=== PATIENT | male | born 1960 | race Caucasian/White ===

== ENCOUNTER → 2020-02-25 10:27 | Outpatient (BNVA) | payer MEDICARE, MEDICAID, SELFPAY | PROVIDERS: Family Provider Nurse Practitioner Family; PCP Nurse Practitioner Family; Visit Provider Registered Nurse | DX: K59.04 Chronic idiopathic constipation (principal); E78.5 Hyperlipidemia, unspecified; A49.9 Bacterial infection, unspecified; N39.0 Urinary tract infection, site not specified; R51 Headache; G40.909 Epilepsy, unspecified, not intractable, without status epilepticus; R10.9 Unspecified abdominal pain | CPT/HCPCS: 80053; 80061; 81000; 84443; 85025 ==

== ENCOUNTER → 2020-03-02 10:36 | Outpatient (BNVA) | payer MEDICAID, SELFPAY | PROVIDERS: Family Provider Nurse Practitioner Family; PCP Nurse Practitioner Family; Visit Provider Registered Nurse | DX: N39.0 Urinary tract infection, site not specified (principal); A49.9 Bacterial infection, unspecified; R89.9 Unspecified abnormal finding in specimens from other organs, systems and tissues | CPT/HCPCS: 81000 ==

== ENCOUNTER 2020-06-02 12:37 | Emergency (ER) | payer MEDICAID, SELFPAY ==
[2020-06-02] VITALS (8 sets, daily range): BP systolic 158–191; BP diastolic 73–93; PULSE 71–89; RESP 18–24; TEMP 36.3–36.6; O2SAT 96–98; BMI 32.8
--- NOTE | 2020-06-02 | CT_ITS ---
WS: [id number] EXAM: CT angio head neck* [id number] DATE OF EXAMINATION: 06/02/2020, 1705 hours COMPARISON: Noncontrast head CT from the same date. HISTORY: 59 years old with strokelike symptoms for the last 4 days. Right hand numbness. TECHNIQUE: Transaxial computed tomography images obtained from the level of the aortic arch through t he cranial vertex utilizing 95 mL of Omnipaque 350 with images acquired in the arterial phase and vie wed in multiple windows with 2-D reconstructions. DLP: 2742.[address] scans at [facility] use at least one of these dose optimization techniques: automat ed exposure control; mA and/or kV adjustment per patient size (includes targeted exams where dose is matched to clinical indication); or iterative reconstruction. FINDINGS: There is a minute amount of calcified plaque at the top of the aortic arch. There is slight intimal t hickening within both the right innominate artery and the left common carotid artery. Right common ca rotid artery is normal in caliber. There is a small amount of soft plaque and calcified plaque at the level of the bulb without extensively narrowing of the lumen. Right internal carotid artery is gonzales l through the level of the skull base other than some minimal calcified plaque. There is normal bifur cation into the anterior and middle cerebral arteries. Prominent posterior communicating artery is se en on this side as well. Right middle cerebral artery distribution and anterior cerebral artery distr ibution are unremarkable. The left common carotid artery shows a small amount of thickening. Soft and calcified plaque at the l evel of bulb without extensive narrowing of the lumen. Left internal carotid artery is normal through the level of the skull base and divides into the middle cerebral artery and anterior cerebral arteri es which are otherwise unremarkable. No findings of vascular malformation, aneurysm or occlusion are identified. There is normal origin to both vertebral arteries. Both vertebral arteries are of normal caliber. The y both contribute to a single basilar artery which is slightly ectatic suggesting underlying hyperten radha. Posterior superior cerebellar arteries, P1 and P2 segments are otherwise unremarkable. 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 There are advanced degenerative spondy losis changes C3-4 level with facet arthropathy changes uncovertebral joints appear changes causing r ight neural foraminal stenosis. Degenerative changes at the C4-5 level with bilateral mild neural for aminal stenosis. C5-6 level shows degenerative changes with left uncovertebral joint hypertrophy wu ges and mild left neural foraminal stenosis. Severe emphysematous lung changes are seen in the lung apices as well as underlying bronchiectasis. Shotty adenopathy within the mediastinum is presumably reactive in nature. No fracture or subluxation malalignment is noted. Thyroid gland is normal in size. Bilateral parotid glands and submandibular salivary glands are gonzales l in appearance. CT/CT angio headneck* [id number] IMPRESSION: Findings of slight soft and calcified plaque within both carotid systems as michael cribed. No findings of a hemodynamically significant stenosis in either carotid system seen. No findings of aneurysm, vascular malformation or occlusion demon strated. 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 Please see individual level description is as described in the body of the report. Severe underlying emphysematous lung changes.
--- NOTE | 2020-06-02 13:11 | ED_ITS ---
HPI - Neuro Symptoms/Deficit General: Chief Complaint: Neuro Symptoms/Deficit Stated Complaint: lips/hand numbness and tingling Time Seen by Provider: 06/02/20 13:11 Source: patient, family and RN notes reviewed History of Present Illness: HPI Narrative: 59 yo male with reported numbness of right face, upper and lower extremity (all on right side) every night for last 4 nights. no symptoms currently. no hx of cva or TIA. also gives information and when I ask if he had slurred speech she said yes because his face was numb on the right side. He does not take any blood thinners or aspirin. He does have a history of high blood pressure. No headache or other symptoms with this. Associated symptoms: Deny chest pain, headache(s), nausea or vomiting Review of Systems General: Reports: 10 or more systems reviewed and unremarkable except in HPI and below Const: Denies: fever(s) or chills Eyes: Denies: change in vision ENMT: Denies: throat pain Card: Denies: chest pain Resp: Denies: dyspnea GI: Denies: abdominal pain, nausea, vomiting or change in bowel habits Musc: Denies: muscle weakness Skin/Breast: Denies: rash Neuro: Reports: other (See HPI); Denies: headache(s) Psych: Denies: hopelessness or suicidal ideation Endo: Denies: polyuria Sriram/Lymph: Denies: easy bruising or easy bleeding All/Imm: Denies: urticaria PFS ED PFSH: Medical History (Updated 06/02/20 @ 17:31 by Joselyn Bellamy MD) Seizure Seizure disorder Family History Other Diabetes Heart disease Social History Smoking and tobacco status: current every day smoker cigarettes Packs smoked per day: 1 Alcohol intake: never Adopted: No Caregiver/support person: No Lives independently: No Household members: spouse Marital status: History of recent travel: No Sexually active: Yes Current gender identity: Male Physical Exam Const: COMMON NORMALS: no acute distress, patient oriented x3, alert and well nourished HENMT: COMMON NORMALS: normocephalic and Normal external nose present HEAD & SCALP: normocephalic NOSE: Normal external nose present MOUTH: no trismus Eye: COMMON NORMALS: EOMs intact bilaterally and conjunctivae normal CONJUNCTIVA: Yes conjunctivae normal Neck/C-Spine: COMMON NORMALS: full ROM, no lymphadenopathy and supple CERVICAL SPINE: Yes cervical ROM normal Lymph: LYMPHATIC: no lymphadenopathy noted Resp: COMMON NORMALS: normal respiratory effort, No retractions, No use of accessory muscles and clear to auscultation bilaterally EFFORT & INSPECTION: Yes able to speak in complete sentences AUSCULTATION: clear to auscultation bilaterally Cardio: COMMON NORMALS: regular rate and regular rhythm RATE: regular rate RHYTHM: regular rhythm GI: COMMON NORMALS: Normal to inspection, nondistended, normoactive bowel sounds present, Soft to palpation, non-tender and no masses INSPECTION: Yes normal to inspection AUSCULTATION: Yes normoactive bowel sounds PALPATION: Yes Soft to palpation, No Guarding due to palpation present (GI) and No Rigid due to palpation Back/Pelvis: OTHER: Normal range of motion Extremity: GENERAL: Yes normal exam except as noted Neuro: COMMON NORMALS: patient oriented x3, CN's II-XII intact bilaterally, no focal motor deficits and no sensory deficits noted SENSORIUM/ORIENTATION: Yes alert SPEECH: speech normal MOTOR EXAM: 5/5 motor strength present throughout and No Pronator motor function not present Psych: COMMON NORMALS: mental status grossly normal Skin: COMMON NORMALS: no rashes or lesions noted GENERAL SKIN EXAM: no rashes or lesions noted Course Vital Signs: Vital signs: Vital Signs Temperature 97.8 F 06/02/20 18:51 Pulse Rate 76 06/02/20 18:51 Respiratory Rate 18 06/02/20 18:51 Blood Pressure 170/93 06/02/20 18:51 Pulse Oximetry 96 06/02/20 18:51 MDM - Neuro Symptoms/Deficit MDM Narrative: Medical decision making narrative: 59-year-old male with symptoms that sound like a TIA for the last 3-[address] Maldonado, neurologist. She recommended CTA prior to discharge just to rule out LVO. She states patient can go home and have outpatient echo ordered which I have done and start Plavix 81 mg of aspirin and Lipitor 40 mg and follow-up in neurology clinic within the next 2 weeks. I will give patient all this information as well as prescriptions. He has had no symptoms while here and was happy with plan to go home. Lab Data: Attestation: I reviewed the patient's lab results. Labs: Lab Results 06/02/20 06/02/20 06/02/20 Range/Units 13:24 13:24 13:24 WBC 10.2 H (4.0-10.0) 10^3/ uL RBC 5.23 (4.1-5.3) 10^6/u L Hgb 15.9 (11.7-16.6) g/dL Hct 48.6 (42.0-52.0) % MCV 92.9 (80-94) fL MCH 30.4 (28.0-34.0) pg MCHC 32.7 (30.0-36.0) g/dL RDW 12.6 (12.1-15.1) % Plt Count 193 (130-400) 10^3/c mm MPV 9.8 (7.4-10.4) fL Neut % (Auto) 42.0 % Lymph % (Auto) 48.9 % [place] % (Auto) 6.5 % Eos % (Auto) 1.8 % Baso % (Auto) 0.6 % Neut # (Auto) 4.30 (1.8-7.7) 10^3/u L Lymph # (Auto) 5.0 H (0.8-4.8) 10^3/u L [place] # (Auto) 0.7 (0.2-0.9) 10^3/u L Eos # (Auto) 0.2 (0.0-0.8) 10^3/u L Baso # (Auto) 0.1 (0.0-0.1) 10^3/u L Nucleated RBC % (a uto) 0 % Nucleated RBCs # 0.0 /100WBC PT 12.30 (12.1-14.9) SECO NDS INR 0.89 (0.8-1.2) Sodium 139 (136-145) mmol/L Potassium 3.9 (3.5-5.1) mmol/L Chloride 102 (98-107) mmol/L Carbon Dioxide 26 (22-29) mmol/L Anion Gap 14.9 (5-19) BUN 9 (8-23) mg/dL Creatinine 0.9 (0.7-1.2) mg/dL GFR Calculation 85.8 L (90-130) mL/min Glucose 144 H (65-115) mg/dL Calculated Osmolal ity 287 (285-295) mOsm/k g Calcium 9.2 (8.5-10.5) mg/dL Total Bilirubin 0.5 (0.15-1.2) mg/dL AST 16 (0-40) U/L ALT 13 (0-41) U/L Alkaline Phosphata se 106 (40-130) IU/L Total Protein 7.5 (6.6-8.7) g/dL Albumin 4.3 (3.5-5.2) g/dL Globulin 3.2 (1.3-4.6) g/dL Imaging Data^: CT Head: Radiologist's impression: CT Scan Report Signed Patient: Frantz Macias #: [id number] : 8Acct#:[id number] Age/Sex: 59 / MADM Date: 06/02/20 Loc: ERRoom/Bed: Attending Dr: Ordering Provider/Ordering MD: Joselyn Bellamy MD Date of Service: 06/02/20 Procedure(s): CT head wo con* [id number] Accession Number(s): [id number] Report Number: [id number] WS: [id number] CT HEAD NONCONTRAST HISTORY: stroke sx for 4 days TECHNIQUE: Contiguous axial imaging performed through the brain in 2.5 mm imaging. Bone and soft tissue windows. Sagittal and coronal reformats reviewed. All CT scans at [facility] use at least one of these dose optimization techniques: automated exposure control; mA and/or kV adjustment per patient size (includes targeted exams where dose is matched to clinical indication); or iterative reconstruction. DLP: 754.4 mGy.cm COMPARISON: None available. No acute intracranial hemorrhage, midline shift or mass effect. Very minimal atrophy. Scattered areas of decreased attenuation in the periventricular white matter and through the basal ganglia and anterior limbs of internal capsules. Prior lacunar infarct LEFT thalamus. Area of decreased attenuation RIGHT occipital lobe. No large area of sulcal effacement. Ventricles: Normal size with no hydrocephalus. Paranasal sinuses: As visualized are clear. Mastoid air cells: Well pneumatized. Calvarium and scalp: Skull is intact with no soft tissue edema or swelling. CT/CT head wo con* [id number] IMPRESSION: 1. No acute intracranial hemorrhage or edema. 2. Chronic microvascular ischemic changes. Prior lacunar infarct RIGHT occipital lobe and LEFT thalamus. Additional lucent lacunar infarcts in the anterior limbs of internal capsules bilateral. Dictated By:Stephanie Miles DO Signed By:Stephanie Miles DOSigned Date/Time:06/02/20 1452 cta head and neck: Radiologist's impression: WS: [id number] EXAM: CT angio head neck* [id number] DATE OF EXAMINATION: 06/02/2020, 1705 hours COMPARISON: Noncontrast head CT from the same date. HISTORY: 59 years old with strokelike symptoms for the last 4 days. Right hand numbness. TECHNIQUE: Transaxial computed tomography images obtained from the level of the aortic arch through the cranial vertex utilizing 95 mL of Omnipaque 350 with images acquired in the arterial phase and viewed in multiple windows with 2-D reconstructions. DLP: 2742.[address] scans at [facility] use at least one of these dose optimization techniques: automated exposure control; mA and/or kV adjustment per patient size (includes targeted exams where dose is matched to clinical indication); or iterative reconstruction. FINDINGS: There is a minute amount of calcified plaque at the top of the aortic arch. There is slight intimal thickening within both the right innominate artery and the left common carotid artery. Right common carotid artery is normal in caliber. There is a small amount of soft plaque and calcified plaque at the level of the bulb without extensively narrowing of the lumen. Right internal carotid artery is normal through the level of the skull base other than some minimal calcified plaque. There is normal bifurcation into the anterior and middle cerebral arteries. Prominent posterior communicating artery is seen on this side as well. Right middle cerebral artery distribution and anterior cerebral artery distribution are unremarkable. The left common carotid artery shows a small amount of thickening. Soft and calcified plaque at the level of bulb without extensive narrowing of the lumen. Left internal carotid artery is normal through the level of the skull base and divides into the middle cerebral artery and anterior cerebral arteries which are otherwise unremarkable. No findings of vascular malformation, aneurysm or occlusion are identified. There is normal origin to both vertebral arteries. Both vertebral arteries are of normal caliber. They both contribute to a single basilar artery which is slightly ectatic suggesting underlying hypertension. Posterior superior cerebellar arteries, P1 and P2 segments are otherwise unremarkable. 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 There are advanced degenerative spondylosis changes C3-4 level with facet arthropathy changes uncovertebral joints appear changes causing right neural foraminal stenosis. Degenerative changes at the C4-5 level with bilateral mild neural foraminal stenosis. C5-6 level shows degenerative changes with left uncovertebral joint hypertrophy changes and mild left neural foraminal stenosis. Severe emphysematous lung changes are seen in the lung apices as well as underlying bronchiectasis. Shotty adenopathy within the mediastinum is presumably reactive in nature. No fracture or subluxation malalignment is noted. Thyroid gland is normal in size. Bilateral parotid glands and submandibular salivary glands are normal in appearance. CT/CT angio headneck* [id number] IMPRESSION: Findings of slight soft and calcified plaque within both carotid systems as described. No findings of a hemodynamically significant stenosis in either carotid system seen. No findings of aneurysm, vascular malformation or occlusion demonstrated. 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 Please see individual level description is as described in the body of the report. Severe underlying emphysematous lung changes. Dictated By:Cedrick Herman MD Signed By:Cedrick Hermanigned Date/Time:06/02/20 1736 EKG Data^: EKG 1: Attestation: I personally reviewed and interpreted this EKG as follows: Interpretation: EKG obtained 02 June 2020 at 1340 interpreted by me on same date at 1342. Sinus rhythm rate 78 normal IL interval, no acute ST elevation. Nonspecific ST changes. Discharge Plan Discharge Patient Disposition: Home Clinical Impression: Transient ischemic attack Condition: Stable Prescriptions: New Plavix 75 mg tablet 75 mg PO DAILY Qty: 30 RF: 0 Adult Aspirin Regimen 81 mg tablet,delayed release (DR/EC) 81 mg PO DAILY Qty: 30 RF: 0 Lipitor 40 mg tablet 40 mg PO DAILY Qty: 30 RF: 0 No Action topiramate [Topamax] 50 mg tablet 50 mg PO DAILY Qty: 90 RF: 1 lamotrigine [Lamictal] 100 mg tablet 100 mg PO BID 90 Days Qty: 180 RF: 1 magnesium hydroxide [Lu Milk of Magnesia] 400 mg/5 mL suspension See Rx Instructions .ROUTE .COMPLEX RF: 0 potassium gluconate 595 mg (99 mg) Tablet 595 mg PO DAILY RF: 0 hawthorn schultz 565 mg Capsule 565 mg PO DAILY PRN (Reason: UNKNOWN) RF: 0 Marin[place]-3 350 mg-235 mg- 90 mg-597 mg Capsule,Delayed Release(Dr/Ec) 1 cap PO BID RF: 0 lutein 1 cap PO DAILY RF: 0 Discharge Orders: Discharge Order (Routine); Ordered 06/02/20 Ordered By: Joselyn Bellamy Referrals: Nancy Maldonado MD [Physician] - (TIA, outpt echo ordered. started him on plavix , asa, lipitor as per discussion with Dr Maldonado. Needs to be seen within 1-2 weeks) Tracy Keys FNP [Primary Care Provider] - Coding Level of Care Code ED [place] [employer]er for Chg Fwd Exam Comprehensive
--- NOTE | 2020-06-02 13:12 | CT_ITS ---
WS: [id number] CT HEAD NONCONTRAST HISTORY: stroke sx for 4 days TECHNIQUE: Contiguous axial imaging performed through the brain in 2.5 mm imaging. Bone and soft tiss ue windows. Sagittal and coronal reformats reviewed. All CT scans at [facility] use at le ast one of these dose optimization techniques: automated exposure control; mA and/or kV adjustment pe r patient size (includes targeted exams where dose is matched to clinical indication); or iterative r econstruction. DLP: 754.4 mGy.cm COMPARISON: None available. No acute intracranial hemorrhage, midline shift or mass effect. Very minimal atrophy. Scattered areas of decreased attenuation in the periventricular white matter an d through the basal ganglia and anterior limbs of internal capsules. Prior lacunar infarct LEFT thala mus. Area of decreased attenuation RIGHT occipital lobe. No large area of sulcal effacement. Ventricles: Normal size with no hydrocephalus. Paranasal sinuses: As visualized are clear. Mastoid air cells: Well pneumatized. Calvarium and scalp: Skull is intact with no soft tissue edema or swelling. CT/CT head wo con* [id number] IMPRESSION: 1. No acute intracranial hemorrhage or edema. 2. Chronic microvascular ischemic changes. Prior lacunar infarct RIGHT occipit al lobe and LEFT thalamus. Additional lucent lacunar infarcts in the anterior l imbs of internal capsules bilateral.
--- NOTE | 2020-06-02 13:24 | ECG_ITS ---
[facility] Test Date: 2020-06-02 Pat Name: Frantz Macias Department: Room: Gender: Male [employer]: : 1960 Requested By: Joselyn Bellamy Order Number: [id number] MD: Frida Schrader M.D. Measurements Intervals Rudyard Rate: 78 P: 76 ME: 195 QRS: 59 QRSD: 101 T: 7 QT: 400 QTc: 457 Interpretive Statements SINUS RHYTHM No previous ECG available for comparison Electronically Signed On 06-02-2020 14:25:21 CDT by Frida Schrader M.D. [id number]
[2020-06-02 13:34] LABS: Basophils # 0.1 10^3/uL (0.0-0.1); Basophils % 0.6 %; Eosinophils # 0.2 10^3/uL (0.0-0.8); Eosinophils % 1.8 %; Hematocrit 48.6 % (42.0-52.0); Hemoglobin 15.9 g/dL (11.7-16.6); Lymphocytes % 48.9 %; Mean Corpuscular HGB Conc 32.7 g/dL (30.0-36.0); Mean Corpuscular Hemoglobin 30.4 pg (28.0-34.0); Mean Corpuscular Volume 92.9 fL (80-94); Mean Platelet Volume 9.8 fL (7.4-10.4); Monocytes # 0.7 10^3/uL (0.2-0.9); Monocytes % 6.5 %; Nucleated Red Blood Cells % 0 %; Platelet Count 193 10^3/cmm (130-400); Red Blood Count 5.23 10^6/uL (4.1-5.3); Red Cell Distribution Width 12.6 % (12.1-15.1); White Blood Count 10.2 10^3/uL (4.0-10.0)
[2020-06-02 13:48] LABS: INR 0.89 (0.8-1.2)
[2020-06-02 13:55] LABS: Alanine Aminotransferase 13 U/L (0-41); Albumin Level 4.3 g/dL (3.5-5.2); Alkaline Phosphatase 106 IU/L (40-130); Anion Gap 14.9 (5-19); Aspartate Amino Transferase 16 U/L (0-40); Blood Urea Nitrogen 9 mg/dL (8-23); Calcium 9.2 mg/dL (8.5-10.5); Carbon Dioxide 26 mmol/L (22-29); Chloride 102 mmol/L (98-107); Globulin 3.2 g/dL (1.3-4.6); Glomerular Filtration Rate 85.8 mL/min (90-130); Glucose 144 mg/dL (65-115); Osmolality Calculated 287 mOsm/kg (285-295); Potassium 3.9 mmol/L (3.5-5.1); Sodium 139 mmol/L (136-145); Total Bilirubin 0.5 mg/dL (0.15-1.2); Total Protein 7.5 g/dL (6.6-8.7)
--- NOTE | 2020-06-02 16:14 | PC.NURSE ---
Waiting for CTA before discharge
[2020-06-02] MEDS: iohexol 350 mg/mL 100 mL Btl IV (17:09)
--- NOTE | 2020-06-03 13:55 | DCPLANNER ---
manager garage had message to schedule a outpatient echo for patient. manager garage faxed patients order to centralized scheduling. manager garage will call for appointment information.
--- NOTE | 2020-06-05 14:37 | DCPLANNER ---
Patient has an echo scheduled for Wednesday, July 01, 2020 at 3:45. Centralized scheduling will call patient with appointment information.
--- NOTE | 2020-07-10 15:43 | DCPLANNER ---
Patient had a follow up appointment scheduled for 07.01.20 for an outpatient echo - patient did attend appointment.
== END 2020-06-02 19:10 | disposition home or self-care (01) ==
PROVIDERS: Emergency Provider Emergency Medicine; PCP Registered Nurse
DX: G45.9 Transient cerebral ischemic attack, unspecified (principal); F17.210 Nicotine dependence, cigarettes, uncomplicated
CPT/HCPCS: 12345; 70450; 70496; 70498; 80053; 85025; 85610; 93005; 99283; Q9967

== ENCOUNTER → 2020-06-15 09:50 | Outpatient (BNVA) | payer MEDICARE, MEDICAID, SELFPAY | PROVIDERS: PCP Registered Nurse; Referring Provider Emergency Medicine; Visit Provider Nurse Practitioner | DX: G45.9 Transient cerebral ischemic attack, unspecified (principal); G81.90 Hemiplegia, unspecified affecting unspecified side; I63.9 Cerebral infarction, unspecified | CPT/HCPCS: 99204 ==

== ENCOUNTER 2020-06-15 11:52 | Outpatient (CLI) | payer MEDICARE, MEDICAID, SELFPAY ==
[2020-06-15 12:53] LABS: Thyroid Stimulating Hormone 2.26 uIU/mL (0.27-4.20)
[2020-06-15 13:17] LABS: Estmated Average Glucose 111; Hemoglobin A1C 5.5 % (4.0-6.0)
== END 2020-06-15 11:53 | disposition home or self-care (01) ==
LOC: LAB 11:55
PROVIDERS: PCP Registered Nurse; Visit Provider Nurse Practitioner
DX: G45.9 Transient cerebral ischemic attack, unspecified (principal); G81.90 Hemiplegia, unspecified affecting unspecified side
CPT/HCPCS: 36415; 83036; 84443

== ENCOUNTER 2020-07-01 15:39 | Outpatient (CLI) | payer MEDICAID, SELFPAY ==
--- NOTE | 2020-07-01 15:51 | USCV_ITS ---
Frantz Macias Age: 59 Gender: M : 1960 Exam Date: 07/01/2020 16:00 Ordering Phys: Joselyn Bellamy MD Technologist: Suni Mera Exam Location: [facility] [place] Indication: SON TIA BP: / HR: 80 Rhythm: Sinus Technical Quality: Adequate MEASUREMENTS (Male / Female) Normal Values 2D ECHO LV Diastolic Diameter PLAX 3.4 cm 4.2 - 5.9 / 3.9 - 5.3 cm LV Systolic Diameter PLAX 3.3 cm LV Chamber Size 4.5 cm IVS Diastolic Thickness 1.5 cm 0.6 - 1.0 / 0.6 - 0.9 cm IVS Systolic Thickness 1.7 cm LVPW Diastolic Thickness 1.7 cm 0.6 - 1.0 / 0.6 - 0.9 cm LVPW Systolic Thickness 1.9 cm RV Chamber Size 2.3 cm LVOT Diameter 2.0 cm LV Ejection Fraction 2D Teich 26.2 % LV Ejection Fraction MOD 2C 62.0 % LV Ejection Fraction 2C AL 62.4 % LA Diameter 3.3 cm LA Width 3.7 cm LA Height 3.9 cm RA Width 3.0 cm RA Height 3.7 cm Aorta at Sinotubular Diameter 3.0 cm M-MODE LV Diastolic Diameter MM 5.1 cm 4.2 - 5.9 / 3.9 - 5.3 cm LV Systolic Diameter MM 3.4 cm LV Ejection Fraction MM Teich 61.2 % IVS Diastolic Thickness MM 1.1 cm 0.6 - 1.0 / 0.6 - 0.9 cm IVS Systolic Thickness MM 1.5 cm LVPW Diastolic Thickness MM 1.2 cm 0.6 - 1.0 / 0.6 - 0.9 cm LVPW Systolic Thickness MM 1.8 cm RV Diastolic Diameter MM 1.1 cm Aortic Annulus Diameter 2.8 cm LA Ao Ratio MM 1.4 MV E Point Septal Separation 0.6 cm DOPPLER AV Peak Velocity 174.0 cm/s LVOT Peak Velocity 84.3 cm/s AV Area Cont Eq vti 1.7 cm squared AV Area Cont Eq pk 1.6 cm squared MV Area PHT 6.9 cm squared Mitral E to A Ratio 0.9 MV E' Velocity 56.5 cm/s Mitral E to MV E' Ratio 9.3 Mitral E to LV E' Lateral Ratio 9.0 Mitral E to LV E' Septal Ratio 9.5 TR Peak Velocity 147.3 cm/s TR Peak Gradient 8.7 mmHg TR Mean Velocity 100.0 cm/s TR Mean Gradient 4.4 mmHg TR Velocity Time Integral 27.5 cm TV Peak E Velocity 67.0 cm/s PV Peak Velocity 50.0 cm/s RV Acceleration Time 0.2 s RV Ejection Time 0.4 s RV AcT/ET 0.5 FINDINGS Left Ventricle Normal left ventricular size, systolic function and wall thickness, with no regional wall motion abnormalities. LVEF is 55 to 60%. Normal left ventricular wall thickness. Normal diastolic filling pattern. Right Ventricle The right ventricle is normal in size and function. Right Atrium The right atrium is normal in size. Left Atrium The left atrium is normal in size. Mitral Valve Structurally normal mitral valve without significant stenosis or prolapse. There is no mitral regurgitation. Aortic Valve Aortic valve is thickened. No significant stenosis is noted. There is no aortic regurgitation. Tricuspid Valve Structurally normal tricuspid valve without significant stenosis or regurgitation. Insufficient TR jet to calculate RVSP. Pulmonic Valve Structurally normal pulmonic valve without significant stenosis. There is no pulmonic regurgitation. Pericardium Normal pericardium without effusion. Aorta Normal ascending aorta dimension. CONCLUSIONS LV systolic function is normal with EF of 55 to 60%. Normal diastolic function. No significant valvular heart disease is noted. No comparison studies are available. Vasquez López MD (Electronically Signed) Final Date: 13 July 2020 18:25 S
== END 2020-07-01 15:40 | disposition home or self-care (01) ==
LOC: US 15:41
PROVIDERS: PCP Registered Nurse; Visit Provider Emergency Medicine
DX: G45.9 Transient cerebral ischemic attack, unspecified (principal)
CPT/HCPCS: 93306

== ENCOUNTER 2021-02-09 18:25 | Emergency (ER) | payer MEDICARE, MEDICAID, SELFPAY ==
[2021-02-09 18:43] VITALS: BP 168/82; PULSE 88; RESP 18; TEMP 36.8; O2SAT 95; BMI 27.3
--- NOTE | 2021-02-09 19:06 | PC.NURSE ---
non adherent pressure dressing applied in triage. bleeding controlled.
--- NOTE | 2021-02-09 19:37 | XRR_ITS ---
PROCEDURE INFORMATION: Exam: XR Right Forearm Exam date and time: 02/09/2021 7:56 PM Age: 60 years old Clinical indication: Injury or trauma; Arm, lower; Injury date: 02/09/21; Injury details: Dog bite to right forearm w/ deep lac; Additional info: Dog bite with deep laceration TECHNIQUE: Imaging protocol: XR Right forearm. Views: 2 views. COMPARISON: No relevant prior studies available. FINDINGS: Bones/joints: Normal. Soft tissues: Soft tissue emphysema over the dorsal forearm consistent with history of penetrating trauma. XR/XR forearm RT 2V [id number] IMPRESSION: Soft tissue emphysema over the dorsal forearm consistent with history of penetrating trauma.
--- NOTE | 2021-02-09 22:34 | ED_ITS ---
HPI - Animal Bite General: Chief Complaint: Animal Bite Stated Complaint: DOG BITE R FOREARM Time Seen by Provider: 02/09/21 22:25 History of Present Illness: HPI narrative: Patient is a 60-year-old male comes to the ED with a dog bite to right forearm. Patient was trying to break up a dog that just attacked and bit his significant other. Dog has not had rabies vaccination. Patient says he is not up-to-date on his tetanus. He now has a large laceration to right forearm and he rates his pain a 10 out of 10. He states he has not taken anything for pain before coming to the ED. Associated symptoms: Deny chills, fever(s) or headache(s) Review of Systems Const: Denies: fever(s), chills or fatigue Eyes: Denies: change in vision or eye discomfort ENMT: Denies: throat pain, odynophagia, nasal discharge or nasal congestion Card: Denies: chest pain, palpitations, edema, swelling of feet/ankles, dyspnea on exertion or orthopnea Resp: Denies: dyspnea, productive cough or non-productive cough GI: Denies: abdominal pain, nausea, vomiting, diarrhea, constipation or hematochezia : Denies: flank pain, difficulty urinating, dysuria or hematuria Musc: Denies: neck pain, back pain or extremity swelling Skin/Breast: Reports: new lesions (Large laceration to right forearm from dog bite); Denies: rash Neuro: Denies: headache(s), numbness in extremities or weakness in extremities REPLACED BY [facility] ED PFSH: Medical History COPD (chronic obstructive pulmonary disease) Hemiparesis Seizure Seizure disorder Family History Other Diabetes Heart disease Social History Smoking and tobacco status: current every day smoker cigarettes Packs smoked per day: 1 Alcohol intake: never Adopted: No Caregiver/support person: No Lives independently: No Household members: spouse Marital status: History of recent travel: No Sexually active: Yes Current gender identity: Male Physical Exam Const: COMMON NORMALS: patient oriented x3 and alert GENERAL APPEARANCE: cooperative and comfortable HENMT: COMMON NORMALS: normocephalic HEAD & SCALP: normocephalic MOUTH: Normal oral and palatal mucosa present THROAT: posterior oropharynx normal and uvula midline Neck/C-Spine: COMMON NORMALS: supple GENERAL: Yes normal visual inspection Resp: COMMON NORMALS: normal respiratory effort, No retractions, No use of accessory muscles and clear to auscultation bilaterally AUSCULTATION: clear to auscultation bilaterally Cardio: COMMON NORMALS: regular rate, regular rhythm, S1 normal heart sound present, S2 normal heart sound present, No gallops present (Cardio), No clicks present (Cardio), No murmurs present (Cardio) and Peripheral pulses 2+ throughout RATE: regular rate RHYTHM: regular rhythm HEART SOUNDS: S1 normal heart sound present and S2 normal heart sound present PERIPHERAL PULSES: Peripheral pulses 2+ throughout GI: COMMON NORMALS: Normal to inspection, nondistended, normoactive bowel sounds present, Soft to palpation, non-tender and no masses PALPATION: Yes Soft to palpation : COMMON NORMALS: Yes no CVA tenderness BLADDER/KIDNEY EXAM: Yes no CVA tenderness Back/Pelvis: COMMON NORMALS: no CVA tenderness Extremity: NARRATIVE EXTREMITY EXAM: Right forearm?patient has large superficial V-shaped laceration that is approximately 20 cm in length. Mild active bleeding present. No visible tendon damage seen. Patient also has a small linear and superficial 1 cm laceration to forearm as well. Neurovascular tact distally. GENERAL: Yes normal exam except as noted Neuro: COMMON NORMALS: patient oriented x3 and moves all extremities SENSORIUM/ORIENTATION: Yes alert Skin: NARRATIVE SKIN EXAM: Patient has a large superficial V-shaped laceration on right forearm that is approximately 20 cm in length. He also has a second laceration that is linear and superficial approximately 1 cm in length on the forearm as well. GENERAL SKIN EXAM: dry skin Procedures Laceration Laceration 1: Site: upper extremity (Forearm) Side (If applicable): right Size (cm): 20 Description: irregular (Irregular V shaped) Depth: simple, single layer Local Anesthetic: lidocaine 1% and with epi Amount of anesthesia used (mL): 35 Pre-repair: wound explored and irrigated extensively (with multiple bottles of normal saline and skin cleaned with CHG swab.) Skin layer closed with: nylon Size (cm): 3-0 Number of sutures: 30 Technique: simple, interrupted Laceration 2: Site: upper extremity (Forearm) Side (If applicable): right Size (cm): 1 Description: linear Depth: simple, single layer Local Anesthetic: lidocaine 1% and with epi Amount of anesthesia used (mL): 5 Pre-repair: irrigated extensively (With normal saline) Skin layer closed with: nylon Size (cm): 3-0 Number of sutures: 2 Technique: simple, interrupted Course Vital Signs: Vital signs: Vital Signs Temperature 98.2 F 02/09/21 18:43 Pulse Rate 92 02/10/21 01:04 Respiratory Rate 16 02/10/21 01:04 Blood Pressure 172/81 02/10/21 01:04 Pulse Oximetry 93 02/10/21 01:04 MDM - Animal Bite MDM Narrative: Medical decision making narrative: Patient is a 60-year-old male comes to the ED with laceration on forearm due to dog bite. Patient owns the dog and it is not vaccinated for rabies. Patient said he is going to have dog quarantined animal control for evaluation for rabies. I told him to come back to the ED and 24 to 48 hours if he is unable to do that any wants to start rabies vaccination series. Patient has 1 very large V-shaped laceration in the second laceration is small linear lack. Patient's lacerations was irrigated extensively with normal saline and skin was cleaned with CHG swab. The larger laceration was closed with 30 sutures and the second laceration was closed using 2 sutures. Lidocaine 1% with epi was used as local. X-ray showed no bone fractures but did show the soft tissue damage. Patient was given a dose of Augmentin, updated tetanus and hydrocodone for pain while here in the ED. He was discharged home on a prescription for Augmentin. He was instructed on how to care for laceration site and to have sutures removed in about 10 days. He was told to return to the ED immediately if he wants to start the rabies series vaccination. Patient understood agree with plan. Imaging Data^: Xray Ortho: Attestation: I personally reviewed and interpreted this imaging study as follows: Radiologist's impression: [address] [address]DNsu ReportSigned Patient: Frantz Macias [place] #: [id number]#:[id number]/Sex: 60 / MADM Date: 02/09/21Loc: ERRoom/Bed:Attending Dr: Ordering Provider/Ordering MD: Tristen Joshi Date of Service: 02/09/21 Procedure(s): XR forearm RT 2V 17057 Accession Number(s): [id number] Report Number: [id number] PROCEDURE INFORMATION: Exam: XR Right Forearm Exam date and time: 02/09/2021 7:56 PM Age: 60 years old Clinical indication: Injury or trauma; Arm, lower; Injury date: 02/09/21; Injury details: Dog bite to right forearm w/ deep lac; Additional info: Dog bite with deep laceration TECHNIQUE: Imaging protocol: XR Right forearm. Views: 2 views. COMPARISON: No relevant prior studies available. FINDINGS: Bones/joints: Normal. Soft tissues: Soft tissue emphysema over the dorsal forearm consistent with history of penetrating trauma. XR/XR forearm RT 2V [id number] IMPRESSION: Soft tissue emphysema over the dorsal forearm consistent with history of penetrating trauma. Dictated By:Adam Edwards MDSigned By:Adam Edwards MDSigned Date/Time:02/09/212114DD/ 13 Discharge Plan Discharge Patient Disposition: Home Clinical Impression: Laceration Dog bite Qualifiers: Encounter type: initial encounter Qualified Code(s): W54.0XXA - Bitten by dog, initial encounter Condition: Stable Prescriptions: New amoxicillin-pot clavulanate 500-125 mg tablet 1 tab PO BID 7 Days Qty: 14 RF: 0 No Action topiramate [Topamax] 50 mg tablet 50 mg PO DAILY Qty: 90 RF: 1 lamotrigine [Lamictal] 100 mg tablet 100 mg PO BID 90 Days Qty: 180 RF: 1 magnesium hydroxide [Lu Milk of Magnesia] 400 mg/5 mL suspension See Rx Instructions .ROUTE .COMPLEX RF: 0 rosuvastatin 20 mg tablet 20 mg PO DAILY Qty: 90 RF: 0 Combivent Respimat 20-100 mcg/actuation mist 1 puff INHALATION Q6H Qty: 4 RF: 1 Plavix 75 mg tablet 75 mg PO DAILY Qty: 30 RF: 0 Adult Aspirin Regimen 81 mg tablet,delayed release (DR/EC) 81 mg PO DAILY Qty: 30 RF: 0 potassium gluconate 595 mg (99 mg) Tablet 595 mg PO DAILY RF: 0 hawthorn schultz 565 mg Capsule 565 mg PO DAILY PRN (Reason: UNKNOWN) RF: 0 [place]-3 350 mg-235 mg- 90 mg-597 mg Capsule,Delayed Release(Dr/Ec) 1 cap PO BID RF: 0 lutein 1 cap PO DAILY RF: 0 Discharge Orders: Discharge ED (Routine); Ordered 02/10/21 Ordered By: Tristen Joshi Referrals: Tracy Keys FNP [Primary Care Provider] - Discharge Diet: Regular Discharge Activity: Increase activity as tolerated and Limit activity as instructed Patient Instructions: Animal Bite (ED), Suture Care (ED), Laceration (ED) Activity Restrictions/Additional Instructions: Have dog quarantined by animal control to monitor for rabies. If you are unable to get dog quarantined come back in next 24-48 hrs. to start rabies vaccinations. Take full course of antibiotics as prescribed. Keep laceration site clean and dry for the next 48 hours. Then after that you can clean and re- bandage daily. Watch for signs of infection such as redness, warmth, increased tenderness and puslike drainage. If you see the signs of infection return to the ED, urgent care or PCP for reevaluation. call your PCP to schedule a follow- up appointment for reevaluation and suture removal in about 10 days. Continue taking all home meds. Follow discharge plans as discussed. You can return to the ED if symptoms worsen. Coding Level of Care Code ED Clearance Representative for Moses Pineda
[2021-02-09] MEDS: amoxicillin-clav 500-125 mg Tablet 1 TAB PO (22:43)
[2021-02-09] MEDS: HYDROcodone-acetaminophen 7.5-325 mg Tablet 1 TAB PO (22:43)
[2021-02-09] MEDS: tetanus-dipt-pertussis 0.5 mL SDV IM (22:44)
[2021-02-10 01:04] VITALS: BP 172/81; PULSE 92; RESP 16; O2SAT 93
== END 2021-02-10 01:12 | disposition home or self-care (01) ==
PROVIDERS: Emergency Provider Physician Assistant; PCP Registered Nurse
DX: S51.811A Laceration without foreign body of right forearm, initial encounter (principal); W54.0XXA Bitten by dog, initial encounter
CPT/HCPCS: 12006; 73090; 90471; 90715; 99283

== ENCOUNTER 2021-02-24 13:09 | Outpatient (CLI) | payer MEDICAID, SELFPAY | END 2021-02-24 13:10 | disposition home or self-care (01) | PROVIDERS: PCP Registered Nurse; Visit Provider Thoracic Surgery (Cardiothoracic Vascular Surgery) | DX: L98.492 Non-pressure chronic ulcer of skin of other sites with fat layer exposed (principal) | CPT/HCPCS: 11043; G0463 ==

== ENCOUNTER 2021-03-03 13:03 | Outpatient (CLI) | payer MEDICARE, MEDICAID, SELFPAY | END 2021-03-03 13:04 | disposition home or self-care (01) | LOC: WOUND 13:11 | PROVIDERS: PCP Registered Nurse; Visit Provider Thoracic Surgery (Cardiothoracic Vascular Surgery) | DX: L98.492 Non-pressure chronic ulcer of skin of other sites with fat layer exposed (principal) | CPT/HCPCS: 11042 ==

== ENCOUNTER 2021-03-10 09:33 | Outpatient (CLI) | payer MEDICAID, SELFPAY | END 2021-03-10 09:34 | disposition home or self-care (01) | LOC: WOUND 09:34 | PROVIDERS: PCP Registered Nurse; Visit Provider Thoracic Surgery (Cardiothoracic Vascular Surgery) | DX: L98.492 Non-pressure chronic ulcer of skin of other sites with fat layer exposed (principal) | CPT/HCPCS: 11042 ==

== ENCOUNTER 2021-03-17 09:43 | Outpatient (CLI) | payer MEDICARE, MEDICAID, SELFPAY | END 2021-03-17 09:44 | disposition home or self-care (01) | LOC: WOUND 09:45 | PROVIDERS: PCP Registered Nurse; Visit Provider Thoracic Surgery (Cardiothoracic Vascular Surgery) | DX: Z09 Encounter for follow-up examination after completed treatment for conditions other than malignant neoplasm (principal) | CPT/HCPCS: 99212 ==

== ENCOUNTER → 2022-06-08 10:10 | Outpatient (BNVA) | payer MEDICAID, SELFPAY | PROVIDERS: PCP Registered Nurse; Visit Provider Registered Nurse | DX: J44.9 Chronic obstructive pulmonary disease, unspecified (principal); E78.5 Hyperlipidemia, unspecified; G40.909 Epilepsy, unspecified, not intractable, without status epilepticus; F17.200 Nicotine dependence, unspecified, uncomplicated; R03.0 Elevated blood-pressure reading, without diagnosis of hypertension | CPT/HCPCS: 80053; 80061; 84443; 85025 ==

== ENCOUNTER → 2022-06-29 11:42 | Outpatient (BNVA) | payer MEDICAID, SELFPAY | PROVIDERS: PCP Registered Nurse; Visit Provider Registered Nurse | DX: R69 Illness, unspecified (principal); I73.9 Peripheral vascular disease, unspecified; L60.8 Other nail disorders; M79.672 Pain in left foot | CPT/HCPCS: 85025; 87426 ==

== ENCOUNTER → 2022-07-20 13:52 | Outpatient (BNVA) | payer MEDICARE, MEDICAID, SELFPAY | PROVIDERS: PCP Registered Nurse; Visit Provider Podiatrist Foot & Ankle Surgery | DX: Q66.71 Congenital pes cavus, right foot (principal); Q66.72 Congenital pes cavus, left foot; I73.9 Peripheral vascular disease, unspecified; B35.1 Tinea unguium | CPT/HCPCS: 11721; 73630; 99204 ==

== ENCOUNTER → 2022-08-31 09:28 | Outpatient (BNVA) | payer MEDICARE, MEDICAID, SELFPAY | PROVIDERS: PCP Registered Nurse; Visit Provider Registered Nurse | DX: R68.89 Other general symptoms and signs (principal); J11.1 Influenza due to unidentified influenza virus with other respiratory manifestations; J44.9 Chronic obstructive pulmonary disease, unspecified; J44.1 Chronic obstructive pulmonary disease with (acute) exacerbation | CPT/HCPCS: 80053; 85025; 87400 ==

== ENCOUNTER 2022-12-19 11:00 | Outpatient (CLI) | payer MEDICARE, MEDICAID, SELFPAY | END 2022-12-19 11:01 | disposition home or self-care (01) | LOC: SLEEP 12-22 16:12 | PROVIDERS: PCP Registered Nurse; Visit Provider Registered Nurse | DX: J44.9 Chronic obstructive pulmonary disease, unspecified (principal) | CPT/HCPCS: 94762 ==

== ENCOUNTER 2022-12-26 01:18 | Inpatient (IN) | payer MEDICARE, MEDICAID, SELFPAY ==
[2022-12-26] VITALS (19 sets, daily range): BP systolic 118–188; BP diastolic 71–103; PULSE 98–130; RESP 16–26; TEMP 36.4–36.8; O2SAT 90–96; BMI 34.4; BMI 33.4
--- NOTE | 2022-12-26 01:25 | ECG_ITS ---
[facility] Test Date: 2022-12-26 Pat Name: Frantz Macias Department: Room: 259 Gender: Male [employer]: : 1960 Requested By: Bailee Barker Order Number: [id number] Ildefonso MD: Demetrius Fong M.D. Measurements Intervals Hunter Rate: 120 P: 153 SC: 188 QRS: 141 QRSD: 117 T: -31 QT: 299 QTc: 422 Interpretive Statements ECTOPIC ATRIAL TACHYCARDIA LEFT POSTERIOR FASCICULAR BLOCK [QRS AXIS > 109, INFERIOR Q] NONSPECIFIC ST & T-WAVE ABNORMALITY Compared to ECG 06/02/2020 13:40:54 Left posterior fascicular block now present T-wave abnormality now present Sinus rhythm no longer present Electronically Signed On 12-26-2022 23:37:26 CDT by Demetrius Fong M.D. [id number]
--- NOTE | 2022-12-26 01:30 | XRR_ITS ---
PROCEDURE INFORMATION: Exam: XR Chest Exam date and time: 12/26/2022 1:41 AM Age: 62 years old Clinical indication: Shortness of breath; Additional info: SOB TECHNIQUE: Imaging protocol: Radiologic exam of the chest. Views: 1 view. COMPARISON: CT angio headneck* [id number] 06/02/2020 5:01 PM FINDINGS: Lungs: Reticular changes of pulmonary interstitium with widespread fibrosis. Emphysematous lung disease. Negative for consolidation. Pleural spaces: Unremarkable. No pleural effusion. No pneumothorax. Heart/Mediastinum: Unremarkable. No cardiomegaly. Bones/joints: Unremarkable. XR/XR chest 1V portable [id number] IMPRESSION: Negative for focal acute pulmonary disease.
[2022-12-26 01:35] LABS: Basophils # 0.1 10^3/uL (0.0-0.1); Basophils % 0.7 %; Eosinophils # 0.5 10^3/uL (0.0-0.8); Eosinophils % 3.2 %; Hematocrit 49.1 % (42.0-52.0); Hemoglobin 15.9 g/dL (11.7-16.6); Lymphocytes # 6.2 10^3/uL (0.8-4.8); Lymphocytes % 41.4 %; Mean Corpuscular HGB Conc 32.4 g/dL (30.0-36.0); Mean Corpuscular Hemoglobin 29.1 pg (28.0-34.0); Mean Corpuscular Volume 89.8 fl (80-94); Mean Platelet Volume 9.5 fL (7.4-10.4); Monocytes # 1.1 10^3/uL (0.2-0.9); Neutrophils # 7.12 10^3/uL (1.8-7.7); Neutrophils % 47.4 %; Nucleated Red Blood Cells % 0 %; Platelet Count 284 10^3/cmm (130-400); Red Blood Count 5.47 10^6/uL (4.1-5.3); Red Cell Distribution Width 12.4 % (12.1-15.1)
--- NOTE | 2022-12-26 01:35 | ED_ITS ---
HPI - SOB/Dyspnea General: Chief Complaint: Shortness of Breath/Dyspnea Stated Complaint: COPD, SOB Time Seen by Provider: 12/26/22 01:25 Source: patient and EMS Mode of arrival: EMS Limitations: no limitations History of Present Illness: HPI Narrative: 62-year-old male who has a history of COPD he is a chronic smoker states he is to be on 2 L oxygen at baseline states he lost insurance and has not been using oxygen states been using his girlfriends he states over the last 5 days has had increasing wheezing along with shortness of breath and cough he denies any fever patient here is tachypneic and in mild to moderate distress he is requiring 4 L of oxygen here with audible wheezing. He denies any vomiting or diarrhea he did receive albuterol Atrovent and Solu-Medrol in route. Associated symptoms: Deny abdominal pain, chest pain, fever(s), nausea or vomiting Review of Systems Const: Denies: fever(s), chills, body aches or change in appetite Eyes: Denies: blurry vision or eye discomfort ENMT: Denies: throat pain or dental pain Card: Denies: chest pain Resp: Reports: dyspnea, non-productive cough and wheezing GI: Denies: abdominal pain, nausea, vomiting or diarrhea : Denies: dysuria Musc: Denies: neck pain or back pain Skin/Breast: Denies: rash Neuro: Denies: headache(s) Psych: Denies: depression Sriram/Lymph: Denies: easy bruising All/Imm: Denies: urticaria PFSH ED PFSH: Medical History COPD (chronic obstructive pulmonary disease) Hemiparesis Seizure Seizure disorder Smoking addiction Family History Other Diabetes Heart disease Social History Smoking and tobacco status: current every day smoker cigarettes Packs smoked per day: 1 Alcohol intake: former Adopted: No Caregiver/support person: No Lives independently: No Household members: spouse Marital status: service: No Current occupational status: disabled Sexually active: Yes Current gender identity: Male Physical Exam Const: COMMON NORMALS: patient oriented x3 GENERAL APPEARANCE: in distress and ill appearing HENMT: COMMON NORMALS: normocephalic and atraumatic HEAD & SCALP: normocephalic and atraumatic Eye: COMMON NORMALS: Equal, round and reactive pupils present and EOMs intact bilaterally PUPIL: Yes Equal, round and reactive pupils present Neck/C-Spine: COMMON NORMALS: full ROM and supple Chest: COMMONS NORMALS: normal inspection of the chest and normal palpation of entire chest wall Resp: EFFORT & INSPECTION: Yes tachypneic and Yes respiratory distress AUSCULTATION: wheezes Cardio: COMMON NORMALS: regular rhythm and No murmurs present (Cardio) RATE: tachycardic RHYTHM: regular rhythm GI: COMMON NORMALS: Normal to inspection, nondistended, normoactive bowel sounds present, Soft to palpation, non-tender and no masses PALPATION: Yes Soft to palpation Extremity: COMMON NORMALS: normal to inspection and full ROM Neuro: COMMON NORMALS: patient oriented x3, moves all extremities and no focal motor deficits Psych: COMMON NORMALS: mental status grossly normal, Normal thought process present and cooperative THOUGHT PROCESS: Normal thought process present Skin: COMMON NORMALS: no rashes or lesions noted and no wounds GENERAL SKIN EXAM: no rashes or lesions noted Course Vital Signs: Vital signs: Vital Signs Temperature 97.8 F 12/26/22 01:19 Pulse Rate 120 H 12/26/22 02:03 Respiratory Rate 19 H 12/26/22 02:14 Blood Pressure 147/85 12/26/22 02:03 Pulse Oximetry 94 12/26/22 02:14 Oxygen Delivery Me thod 12/26/22 02:14 Oxygen Flow Rate 4 12/26/22 02:14 MDM - SOB/Dyspnea Medical Decision Making Patient presents with COPD exacerbation he is requiring 4 L oxygen here he does have wheezing no signs of pneumonia he has no hypercapnia I spoke to hospitalist and will admit at this time. Lab Data 12/26/22 01:27 12/26/22 01:27 Labs/Radiology: Radiology Impressions Chest X-Ray 12/26/22 01:30 IMPRESSION: Negative for focal acute pulmonary disease. Laboratory Results WBC 15.0 10^3/uL (4.0-10.0) H 12/26/22 01:27 RBC 5.47 10^6/uL (4.1-5.3) H 12/26/22 01:27 Hgb 15.9 g/dL (11.7-16.6) 12/26/22 01:27 Hct 49.1 % (42.0-52.0) 12/26/22 01: MCV 89.8 fl (80-94) 12/26/22 01:27 MCH 29.1 pg (28.0-34.0) 12/26/22 01: MCHC 32.4 g/dL (30.0-36.0) 12/26/22 01: RDW 12.4 % (12.1-15.1) 12/26/22 01:27 Plt Count 284 10^3/cmm (130-400) 12/26/22 01: MPV 9.5 fL (7.4-10.4) 12/26/22 01: Neut % (Auto) 47.4 % 12/26/22 01: Lymph % (Auto) 41.4 % 12/26/22 01: Todd % (Auto) 7.0 % 12/26/22 01: Eos % (Auto) 3.2 % 12/26/22 01: Baso % (Auto) 0.7 % 12/26/22 01:27 Neut # (Auto) 7.12 10^3/uL (1.8-7.7) 12/26/22 01: Lymph # (Auto) 6.2 10^3/uL (0.8-4.8) H 12/26/22 01:27 Todd # (Auto) 1.1 10^3/uL (0.2-0.9) H 12/26/22 01:27 Eos # (Auto) 0.5 10^3/uL (0.0-0.8) 12/26/22 01:27 Baso # (Auto) 0.1 10^3/uL (0.0-0.1) 12/26/22 01:27 Nucleated RBC % (auto) 0 % 12/26/22 01: Nucleated RBCs # 0.0 /100WBC 12/26/22 01:27 PT 13.50 SECONDS (12.1-14.9) 12/26/22 01:27 INR 1.00 (0.8-1.2) 12/26/22 01:27 Specimen Type Arterial 12/26/22 01:55 Sample Site Radial, left 12/26/22 01:55 ABG pH 7.45 (7.35-7.45) 12/26/22 01:55 ABG pCO2 41.7 mmHg (35-45) 12/26/22 01:55 ABG pO2 82.3 mmHg (80.0-100.0) 12/26/22 01:55 ABG HCO3 28.8 mmol/L (22-26) H 12/26/22 01:55 ABG Base Excess 4.3 mmol/L (-2.0-2.0) H 12/26/22 01:55 Jerry Test Pos 12/26/22 01:55 Hematocrit 49.0 % (42-52) 12/26/22 01:55 Hgb O2 Saturation 95.6 % (95-100) 12/26/22 01:55 Carboxyhemoglobin 1.5 %THgb (0.4-20.1) 12/26/22 01:55 Methemoglobin 0.5 % (0.4-1.5) 12/26/22 01:55 Total Hemoglobin 16.0 g/dL (14-18) 12/26/22 01:55 O2 Delivery Device Nc 12/26/22 01:55 O2 Liters/Min 3.0 % 12/26/22 01:55 Hand Binder Cutter ID [id number] 12/26/22 01:55 Sodium 141 mmol/L (136-145) 12/26/22 01:27 Potassium 4.3 mmol/L (3.5-5.1) 12/26/22 01:27 Chloride 100 mmol/L (98-107) 12/26/22 01:27 Carbon Dioxide 28 mmol/L (22-29) 12/26/22 01:27 Anion Gap 17.3 (5-19) 12/26/22 01:27 BUN 9 mg/dL (8-23) 12/26/22 01:27 Creatinine 1.1 mg/dL (0.7-1.2) 12/26/22 01:27 GFR Calculation 67.4 mL/min (90-130) L 12/26/22 01:27 Glucose 115 mg/dL (65-115) 12/26/22 01:27 Calculated Osmolality 292 mOsm/kg (285-295) 12/26/22 01:27 Calcium 9.6 mg/dL (8.5-10.5) 12/26/22 01:27 Total Bilirubin 0.4 mg/dL (0.15-1.2) 12/26/22 01:27 AST 19 U/L (0-40) 12/26/22 01:27 ALT 17 U/L (0-41) 12/26/22 01:27 Alkaline Phosphatase 87 U/L (40-130) 12/26/22 01:27 NT-Pro-B Natriuret Pep 1929 pg/mL (0-125) H 12/26/22 01:27 Total Protein 8.2 g/dL (6.6-8.7) 12/26/22 01:27 Albumin 3.9 g/dL (3.5-5.2) 12/26/22 01:27 Globulin 4.3 g/dL (1.3-4.6) 12/26/22 01:27 Influenza Type A Ag negative (Negative) 12/26/22 01:34 Influenza Type B Ag negative (Negative) 12/26/22 01:34 SARS-CoV-2 Ag (Rapid) negative (Negative) 12/26/22 01:34 Discharge Plan Discharge Patient Disposition: Admitted As Inpatient Admit Provider: Wilma Weber Clinical Impression: Acute exacerbation of chronic obstructive airways disease, Acute respiratory failure with hypoxia Condition: Stable Coding Level of Care Code ED Lift Team Technician for Moses Pineda
[2022-12-26] MEDS: hyDRALAzine 20 mg/mL INJ 1 mL 10 MG IVP (01:42)
[2022-12-26 02:03] LABS: ABG PCO2 41.7 mmHg (35-45); ABG PH Result 7.45 (7.35-7.45); Base Excess ABG 4.3 mmol/L (-2.0-2.0); Blood Gas Allen Test Pos; Blood Gas Sample Site Radial, left; Blood Gas Sample Type Arterial; Carboxyhemoglobin 1.5 %THgb (0.4-20.1); HCO3 ABG 28.8 mmol/L (22-26); HGB O2 Sat 95.6 % (95-100); Methemoglobin 0.5 % (0.4-1.5); Oxygen Device NC; PO2 ABG 82.3 mmHg (80.0-100.0)
[2022-12-26 02:03] LABS: Alanine Aminotransferase 17 U/L (0-41); Albumin Level 3.9 g/dL (3.5-5.2); Alkaline Phosphatase 87 U/L (40-130); Aspartate Amino Transferase 19 U/L (0-40); Blood Urea Nitrogen 9 mg/dL (8-23); Calcium 9.6 mg/dL (8.5-10.5); Carbon Dioxide 28 mmol/L (22-29); Chloride 100 mmol/L (98-107); Globulin 4.3 g/dL (1.3-4.6); Glomerular Filtration Rate 67.4 mL/min (90-130); Glucose 115 mg/dL (65-115); NT Pro B Type Natriuretic Pept 1929 pg/mL (0-125); Osmolality Calculated 292 mOsm/kg (285-295); Sodium 141 mmol/L (136-145); Total Bilirubin 0.4 mg/dL (0.15-1.2); Total Protein 8.2 g/dL (6.6-8.7)
[2022-12-26 02:03] LABS: Influenza A by IFA negative (Negative); Influenza B by IFA negative (Negative); SARS Covid-2 Antigen negative (Negative)
[2022-12-26 02:04] LABS: Anion Gap 17.3 (5-19); Potassium 4.3 mmol/L (3.5-5.1)
[2022-12-26] MEDS: albuterol 2.5 mg/3 mL Neb INHALATION (02:12)
--- NOTE | 2022-12-26 03:00 | P.HP_ITS ---
Providers/Chief Complaint Admitting Physician: Wilma Weber MD Primary Care Provider: ROSENDO Lazo Chief Complaint: COPD, SOB History of Present Illness Frantz Macias is a 62 year old male who carries history of COPD, uses oxygen about 2 L only at night, active smoker, presented with chief complaint of shortness of breath. Patient is stating that for last 3 to 4 days he has been experiencing productive cough, shortness of breath and audible wheezing. He noticed temperature around 100 Fahrenheit at home, he has not noticed any vomiting but endorsing nausea. He has not noticed any diarrhea. He is denying chest pain. Patient is stating that sometimes he feels blurring of his heart he does not carry any history of atrial flutter or atrial fibrillation. Does not take any anticoagulating agent. He has been smoking since his teenage years. He was smoking 1 pack/day now he has cut back to 3 cigarettes because of worsening of shortness of breath. In the ER he was diagnosed with COPD exacerbation and active wheezing he was given albuterol and hydralazine for hypertension and wheezing. I requested D-dimer which came back high, requesting CTA chest to rule out PE Goals of care discussed with the patient he is DNI/DNI Review of Systems Const: Reports: fever(s) and chills Eyes: Denies: change in vision ENMT: Denies: throat pain Card: Denies: chest pain Resp: Reports: dyspnea and productive cough GI: Reports: nausea : Denies: flank pain Musc: Denies: neck pain Skin/Breast: Denies: skin tenderness Neuro: Denies: headache(s) Psych: Reports: anxiety Endo: Denies: polyuria or cold intolerance Medications/Allergies Home Medications Medication Instructions Recorded Confirmed Last Taken Type budesonide 0.5 mg/2 mL suspension 1 mg (4 mL) inhalation DAILY J44.1 08/31/22 0 12/26/22 12/25/22 09:00 Rx for nebulization COPD 30 days #60 mL fluticasone fur. 200 mcg-umeclid 1 inh inhalation DAILY #1 ea 10/26/22 12/26/22 12/25/22 09:00 Rx 62.5 mcg-vilant 25 mcg inhalat.powder (Trelegy Ellipta) oxygen 2 l nasal DIRECTED 365 days #1 11/16/22 12/26/22 12/25/22 09:00 Rx ea lamotrigine 25 mg tablet See Rx Instructions .Route 12/22/22 12/26/22 12/21/22 09:00 Rx .COMPLEX #30 tabs rosuvastatin 20 mg tablet See Rx Instructions .Route 12/22/22 12/26/22 12/25/22 09:00 Rx .COMPLEX #90 tabs Allergies Allergy/AdvReac Type Severity Reaction Status Date / Time No Known Allergies Allergy Verified 11/16/22 09:36 PFSH Acute PFSH: Medical History Chronic headache disorder Chronic idiopathic constipation COPD (chronic obstructive pulmonary disease) Hemiparesis Onychomycosis PAD (peripheral artery disease) Seizure Seizure disorder Smoking addiction TIA (transient ischemic attack) UTI (urinary tract infection), bacterial Family History Other Diabetes Heart disease Social History Smoking and tobacco status: current every day smoker cigarettes Packs smoked per day: 1 Alcohol intake: former Adopted: No Caregiver/support person: No Lives independently: No Household members: spouse Marital status: service: No Current occupational status: disabled Sexually active: Yes Current gender identity: Male Vitals/I&O/Wt Last Vital Signs Temp 97.8 F 12/26/22 01:19 Pulse 120 H 12/26/22 02:03 Resp 19 H 12/26/22 02:14 BP 147/85 12/26/22 02:03 Pulse Ox 94 12/26/22 02:14 O2 Del Method 12/26/22 02:45 O2 Flow Rate 4 12/26/22 02:14 Weight last 48 hrs Weight 96.729 kg Weight 99.79 kg Physical Exam Narrative: Patient has audible wheezing Currently on 4 L GCS 15 Nonfocal neuro exam Digital clubbing of hands S1, S2, tachycardia No murmur Abdomen distended soft Lower extremity trace edema No active chest pain Data 12/26/22 01:27 12/26/22 01:27 A&P Assessment and plan (1) Acute exacerbation of chronic obstructive airways disease: (2) Acute respiratory failure with hypoxia: (3) Smoking addiction: Plan Problem list acute COPD exacerbation Active smoker Tachycardia D-dimer high Chronic use of oxygen at home on 2 L at night Plan Acute COPD exacerbation Active wheezing Currently on 4 L Tachycardia Requested CTA to rule out PE Started therapeutic Lovenox IV steroids Patient will need outpatient pulmonary follow-up Currently smoking 3 cigarettes a day Patient also has digital clubbing To decrease work of breathing he may benefit from BiPAP Goals of care discussed with the patient: He does not want intubation or CPR/defibrillation Multifocal atrial tachycardia Start Cardizem low-dose, continue 4 L of oxygen for now Concern for right middle lobe pneumonia I will give him azithromycin, 1 dose of ceftriaxone, will follow up after CT results which would better delineate if there is any active consolidation Has pulmonary interstitial markings which could be related to underlying undiagnosed pulmonary hypertension versus interstitial fibrosis Patient is stating temperature 100 Fahrenheit at home Hypophosphatemia: Phosphorus repleted High BNP Trace signs of edema of lower extremities Requested echo Rule out PE Goals of care discussed with the patient he is DNI/DNI Cardiac diet DVT prophylaxis: With therapeutic Lovenox Smoking cessation counseling done at the time of admission, I did explain that if he continues to smoke he is at high risk for worsening of COPD to the point he might need comfort care if he starts losing weight and oxygen requirement worsens, Self interpretation of chest x-ray, EKG done by myself, Attestations Medical Necessity Statement*: More than 2 midnights anticipated Diagnoses Acute exacerbation of chronic obstructive airways disease J44.1 Acute respiratory failure with hypoxia J96.01 Smoking addiction F17.200
[2022-12-26 03:32] LABS: D Dimer 3.72 ug/mIFEU (0-0.59)
[2022-12-26] MEDS: enoxaparin 40 mg/0.4 mL Syringe SUBCUT ×2 (03:38→17:38)
[2022-12-26 03:53] LABS: Thyroid Stimulating Hormone 1.83 uIU/mL (0.27-4.20)
[2022-12-26 04:58] LABS: Basophils % 0.4 %; Eosinophils % 0.1 %; Hematocrit 48.4 % (42.0-52.0); Hemoglobin 15.6 g/dL (11.7-16.6); Lymphocytes # 1.5 10^3/uL (0.8-4.8); Lymphocytes % 13.4 %; Mean Corpuscular HGB Conc 32.2 g/dL (30.0-36.0); Mean Corpuscular Hemoglobin 28.4 pg (28.0-34.0); Mean Platelet Volume 9.5 fL (7.4-10.4); Monocytes # 0.1 10^3/uL (0.2-0.9); Neutrophils # 9.65 10^3/uL (1.8-7.7); Neutrophils % 84.7 %; Nucleated Red Blood Cells % 0 %; Platelet Count 280 10^3/cmm (130-400); Red Cell Distribution Width 12.5 % (12.1-15.1); White Blood Count 11.4 10^3/uL (4.0-10.0)
[2022-12-26 05:17] LABS: Anion Gap 17.9 (5-19); Blood Urea Nitrogen 10 mg/dL (8-23); C Reactive Protein 21.7 mg/L (0.0-4.9); Calcium 9.8 mg/dL (8.5-10.5); Carbon Dioxide 25 mmol/L (22-29); Chloride 100 mmol/L (98-107); Glomerular Filtration Rate 75.2 mL/min (90-130); Glucose 161 mg/dL (65-115); Osmolality Calculated 291 mOsm/kg (285-295); Phosphorus 1.9 mg/dL (2.5-4.5); Potassium 3.9 mmol/L (3.5-5.1); Sodium 139 mmol/L (136-145)
--- NOTE | 2022-12-26 06:14 | CTR_ITS ---
PROCEDURE INFORMATION: Exam: CTA Chest With Contrast Exam date and time: 12/26/2022 6:35 AM Age: 62 years old Clinical indication: Shortness of breath; Additional info: Hypoxia TECHNIQUE: Imaging protocol: Computed tomographic angiography of the chest with contrast. 3D rendering (Not supervised by radiologist): MIP and/or 3D reconstructed images were created by the technologist. Radiation optimization: All CT scans at this facility use at least one of these dose optimization techniques: automated exposure control; mA and/or kV adjustment per patient size (includes targeted exams where dose is matched to clinical indication); or iterative reconstruction. Contrast material: OMNI 350; Contrast volume: 100 ml; Contrast route: INTRAVENOUS (IV); REPORTING DATA: Count of CT and Cardiac NM exams in prior 12 months: This patient has received 0 known CTs and 0 known cardiac nuclear medicine studies in the 12 months prior to the current study. COMPARISON: CR (CHEST, ) 12/26/2022 1:41 AM RADIATION DOSE METRICS: Total DLP (mGy-cm): 500.27 FINDINGS: Pulmonary arteries: No evidence of pulmonary emboli. Aorta: See Other arteries finding. Other arteries: There is atherosclerotic vascular calcification. No aortic aneurysm. Lungs: There are several rounded pulmonary nodules. There is 10 mm slightly spiculated right central upper lobe, and 4.5 mm right middle lobe. There is slightly more elongated 6 mm right nodule along posterior aspect of major fissure at level of superior segment of lower lobe, There is also a more triangular nodular density with some adjacent linear density measuring approximally 10 mm in anterolateral lingula. There are emphysematous changes with pulmonary blebs and bulla most prominent in bilateral upper lobes. There is linear scarring in right lung base. Pleural spaces: See Lungs finding. Heart: Is nonenlarged. No pericardial effusion. There are left greater than right coronary artery calcifications. Lymph nodes: There are nonspecific bilateral mediastinal lymph nodes greatest in aortic or pulmonary window measuring approximally 0.9 cm short axis dimension and in subcarinal region of approximally seen short axis dimension with punctate calcification. Adrenal glands: There is slight thickening of bilateral adrenal glands. Kidneys and ureters: There several low-density renal lesions including 1.4 cm right upper lobe, 0.8 cm left upper lobe, 0.9 cm left upper lateral lesions. These may be cyst but the lateral 9 mm lesion shows slight peripheral density and consider follow-up ultrasound. Bones/joints: There is spondylosis. There is old left posterolateral 6 rib fracture. Soft tissues: Unremarkable. CT/CT angio chest PE protcl [id number] IMPRESSION: 1. No evidence of pulmonary emboli. 2. Pulmonary emphysematous changes. Several pulmonary nodules as described. Highly suspicious nodule(s). Consider non-emergent PET/CT, or tissue sampling.(Reference: Maikel) 3. No pulmonary consolidation to suggest pneumonia. 4. Low-density renal lesions and consider follow-up ultrasound if no prior studies to compare no previous definitive assessment. 5. Other findings as discussed. COMMENTS: 1. Consistent with the [employer]'s Incidental Findings Committee white paper (J Am Vero Radiol 2018): Any incidental renal lesion less than 1 cm or classified as too small to characterize, or any incidental cystic renal lesion characterized as simple-appearing, is likely benign. No follow-up imaging is recommended for these lesions per consensus recommendations based on imaging criteria. 2. In the absence of a history or active diagnosis of lung cancer, it is recommended that this patient with emphysema be evaluated for enrollment in a low dose CT lung cancer screening program. REFERENCES: Maikel Hendrix, et al. Guidelines for Management of Incidental Pulmonary Nodules Detected on CT Images: From the Fleischner Society 2017. Radiology. 2017;284(1):228-243.
[2022-12-26 06:15] LABS: Glucose Point of Care 172 mg/dL (70-110)
--- NOTE | 2022-12-26 06:28 | USCV_ITS ---
Gilberto Frantz Age: 62 Gender: M : 1960 Exam Date: 12/26/2022 15:38 Ordering Phys: Wilma Weber MD Technologist: Donnie Hendricks [place] [facility] [place]ication: chf BP: 145 / 82 HR: 97 Rhythm: Sinus Technical Quality: Adequate MEASUREMENTS (Male / Female) Normal Values 2D ECHO LV Diastolic Diameter PLAX 5.4 cm 4.2 - 5.9 / 3.9 - 5.3 cm LV Systolic Diameter PLAX 3.5 cm IVS Diastolic Thickness 1.2 cm 0.6 - 1.0 / 0.6 - 0.9 cm IVS Systolic Thickness 1.7 cm LVPW Diastolic Thickness 1.7 cm 0.6 - 1.0 / 0.6 - 0.9 cm LVPW Systolic Thickness 1.7 cm LVOT Diameter 2.0 cm LV Ejection Fraction 2D Teich 62.5 % LV Ejection Fraction MOD 2C 71.7 % LV Ejection Fraction 2C AL 71.0 % LA Diameter 4.1 cm IVC Diameter 1.6 cm M-MODE Aortic Annulus Diameter 3.3 cm LA Ao Ratio MM 1.4 MV E Point Septal Separation 1.8 cm DOPPLER AV Peak Velocity 280.3 cm/s LVOT Peak Velocity 107.0 cm/s AV Area Cont Eq vti 1.7 cm squared AV Area Cont Eq pk 1.2 cm squared MV Area PHT 5.6 cm squared Mitral E to A Ratio 3.0 MV E' Velocity 68.0 cm/s Mitral E to MV E' Ratio 8.5 Mitral E to LV E' Lateral Ratio 7.6 Mitral E to LV E' Septal Ratio 9.7 TR Peak Velocity 123.0 cm/s TR Peak Gradient 6.1 mmHg TV Peak E Velocity 94.0 cm/s Right Atrial Pressure 3.0 mmHg Pulmonary Artery Systolic Pressu 9.1 mmHg FINDINGS Left Ventricle Diffuse hypokinesia of the left ventricle. The left ventricular ejection fraction is around 45%. Mildly dilated LV cavity. Right Ventricle Normal right ventricular size and systolic function. Right Atrium The right atrium is normal in size. Left Atrium The left atrium is normal in size. Mitral Valve No gross abnormalities noted Aortic Valve Mild aortic valve stenosis, mean gradient 16.3 mmHg, MARIA ELENA 1.7 cm squared. Tricuspid Valve No gross abnormalities noted Pulmonic Valve Pulmonic valve not well visualized. Pericardium Normal pericardium without effusion. Aorta Normal ascending aorta dimension. IVC Inferior vena cava not visualized. CONCLUSIONS Diffuse hypokinesia of the lef ventricle with an ejection fraction of 45%(visual) Mildly dilated LV cavity. Mild aortic valve stenosis, mean gradient 16.3 mmHg, MARIA ELENA 1.7 cm squared. Possibly normal chamber sizes There are no intracardiac masses. Compared to the study from 07/01/2020, the ejection fraction appears to have decreased Revised copy of the report from 12/26/2022 Dr Demetrius Fong MD [facility] (Electronically Signed) Final Date: 26 December 2022 19:23 Amended: 27 December 2022 08:20 C
[2022-12-26] MEDS: iohexol 350 mg/mL 500 mL Btl (per mL) IV (06:43)
--- NOTE | 2022-12-26 07:20 | PC.NURSE ---
Bedside report given by Bettie DAVEY at this time.
--- NOTE | 2022-12-26 07:49 | US_ITS ---
WS: [id number] RENAL ULTRASOUND HISTORY: renal lesions COMPARISON: 12/26/2022 TECHNIQUE: 2-D and color Doppler imaging of the kidney submitted. Right kidney: 9.8 cm x 5.2 cm x 4.9 cm. Cortex: 1.3 cm Normal echogenicity with no hydronephrosis or mass. Left kidney: 8.9 cm x 4.4 cm x 5.6 cm. Cortex: 1.2 cm Normal echogenicity with no hydronephrosis or mass. Cortical cyst mid kidney with a maximum diameter of 10 mm. Cortical cyst superior pole maximum diameter 10 mm. Aorta: Normal. Urinary Bladder: Normal distention. US/US renal BI* [id number] IMPRESSION: 1. No solid mass or hydronephrosis is identified. No RIGHT renal cysts or mass identified. 2. 2 very small cortical cysts LEFT kidney.
[2022-12-26] MEDS: ipratropium-albuterol 3 mL Neb INHALATION ×4 (08:09→20:50)
[2022-12-26] MEDS: budesonide 0.5 mg/2 mL Neb INHALATION ×2 (08:09→20:50)
[2022-12-26] MEDS: FUROsemide 10 mg/mL SDV 2mL 20 MG IVP (08:15)
[2022-12-26] MEDS: cefTRIAXone 1,000 MG in sodium chloride 0.9% (plus) 50 ML 100 MG IV (08:15)
[2022-12-26] MEDS: sennosides-docusate Tablet 1 TAB PO (08:16)
[2022-12-26] MEDS: azithromycin 250 mg Tablet PO (08:16)
[2022-12-26] MEDS: lamoTRIgine 25 mg Tablet PO (08:16)
[2022-12-26] MEDS: aspirin 81 mg EC Tablet PO (08:16)
[2022-12-26] MEDS: dilTIAZem 30 mg Tablet PO (08:16)
[2022-12-26] MEDS: phosphorus 250 mg Tablet PO ×2 (08:16→17:38)
--- NOTE | 2022-12-26 10:32 | PC.CHAP ---
Pastoral Care Encounter/Spiritual Assessment Type of Contact [] Declined vice president visit [] Patient/Family/Request visit [] Outpatient visit [] Follow-up visit [] Physician referral [] Code/Alert [x] Routine visit [] Staff referral [] Actively dying [] Patient sleeping [x] Family support [] [] Out of room [] Palliative care [] [] Receiving care in room [] Pre-surgical visit [] Trauma [] Long length of stay [] ICU visit [] Other: Relational/Emotional Strength [x] Patient feels connected with others/family/visitors/staff [] Distress [] Loneliness/isolation [] Abandonment Spirituality of Patient [x] Person of Donna [] Attends Anglican of their Donna [x] Believes in Prayer [] Reads Bible or Buddhist materials [] There are Spiritual issues to be addressed Health Therapist Interventions [x] Prayer [] Active listening [] Non-anxious presence [] Spiritual/emotional support [] Crisis/trauma care [] Spiritual counseling [] Bereavement support [] Provided bereavement packet [] Provided Bible/devotional materials [] Provided toy/stuffed animal, coloring book to patient or family member [] Provided Communion [] Anointing/[place] [] Salvation [x] Completed spiritual assessment [] Other: Impact on Illness or Injury [] Angry [] Fearful [] Anxious [] Often cries [] Exhaustion [] Unable to work [] Unable to attend yazdanism [] Unable to walk/stand [] Unable to read [] Unable to drive [] Unable to eat/drink [] Unable to sleep [] Unable to be with family [] Patient intubated [] Other: Summary Time spent with patient 10 min
[2022-12-26 11:52] LABS: Glucose Point of Care 254 mg/dL (70-110)
[2022-12-26] MEDS: nicotine 21 mg Patch 1 PATCH TRANSDERMA (12:55)
--- NOTE | 2022-12-26 13:19 | PM.PN ---
Subjective Subjective: Patient reports smoking at home, he feels a bit better, still has wheezing Vitals/I&O/Wt Last Vital Signs Temp 97.9 F 12/26/22 11:30 Pulse 101 H 12/26/22 11:44 Resp 18 12/26/22 11:44 BP 118/71 12/26/22 11:30 Pulse Ox 95 12/26/22 11:44 O2 Del Method 12/26/22 11:44 O2 Flow Rate 3 12/26/22 11:44 12/25/22 12/26/22 12/26/22 22:59 06:59 14:59 Intake Total 120 / 120 240 / 240 Balance 120 / 120 240 / 240 Weight last 48 hrs Weight 96.729 kg Weight 99.79 kg Physical Exam Const: COMMON NORMALS: no acute distress and patient oriented x3 Resp: COMMON NORMALS: normal respiratory effort, No retractions and No use of accessory muscles AUSCULTATION: wheezes Cardio: COMMON NORMALS: regular rate, regular rhythm, S1 normal heart sound present and S2 normal heart sound present RATE: regular rate RHYTHM: regular rhythm HEART SOUNDS: S1 normal heart sound present and S2 normal heart sound present GI: COMMON NORMALS: Normal to inspection, nondistended, normoactive bowel sounds present and non-tender Extremity: COMMON NORMALS: no pedal edema Neuro: COMMON NORMALS: patient oriented x3 Psych: COMMON NORMALS: mental status grossly normal Data 12/26/22 04:40 12/26/22 04:40 Micro: Microbiology 12/26/22 06:20 Gram Stain - Final Sputum - Expectorated Sputum A&P Assessment and plan (1) Acute exacerbation of chronic obstructive airways disease: (2) Acute respiratory failure with hypoxia: (3) Smoking addiction: Plan Problem list acute COPD exacerbation Active smoker Tachycardia D-dimer high Chronic use of oxygen at home on 2 L at night Plan Acute COPD exacerbation Active wheezing Currently on 4 L Tachycardia IV steroids Continue azithromycin Patient will need outpatient pulmonary follow-up Currently smoking 3 cigarettes a day, start nicotine Patient also has digital clubbing To decrease work of breathing he may benefit from BiPAP Goals of care discussed with the patient: He does not want intubation or CPR/defibrillation Multifocal atrial tachycardia Monitor Hypophosphatemia: Phosphorus repleted High BNP Trace signs of edema of lower extremities Requested echo 1 dose of Lasix Has pulmonary nodules, will have patient follow-up with pulmonary Goals of care discussed with the patient he is DNI/DNI Cardiac diet DVT prophylaxis: Lovenox Smoking cessation counseling done at the time of admission, I did explain that if he continues to smoke he is at high risk for worsening of COPD to the point he might need comfort care if he starts losing weight and oxygen requirement worsens, Plan for today continue steroids, monitor respiratory status, 1 dose of Lasix Attestations Medical Necessity Statement*: Patient requires hospitalization for COPD exacerbation Coding Level of Care Code Acute Code for [facility] Diagnoses Acute exacerbation of chronic obstructive airways disease J44.1 Acute respiratory failure with hypoxia J96.01 Smoking addiction F17.200
[2022-12-26 16:44] LABS: Glucose Point of Care 143 mg/dL (70-110)
[2022-12-26] MEDS: atorvastatin 40 mg Tablet PO (20:30)
[2022-12-27] VITALS (11 sets, daily range): BP systolic 129–168; BP diastolic 64–78; PULSE 84–107; RESP 16–18; TEMP 36.3–37; O2SAT 92–96
[2022-12-27] MEDS: ipratropium-albuterol 3 mL Neb INHALATION ×5 (04:58→19:54)
[2022-12-27 05:08] LABS: Basophils % 0.1 %; Hematocrit 45.2 % (42.0-52.0); Hemoglobin 14.6 g/dL (11.7-16.6); Lymphocytes # 2.9 10^3/uL (0.8-4.8); Lymphocytes % 13.9 %; Mean Corpuscular HGB Conc 32.3 g/dL (30.0-36.0); Mean Corpuscular Hemoglobin 28.6 pg (28.0-34.0); Mean Corpuscular Volume 88.5 fl (80-94); Mean Platelet Volume 9.8 fL (7.4-10.4); Monocytes # 0.6 10^3/uL (0.2-0.9); Monocytes % 2.7 %; Neutrophils # 17.26 10^3/uL (1.8-7.7); Neutrophils % 82.4 %; Nucleated Red Blood Cells % 0 %; Platelet Count 288 10^3/cmm (130-400); Red Blood Count 5.11 10^6/uL (4.1-5.3); Red Cell Distribution Width 12.7 % (12.1-15.1); White Blood Count 20.9 10^3/uL (4.0-10.0)
[2022-12-27 05:33] LABS: Anion Gap 15.6 (5-19); Blood Urea Nitrogen 20 mg/dL (8-23); Calcium 9.4 mg/dL (8.5-10.5); Carbon Dioxide 29 mmol/L (22-29); Chloride 103 mmol/L (98-107); Glomerular Filtration Rate 75.2 mL/min (90-130); Glucose 159 mg/dL (65-115); Osmolality Calculated 302 mOsm/kg (285-295); Potassium 4.6 mmol/L (3.5-5.1); Sodium 143 mmol/L (136-145)
[2022-12-27] MEDS: budesonide 0.5 mg/2 mL Neb INHALATION ×2 (07:17→19:54)
[2022-12-27] MEDS: phosphorus 250 mg Tablet PO ×2 (08:43→18:35)
[2022-12-27] MEDS: azithromycin 250 mg Tablet PO (08:44)
[2022-12-27] MEDS: nicotine 21 mg Patch 1 PATCH TRANSDERMA (08:44)
[2022-12-27] MEDS: lamoTRIgine 25 mg Tablet PO (08:44)
[2022-12-27] MEDS: sennosides-docusate Tablet 1 TAB PO (08:44)
[2022-12-27] MEDS: aspirin 81 mg EC Tablet PO (08:44)
[2022-12-27] MEDS: metoprolol tartrate 25 mg Tablet 12.5 MG PO ×2 (08:45→20:19)
[2022-12-27 09:03] LABS: Troponin(5th) Baseline 25 ng/L (0-15)
--- NOTE | 2022-12-27 09:59 | ECG_ITS ---
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 Measurements Intervals [place] Rate: 88 P: 53 MD: 200 QRS: 72 QRSD: 123 T: 60 QT: 361 QTc: 437 Interpretive Statements SINUS RHYTHM PROBABLE INFERIOR MYOCARDIAL INFARCTION , PROBABLY OLD [35 ms Q WAVE IN II/aVF] MODERATE T-WAVE ABNORMALITY, CONSIDER LATERAL ISCHEMIA [-0.1+ mV T-WAVE IN I/aVL/V5/V6] Compared to ECG 12/26/2022 01:25:32 Myocardial infarct finding now present Possible ischemia now present Left posterior fascicular block no longer present T-wave abnormality still present Electronically Signed On 12-28-2022 2:23:55 CDT by Demetrius Fong M.D. [id number]
--- NOTE | 2022-12-27 10:20 | PC.CHAP ---
Pastoral Care Encounter/Spiritual Assessment Type of Contact [] Declined oil well logging engineer visit [] Patient/Family/Request visit [] Outpatient visit [] Follow-up visit [] Physician referral [] Code/Alert [x] Routine visit [] Staff referral [] Actively dying [] Patient sleeping [] Family support [] [] Out of room [] Palliative care [] [] Receiving care in room [] Pre-surgical visit [] Trauma [] Long length of stay [] ICU visit [] Other: Relational/Emotional Strength [x] Patient feels connected with others/family/visitors/staff [] Distress [] Loneliness/isolation [] Abandonment Spirituality of Patient [x] Person of Donna [] Attends Mandaen of their Donna [x] Believes in Prayer [] Reads Bible or Mormonism materials [] There are Spiritual issues to be addressed Event Marketing Intern Interventions [x] Prayer [x] Active listening [] Non-anxious presence [x] Spiritual/emotional support [] Crisis/trauma care [] Spiritual counseling [] Bereavement support [] Provided bereavement packet [] Provided Bible/devotional materials [] Provided toy/stuffed animal, coloring book to patient or family member [] Provided Communion [] Anointing/[place] [] Salvation [x] Completed spiritual assessment [] Other: Impact on Illness or Injury [] Angry [] Fearful [] Anxious [] Often cries [] Exhaustion [] Unable to work [] Unable to attend jewish [] Unable to walk/stand [] Unable to read [] Unable to drive [] Unable to eat/drink [] Unable to sleep [] Unable to be with family [] Patient intubated [] Other: Summary Time spent with patient 5 min
[2022-12-27 10:48] LABS: Troponin 5 2HR 22.23 ng/L (0-15)
[2022-12-27 10:50] LABS: Troponin 5 2HR Delta -2.77 ABS# (0-10)
--- NOTE | 2022-12-27 11:53 | P.PN_ITS ---
Subjective Subjective: patient was seen this morning, he states he is doing well, but continue to have wheezing Vitals/I&O/Wt Last Vital Signs Temp 97.6 F 12/27/22 08:12 Pulse 99 12/27/22 11:22 Resp 16 12/27/22 11:22 BP 133/77 12/27/22 08:12 Pulse Ox 96 12/27/22 11:22 O2 Del Method 12/27/22 11:22 O2 Flow Rate 1 12/27/22 11:22 12/26/22 12/27/22 12/27/22 22:59 06:59 14:59 Intake Total 170 / 410 120 / 530 240 / 240 Balance 170 / 410 120 / 530 240 / 240 Weight last 48 hrs Weight 96.729 kg Weight 99.79 kg Physical Exam Const: COMMON NORMALS: no acute distress and patient oriented x3 Resp: COMMON NORMALS: normal respiratory effort, No retractions and No use of accessory muscles AUSCULTATION: wheezes Cardio: COMMON NORMALS: regular rate, regular rhythm, S1 normal heart sound present and S2 normal heart sound present RATE: regular rate RHYTHM: regular rhythm HEART SOUNDS: S1 normal heart sound present and S2 normal heart sound present GI: COMMON NORMALS: Normal to inspection, nondistended, normoactive bowel sounds present and non-tender Extremity: COMMON NORMALS: no pedal edema Neuro: COMMON NORMALS: patient oriented x3 Psych: COMMON NORMALS: mental status grossly normal Data 12/27/22 04:32 12/27/22 04:32 Micro: Microbiology 12/26/22 03:45 MRSA Culture - Final Nose 12/26/22 06:20 Gram Stain - Final Sputum - Expectorated Sputum A&P Assessment and plan (1) Acute exacerbation of chronic obstructive airways disease: (2) Acute respiratory failure with hypoxia: (3) Smoking addiction: (4) CHF exacerbation: (5) NSTEMI (non-ST elevated myocardial infarction): (6) Mild aortic stenosis: Plan Problem list acute COPD exacerbation Active smoker Tachycardia D-dimer high Chronic use of oxygen at home on 2 L at night Plan Acute COPD exacerbation Active wheezing Currently on 4 L Tachycardia IV steroids Continue azithromycin Patient will need outpatient pulmonary follow-up Currently smoking 3 cigarettes a day, start nicotine Patient also has digital clubbing To decrease work of breathing he may benefit from BiPAP Goals of care discussed with the patient: He does not want intubation or CPR/defibrillation Multifocal atrial tachycardia Monitor systolic chf exacerbation - dose of lasix yesterday, one dose of iv lasix 20mg today NSTEMI Diffuse hypokinesia of the lef ventricle? with an ejection ?fraction of 45%(visual) ?Mildly dilated LV cavity. ?Mild aortic valve stenosis, mean gradient 16.3 mmHg, MARIA ELENA 1.7 ?cm squared. ?Possibly normal chamber sizes ?There are no intracardiac masses. ?Compared to the study from 07/01/2020, the ejection fraction ?appears to have decreased -serial ekg, serial troponin, telemetry monitoring -aspirin, atorvastatin, metoprolol Aortic stenosis Hypophosphatemia: Phosphorus repleated Has pulmonary nodules, will have patient follow-up with pulmonary Goals of care discussed with the patient he is DNI/DNI Cardiac diet DVT prophylaxis: Lovenox Smoking cessation counseling done at the time of admission, I did explain that if he continues to smoke he is at high risk for worsening of COPD to the point he might need comfort care if he starts losing weight and oxygen requirement worsens, Plan for today continue steroids, monitor respiratory status, 1 dose of Lasix,, add aspirin, statin, metoprolol Attestations Medical Necessity Statement*: patient requires hospitalization for copd, chf e xacerbation, requiring diuresis Coding Level of Care Code Acute Code for [facility] Diagnoses Acute exacerbation of chronic obstructive airways disease J44.1 Acute respiratory failure with hypoxia J96.01 Smoking addiction F17.200 CHF exacerbation I50.9 NSTEMI (non-ST elevated myocardial infarction) I21.4 Mild aortic stenosis I35.0
[2022-12-27] MEDS: FUROsemide 10 mg/mL SDV 2mL 20 MG IVP (12:04)
--- NOTE | 2022-12-27 13:59 | ECG_ITS ---
[facility] Test Date: 2022-12-27 Pat Name: Frantz Macias Department: Room: 259 Gender: Male Fisheries Director: : 1960 Requested By: Miguel Pearl Order Number: [id number] Ildefonso MD: Demetrius Fong M.D. Measurements Intervals [place] Rate: 93 P: 62 ME: 180 QRS: 71 QRSD: 115 T: 124 QT: 366 QTc: 457 Interpretive Statements SINUS RHYTHM PROBABLE INFERIOR MYOCARDIAL INFARCTION , OF INDETERMINATE AGE [35 ms Q WAVE IN II/aVF] MODERATE T-WAVE ABNORMALITY, CONSIDER LATERAL ISCHEMIA [-0.1+ mV T-WAVE IN I/aVL/V5/V6] Compared to ECG 12/27/2022 10:38:46 No significant changes Electronically Signed On 12-28-2022 2:24:22 CDT by Demetrius Fong M.D. [id number]
[2022-12-27 15:20] LABS: Troponin 5 6HR 26.78 ng/L (0-15); Troponin 5 6HR Delta 1.78 ng/L (0-12)
[2022-12-27] MEDS: enoxaparin 40 mg/0.4 mL Syringe SUBCUT (18:35)
[2022-12-27] MEDS: atorvastatin 40 mg Tablet PO (20:19)
[2022-12-28] VITALS (11 sets, daily range): BP systolic 127–151; BP diastolic 66–76; PULSE 78–92; RESP 16–18; TEMP 36.4–36.6; O2SAT 93–98
[2022-12-28 06:35] LABS: Basophils % 0.1 %; Hematocrit 44.5 % (42.0-52.0); Hemoglobin 14.8 g/dL (11.7-16.6); Lymphocytes # 2.8 10^3/uL (0.8-4.8); Lymphocytes % 11.3 %; Mean Corpuscular HGB Conc 33.3 g/dL (30.0-36.0); Mean Corpuscular Hemoglobin 28.8 pg (28.0-34.0); Mean Corpuscular Volume 86.6 fl (80-94); Mean Platelet Volume 10.1 fL (7.4-10.4); Monocytes # 0.5 10^3/uL (0.2-0.9); Monocytes % 2.2 %; Neutrophils # 20.98 10^3/uL (1.8-7.7); Neutrophils % 85.6 %; Nucleated Red Blood Cells % 0 %; Platelet Count 317 10^3/cmm (130-400); Red Blood Count 5.14 10^6/uL (4.1-5.3); Red Cell Distribution Width 12.8 % (12.1-15.1); White Blood Count 24.5 10^3/uL (4.0-10.0)
[2022-12-28 06:50] LABS: Blood Urea Nitrogen 27 mg/dL (8-23); Calcium 9.1 mg/dL (8.5-10.5); Carbon Dioxide 25 mmol/L (22-29); Chloride 100 mmol/L (98-107); Glomerular Filtration Rate 75.2 mL/min (90-130); Glucose 135 mg/dL (65-115); NT Pro B Type Natriuretic Pept 2377 pg/mL (0-125); Osmolality Calculated 287 mOsm/kg (285-295); Sodium 135 mmol/L (136-145)
--- NOTE | 2022-12-28 07:26 | PC.NURSE ---
See patient chart for written rounding during hours of downtime.
[2022-12-28] MEDS: budesonide 0.5 mg/2 mL Neb INHALATION ×2 (07:51→20:44)
[2022-12-28] MEDS: ipratropium-albuterol 3 mL Neb INHALATION ×4 (07:51→20:44)
[2022-12-28] MEDS: nicotine 21 mg Patch 1 PATCH TRANSDERMA (10:21)
[2022-12-28] MEDS: lamoTRIgine 25 mg Tablet PO (10:21)
[2022-12-28] MEDS: metoprolol tartrate 25 mg Tablet 12.5 MG PO ×2 (10:22→20:36)
[2022-12-28] MEDS: azithromycin 250 mg Tablet PO (10:23)
[2022-12-28] MEDS: aspirin 81 mg EC Tablet PO (10:23)
[2022-12-28] MEDS: FUROsemide 10 mg/mL SDV 4mL 40 MG IVP (10:24)
[2022-12-28] MEDS: sennosides-docusate Tablet 1 TAB PO (10:24)
--- NOTE | 2022-12-28 13:34 | PM.PN ---
Subjective Subjective: Patient was seen this morning, he tells me his shortness of breath has improved, no chest pain, no palpitations Vitals/I&O/Wt Last Vital Signs Temp 97.6 F 12/28/22 11:33 Pulse 84 12/28/22 11:49 Resp 18 12/28/22 11:49 BP 127/66 12/28/22 11:33 Pulse Ox 98 12/28/22 11:49 O2 Del Method Nasal Cannula 12/28/22 11:49 O2 Flow Rate 2 12/28/22 11:49 12/27/22 12/28/22 12/28/22 22:59 06:59 14:59 Intake Total 1060 / 1300 Balance 1060 / 1300 Physical Exam Const: COMMON NORMALS: no acute distress and patient oriented x3 Resp: COMMON NORMALS: normal respiratory effort, No retractions and No use of accessory muscles OTHER: Crackles in bilateral lung jo Cardio: COMMON NORMALS: regular rate, regular rhythm, S1 normal heart sound present and S2 normal heart sound present RATE: regular rate RHYTHM: regular rhythm HEART SOUNDS: S1 normal heart sound present and S2 normal heart sound present GI: COMMON NORMALS: Normal to inspection, nondistended, normoactive bowel sounds present and non-tender Extremity: COMMON NORMALS: no pedal edema Neuro: COMMON NORMALS: patient oriented x3 Psych: COMMON NORMALS: mental status grossly normal Data 12/28/22 05:43 12/28/22 05:43 Micro: Microbiology 12/26/22 06:20 Gram Stain - Final Sputum - Expectorated Sputum Sputum Culture - Preliminary Gram Negative Rods A&P Assessment and plan (1) Acute exacerbation of chronic obstructive airways disease: (2) Acute respiratory failure with hypoxia: (3) Smoking addiction: (4) CHF exacerbation: (5) NSTEMI (non-ST elevated myocardial infarction): (6) Mild aortic stenosis: (7) Decreased cardiac ejection fraction: (8) Left ventricular hypokinesis: (9) Aortic stenosis: Plan Problem list acute COPD exacerbation Active smoker Tachycardia D-dimer high Chronic use of oxygen at home on 2 L at night Plan Acute COPD exacerbation Active wheezing Currently on 2 L IV steroids Continue azithromycin Patient will need outpatient pulmonary follow-up Currently smoking 3 cigarettes a day, start nicotine Patient also has digital clubbing To decrease work of breathing he may benefit from BiPAP Goals of care discussed with the patient: He does not want intubation or CPR/defibrillation Multifocal atrial tachycardia Monitor systolic chf exacerbation, with diminished ejection fraction -Fluid restrictions - dose of lasix yesterday, one dose of iv lasix 40 mg today NSTEMI Diffuse hypokinesia of the lef ventricle? with an ejection ?fraction of 45%(visual) ?Mildly dilated LV cavity. ?Mild aortic valve stenosis, mean gradient 16.3 mmHg, MARIA ELENA 1.7 ?cm squared. ?Possibly normal chamber sizes ?There are no intracardiac masses. ?Compared to the study from 07/01/2020, the ejection fraction ?appears to have decreased -serial ekg, serial troponin, telemetry monitoring -aspirin, atorvastatin, metoprolol -N.p.o. midnight -Cardiac stress test tomorrow morning Aortic stenosis Hypophosphatemia: Phosphorus repleated Has pulmonary nodules, will have patient follow-up with pulmonary Goals of care discussed with the patient he is DNI/DNI Cardiac diet DVT prophylaxis: Lovenox Smoking cessation counseling done at the time of admission, I did explain that if he continues to smoke he is at high risk for worsening of COPD to the point he might need comfort care if he starts losing weight and oxygen requirement worsens, Plan for today continue steroids, monitor respiratory status, 1 dose of Lasix,, n.p.o. neck, cardiac stress test tomorrow morning for diminished ejection fraction, NSTEMI Attestations Medical Necessity Statement*: Patient requires hospitalization for NSTEMI, proceeding with stress testing tomorrow, COPD Diagnoses Acute exacerbation of chronic obstructive airways disease J44.1 Acute respiratory failure with hypoxia J96.01 Smoking addiction F17.200 CHF exacerbation I50.9 NSTEMI (non-ST elevated myocardial infarction) I21.4 Mild aortic stenosis I35.0 Decreased cardiac ejection fraction R93.1 Left ventricular hypokinesis I51.89 Aortic stenosis I35.0
[2022-12-28] MEDS: enoxaparin 40 mg/0.4 mL Syringe SUBCUT (18:05)
[2022-12-28] MEDS: atorvastatin 40 mg Tablet PO (20:37)
[2022-12-29] VITALS (9 sets, daily range): BP systolic 125–162; BP diastolic 70–86; PULSE 72–96; RESP 16–20; TEMP 36.4–36.5; O2SAT 85–99
--- NOTE | 2022-12-29 | ECG_ITS ---
[facility] Test Date: 2022-12-29 Pat Name: Frantz Macias Department: Room: 259 Gender: Male Telesales Manager: Geetha Salazar : 1960 Requested By: Miguel Pearl Order Number: [id number] Ildefonso MD: Demetrius Fong M.D. Interpretive Statements NAME OF STUDY: LEXISCAN SESTAMIBI STRESS TEST INDICATION: Shortness of Breath, PROCEDURE: At the baseline, the EKG revealed normal sinus rhythm with some nonspecific ST-T changes. Small Q waves in the inferior leads. The baseline heart was 90bpm with a blood pressue of 159/86 mm of Hg Lexiscan was infused over a period of 20 seconds. A total of 0.4 milligrams of Lexiscan was infused. The stress phase was continued for a total of 5 minutes. Heart rate at the end of the stress phase was 99 bpm with a blood pressure 163/88 mm of Hg. The EKG at the peak infusion revealed no significant changes. Sestamibi was injected 20 seconds after the Lexiscan infusion. Heart rate at the end of the recovery phase was 96 bpm with a blood pressure of 162/86 mm of Hg. CONCLUSION: 1. No significant EKG changes with the LexiScan infusion 2. No LexiScan induced chest pain or cardiac arrhythmia 3. Normal blood pressure and heart rate response 4. Sestamibi/sestamibi perfusion scan pending; see separate report. Electronically Signed On 01-01-2023 17:08:41 CDT by Demetrius Fong M.D. [id number]
[2022-12-29 05:34] LABS: Basophils % 0.1 %; Hematocrit 43.2 % (42.0-52.0); Hemoglobin 14.1 g/dL (11.7-16.6); Lymphocytes # 2.5 10^3/uL (0.8-4.8); Lymphocytes % 14.1 %; Mean Corpuscular HGB Conc 32.6 g/dL (30.0-36.0); Mean Corpuscular Hemoglobin 28.5 pg (28.0-34.0); Mean Corpuscular Volume 87.4 fl (80-94); Mean Platelet Volume 9.9 fL (7.4-10.4); Monocytes # 0.4 10^3/uL (0.2-0.9); Monocytes % 2.2 %; Neutrophils # 14.68 10^3/uL (1.8-7.7); Neutrophils % 83.1 %; Nucleated Red Blood Cells % 0 %; Platelet Count 272 10^3/cmm (130-400); Red Blood Count 4.94 10^6/uL (4.1-5.3); Red Cell Distribution Width 12.8 % (12.1-15.1); White Blood Count 17.7 10^3/uL (4.0-10.0)
[2022-12-29 06:02] LABS: Anion Gap 13.1 (5-19); Blood Urea Nitrogen 32 mg/dL (8-23); Carbon Dioxide 30 mmol/L (22-29); Chloride 99 mmol/L (98-107); Glomerular Filtration Rate 67.4 mL/min (90-130); Glucose 140 mg/dL (65-115); NT Pro B Type Natriuretic Pept 2584 pg/mL (0-125); Osmolality Calculated 293 mOsm/kg (285-295); Potassium 5.1 mmol/L (3.5-5.1); Sodium 137 mmol/L (136-145)
[2022-12-29] MEDS: regadenoson 0.4 Mg/5 ml Syringe IVP (07:48)
[2022-12-29] MEDS: ondansetron 2 mg/ML SDV 2 mL 4 MG IVP (07:51)
--- NOTE | 2022-12-29 08:00 | NMCV_ITS ---
NM elena perf SPECT r/s* [id number] Frantz Macias Age: 62 Gender: M : 1960 Exam Date: 12/29/2022 06:43 Ordering Phys: Miguel Pearl MD Technologist: RADHA Hauser Exam Location: [facility] Indications: CHEST PAIN STRESS TEST Please see separate stress test report in [facility] for full findings IMAGE PROTOCOL Rest/Stress 1 Lexiscan Day Radiopharmaceutical Dose (mCi) Administration Site Administered by Rest: Tc-99m 10.8 IV RADHA Walker Sestamibi Stress:Tc-99m 32.6 IV RADHA Walker Sestamibi Rest: 29-Dec-2022 60 Discovery 630 Stress: 29-Dec-2022 30 Discovery 630 0.4mg Lexiscan. Images obtained in supine and prone position. SPECT RESULTS Technical Quality: Excellent Raw Data Analysis: Normal Image Corrections: No attenuation or motion correction applied Summed Stress Score: 23 Summed Rest Score: 19 Summed Difference Score: 6 PERFUSION FINDINGS Moderate to large area of moderate to severely decreased vision uptake involving the inferior, inferoseptal, mid inferolateral and apical segments. Some reversibility was noted, mostly in the inferior and inferoseptal regions. Sublingual reversibility was noted in the inferolateral and apical regions. FUNCTIONAL RESULTS (calculated via Gated SPECT) Stress Image LV EF (%): 29 Stress EDV (mL):228 TID: 1.18 Stress ESV (mL):163 FUNCTIONAL FINDINGS: Segmental wall motion analysis revealing severe diffuse hypokinesia of the septum, LV apex, mid and apical anterior wall regions. The transient ischemic dilatation ratio was slightly elevated to 1.18 IMPRESSIONS 1. Myocardial perfusion imaging revealing moderate to large area of moderately to severely decreased tracer uptake involving the inferior, inferoseptal, inferolateral and apical regions with some reversibility, suggesting myocardial scarring with ischemia mostly in the distribution of the right coronary artery and circumflex artery with some ischemia, mostly in the distribution of the right coronary artery. 2. Diminished LV ejection fraction 29%. 3. Wall motion normalities as mentioned above. 4. Moderately dilated LV cavity, with end-systolic volume of 163 mm. No similar previous studies are available for comparison Dr Demetrius Fong MD [facility] (Electronically Signed) Final Date: 29 December 2022 12:59 S
[2022-12-29] MEDS: sennosides-docusate Tablet 1 TAB PO (09:36)
[2022-12-29] MEDS: amoxicillin-clav 875-125 mg Tablet 1 TAB PO (09:36)
[2022-12-29] MEDS: nicotine 21 mg Patch 1 PATCH TRANSDERMA (09:36)
[2022-12-29] MEDS: metoprolol tartrate 25 mg Tablet 12.5 MG PO (09:36)
[2022-12-29] MEDS: lamoTRIgine 25 mg Tablet PO (09:37)
[2022-12-29] MEDS: predniSONE 20 mg Tablet 40 MG PO (09:37)
[2022-12-29] MEDS: azithromycin 250 mg Tablet PO (09:37)
[2022-12-29] MEDS: FUROsemide 10 mg/mL SDV 4mL 40 MG IVP (09:37)
[2022-12-29] MEDS: aspirin 81 mg EC Tablet PO (09:37)
--- NOTE | 2022-12-29 11:08 | PC.SOCIAL ---
IMM UPDATED IMM dated and initialed, copy given to patient and copy placed in chart.
[2022-12-29] MEDS: ipratropium-albuterol 3 mL Neb INHALATION ×2 (11:19→15:06)
--- NOTE | 2022-12-29 12:17 | PC.CHAP ---
Pastoral Care Encounter/Spiritual Assessment Type of Contact [x] Declined safety advisor visit [] Patient/Family/Request visit [] Outpatient visit [] Follow-up visit [] Physician referral [] Code/Alert [x] Routine visit [] Staff referral [] Actively dying [] Patient sleeping [] Family support [] [] Out of room [] Palliative care [] [x] Receiving care in room [] Pre-surgical visit [] Trauma [] Long length of stay [] ICU visit [] Other: Relational/Emotional Strength [x] Patient feels connected with others/family/visitors/staff [] Distress [] Loneliness/isolation [] Abandonment Spirituality of Patient [x] Person of Donna [] Attends Amish of their Donna [] Believes in Prayer [] Reads Bible or Restoration materials [] There are Spiritual issues to be addressed Color Expert Interventions [] Prayer [] Active listening [] Non-anxious presence [] Spiritual/emotional support [] Crisis/trauma care [x] Spiritual counseling [] Bereavement support [] Provided bereavement packet [] Provided Bible/devotional materials [] Provided toy/stuffed animal, coloring book to patient or family member [] Provided Communion [] Anointing/[place] [] Salvation [] Completed spiritual assessment [] Other: Impact on Illness or Injury [] Angry [] Fearful [] Anxious [] Often cries [] Exhaustion [] Unable to work [] Unable to attend restorationist [] Unable to walk/stand [] Unable to read [] Unable to drive [] Unable to eat/drink [] Unable to sleep [] Unable to be with family [] Patient intubated [] Other: Summary Declined safety advisor visit Time spent with patient 5 mins
--- NOTE | 2022-12-29 13:39 | PM.DCS ---
Discharge Providers Date of Admission: 12/26/22 02:30 Date of Discharge: December 29, 2022 Attending Provider at Admission: Wilma Weber MD Attending Provider at Discharge: Miguel Pearl MD Primary Care Provider: ROSENDO Lazo Diagnoses at Discharge Discharge Diagnosis (1) Acute exacerbation of chronic obstructive airways disease: Status: Acute (2) Acute respiratory failure with hypoxia: Status: Acute (3) Smoking addiction: Status: Acute (4) CHF exacerbation: Status: Acute (5) NSTEMI (non-ST elevated myocardial infarction): Status: Acute (6) Mild aortic stenosis: Status: Acute (7) Decreased cardiac ejection fraction: Status: Acute (8) Left ventricular hypokinesis: Status: Acute (9) Aortic stenosis: Status: Acute Reason for Visit Reason for Visit: COPD, SOB Hospital Course Hospital Course Frantz Macias is a 62 year old male who carries history of COPD, uses oxygen about 2 L only at night, active smoker, presented with chief complaint of shortness of breath.? Patient is stating that for last 3 to 4 days he has been experiencing productive cough, shortness of breath and audible wheezing.? He noticed temperature around 100 Fahrenheit at home, he has not noticed any vomiting but endorsing nausea.? He has not noticed any diarrhea.? He is denying chest pain.? Patient is stating that sometimes he feels blurring of his heart he does not carry any history of atrial flutter or atrial fibrillation.? Does not take any anticoagulating agent.? He has been smoking since his teenage years.? He was smoking 1 pack/day now he has cut back to 3 cigarettes because of worsening of shortness of breath. In the ER he was diagnosed with COPD exacerbation and active wheezing he was given albuterol and hydralazine for hypertension and wheezing. I requested D-dimer which came back high, requesting CTA chest to rule out PE Patient was admitted to [facility] for acute COPD exacerbation, received steroid therapy, antibiotic therapy, oxygen therapy, clinically monitored. Patient overall clinically improved, sputum cultures so far showing gram-negative rods, discharged on a prednisone burst, with Augmentin therapy with close follow-up with primary care provider as outpatient Patient had evidence of CHF exacerbation during his hospitalization, improving with diuretic therapy Echocardiogram showed an EF of 45%, diffuse hypokinesis of the left ventricle, no chest pain complaints,. Stress test ?1.? Myocardial perfusion imaging revealing moderate to large area of moderately ?to severely decreased tracer uptake involving the inferior, inferoseptal, ?inferolateral and apical regions with some reversibility, suggesting myocardial ?scarring with ischemia mostly in the distribution of the right coronary artery ?and circumflex artery with some ischemia, mostly in the distribution of the ?right coronary artery. ?2.? Diminished LV ejection fraction 29%. ?3.? Wall motion normalities as mentioned above. ?4.? Moderately dilated LV cavity, with end-systolic volume of 163 mm. ?No similar previous studies are available for comparison Spoke to cardiology, as he has no active chest pain, we will medically manage and have him follow-up with cardiology as outpatient -Continue aspirin, statin, beta-clotilde, with a close follow-up with cardiology as outpatient -If any chest pain go to the emergency room Physical Exam Const: COMMON NORMALS: no acute distress and patient oriented x3 Resp: COMMON NORMALS: normal respiratory effort, No retractions, No use of accessory muscles and clear to auscultation bilaterally AUSCULTATION: clear to auscultation bilaterally Cardio: COMMON NORMALS: regular rate, regular rhythm, S1 normal heart sound present and S2 normal heart sound present RATE: regular rate RHYTHM: regular rhythm HEART SOUNDS: S1 normal heart sound present and S2 normal heart sound present GI: COMMON NORMALS: Normal to inspection, nondistended, normoactive bowel sounds present and non-tender Extremity: COMMON NORMALS: no pedal edema Neuro: COMMON NORMALS: patient oriented x3 Psych: COMMON NORMALS: mental status grossly normal Discharge Data Studies Completed and Pending Completed Studies During Hospitalization Category Date Time Status CTA PE [CT angio chest PE protcl [id number]] Stat Cat Scan 12/26/22 06:14 Completed Sestamibi Stress Test Request Routine Exams 12/29/22 06:51 Draft XR chest 1V portable [id number] Stat Exams 12/26/22 01:30 Completed NM elena perf SPECT r/s* [id number] Routine Nuc Med 12/29/22 08:00 Completed CV. echo complete* [id number] Routine Ultrasound 12/26/22 06:28 Completed US renal BI* [id number] Routine Ultrasound 12/26/22 07:49 Completed Pending at discharge Category Date Time Status Sestamibi Stress Test Request Routine Exams 12/28/22 12:03 Stop Req Basic Metabolic Panel AM LABS Lab 12/30/22 04:00 Ordered Complete Blood Count w/Auto AM LABS Lab 12/30/22 04:00 Ordered NT Pro B Type Natriuretic Pept QAM Lab 12/30/22 06:00 Ordered Sputum Culture and Gram Stain Stat Lab 12/26/22 06:20 Results Radiology Impressions Chest X-Ray 12/26/22 01:30 IMPRESSION: Negative for focal acute pulmonary disease. Chest CTA 12/26/22 06:14 IMPRESSION: 1. No evidence of pulmonary emboli. 2. Pulmonary emphysematous changes. Several pulmonary nodules as described. Highly suspicious nodule(s). Consider non-emergent PET/CT, or tissue sampling.(Reference: Maikel) 3. No pulmonary consolidation to suggest pneumonia. 4. Low-density renal lesions and consider follow-up ultrasound if no prior studies to compare no previous definitive assessment. 5. Other findings as discussed. COMMENTS: 1. Consistent with the [employer]'s Incidental Findings Committee white paper (J Am Vero Radiol 2018): Any incidental renal lesion less than 1 cm or classified as too small to characterize, or any incidental cystic renal lesion characterized as simple-appearing, is likely benign. No follow-up imaging is recommended for these lesions per consensus recommendations based on imaging criteria. 2. In the absence of a history or active diagnosis of lung cancer, it is recommended that this patient with emphysema be evaluated for enrollment in a low dose CT lung cancer screening program. REFERENCES: Maikel Hendrix, et al. Guidelines for Management of Incidental Pulmonary Nodules Detected on CT Images: From the Fleischner Society 2017. Radiology. 2017;284(1):228-243. Renal Ultrasound 12/26/22 07:49 IMPRESSION: 1. No solid mass or hydronephrosis is identified. No RIGHT renal cysts or mass identified. 2. 2 very small cortical cysts LEFT kidney. Laboratory Results WBC 17.7 10^3/uL (4.0-10.0) H 12/29/22 05:17 RBC 4.94 10^6/uL (4.1-5.3) 12/29/22 05:17 Hgb 14.1 g/dL (11.7-16.6) 12/29/22 05:17 Hct 43.2 % (42.0-52.0) 12/29/22 05:17 MCV 87.4 fl (80-94) 12/29/22 05:17 MCH 28.5 pg (28.0-34.0) 12/29/22 05:17 MCHC 32.6 g/dL (30.0-36.0) 12/29/22 05:17 RDW 12.8 % (12.1-15.1) 12/29/22 05:17 Plt Count 272 10^3/cmm (130-400) 12/29/22 05:17 MPV 9.9 fL (7.4-10.4) 12/29/22 05:17 Neut % (Auto) 83.1 % 12/29/22 05:17 Lymph % (Auto) 14.1 % 12/29/22 05:17 [place] % (Auto) 2.2 % 12/29/22 05:17 Eos % (Auto) 0.0 % 12/29/22 05:17 Baso % (Auto) 0.1 % 12/29/22 05:17 Neut # (Auto) 14.68 10^3/uL (1.8-7.7) H 12/29/22 05:17 Lymph # (Auto) 2.5 10^3/uL (0.8-4.8) 12/29/22 05:17 [place] # (Auto) 0.4 10^3/uL (0.2-0.9) 12/29/22 05:17 Eos # (Auto) 0.0 10^3/uL (0.0-0.8) 12/29/22 05:17 Baso # (Auto) 0.0 10^3/uL (0.0-0.1) 12/29/22 05:17 Nucleated RBC % (auto) 0 % 12/29/22 05:17 Nucleated RBCs # 0.0 /100WBC 12/29/22 05:17 PT 13.50 SECONDS (12.1-14.9) 12/26/22 01:27 INR 1.00 (0.8-1.2) 12/26/22 01:27 D-Dimer 3.72 ug/mIFEU (0-0.59) H 12/26/22 01:27 Specimen Type Arterial 12/26/22 01:55 Sample Site Radial, left 12/26/22 01:55 ABG pH 7.45 (7.35-7.45) 12/26/22 01:55 ABG pCO2 41.7 mmHg (35-45) 12/26/22 01:55 ABG pO2 82.3 mmHg (80.0-100.0) 12/26/22 01:55 ABG HCO3 28.8 mmol/L (22-26) H 12/26/22 01:55 ABG Base Excess 4.3 mmol/L (-2.0-2.0) H 12/26/22 01:55 Jerry Test Pos 12/26/22 01:55 Hematocrit 49.0 % (42-52) 12/26/22 01:55 Hgb O2 Saturation 95.6 % (95-100) 12/26/22 01:55 Carboxyhemoglobin 1.5 %THgb (0.4-20.1) 12/26/22 01:55 Methemoglobin 0.5 % (0.4-1.5) 12/26/22 01:55 Total Hemoglobin 16.0 g/dL (14-18) 12/26/22 01:55 O2 Delivery Device Nc 12/26/22 01:55 O2 Liters/Min 3.0 % 12/26/22 01:55 Freelance Digital Project Manager ID [email or web address] 12/26/22 01:55 Sodium 137 mmol/L (136-145) 12/29/22 05:17 Potassium 5.1 mmol/L (3.5-5.1) 12/29/22 05:17 Chloride 99 mmol/L (98-107) 12/29/22 05:17 Carbon Dioxide 30 mmol/L (22-29) H 12/29/22 05:17 Anion Gap 13.1 (5-19) 12/29/22 05:17 BUN 32 mg/dL (8-23) H 12/29/22 05:17 Creatinine 1.1 mg/dL (0.7-1.2) 12/29/22 05:17 GFR Calculation 67.4 mL/min (90-130) L 12/29/22 05:17 Glucose 140 mg/dL (65-115) H 12/29/22 05:17 POC Glucose 143 mg/dL (70-110) H 12/26/22 16:31 Calculated Osmolality 293 mOsm/kg (285-295) 12/29/22 05:17 Calcium 9.0 mg/dL (8.5-10.5) 12/29/22 05:17 Phosphorus 1.9 mg/dL (2.5-4.5) L 12/26/22 04:40 Magnesium 2.0 mg/dL (1.7-2.3) 12/26/22 04:40 Total Bilirubin 0.4 mg/dL (0.15-1.2) 12/26/22 01:27 AST 19 U/L (0-40) 12/26/22 01:27 ALT 17 U/L (0-41) 12/26/22 01:27 Alkaline Phosphatase 87 U/L (40-130) 12/26/22 01:27 Troponin T Baseline 25 ng/L (0-15) H 12/27/22 08:36 Troponin T 120 Minute 22.23 ng/L (0-15) H 12/27/22 10:20 Delta Troponin T -2.77 ABS# (0-10) L 12/27/22 10:20 Troponin T Hi Sens 6Hr 26.78 ng/L (0-15) H 12/27/22 14:58 Troponin T Hi Sens 6Hr Delta 1.78 ng/L (0-12) 12/27/22 14:58 C-Reactive Protein 21.7 mg/L (0.0-4.9) H 12/26/22 04:40 NT-Pro-B Natriuret Pep 2584 pg/mL (0-125) H 12/29/22 05:17 Total Protein 8.2 g/dL (6.6-8.7) 12/26/22 01:27 Albumin 3.9 g/dL (3.5-5.2) 12/26/22 01:27 Globulin 4.3 g/dL (1.3-4.6) 12/26/22 01:27 TSH 1.83 uIU/mL (0.27-4.20) 12/26/22 01:27 Influenza Type A Ag negative (Negative) 12/26/22 01:34 Influenza Type B Ag negative (Negative) 12/26/22 01:34 SARS-CoV-2 Ag (Rapid) negative (Negative) 12/26/22 01:34 Vitals Last Vital Signs Temp 97.5 F L 12/29/22 09:34 Pulse 92 12/29/22 11:28 Resp 18 12/29/22 11:20 BP 137/70 12/29/22 09:34 Pulse Ox 93 12/29/22 11:37 O2 Del Method Nasal Cannula 12/29/22 11:20 O2 Flow Rate 3 12/29/22 11:37 Discharge Plan Discharge Patient Disposition: Home Condition: Stable Prescriptions: New nitroglycerin 0.4 mg Tablet, Sublingual 0.4 mg sublingual Q5M PRN (Reason: Chest Pain) 30 Days Qty: 30 0RF prednisone 20 mg Tablet 40 mg PO DAILY 5 Days Qty: 10 0RF albuterol sulfate 90 mcg/actuation HFA aerosol inhaler 1 inh inhalation Q6H PRN (Reason: shortness of breath or wheezing) Qty: 8.5 0RF aspirin 81 mg Tablet,Delayed Release (Dr/Ec) 81 mg PO DAILY 30 Days Qty: 30 0RF atorvastatin 40 mg Tablet 40 mg PO BEDTIME 30 Days Qty: 30 0RF nicotine 21 mg/24 hr Patch 24 Hour 1 patch transdermal DAILY 28 Days Qty: 28 0RF metoprolol tartrate 25 mg Tablet 12.5 mg PO Q12H 30 Days Qty: 30 0RF amoxicillin-pot clavulanate 875-125 mg Tablet 1 tab PO BID 5 Days Qty: 10 0RF Continued budesonide 0.5 mg/2 mL suspension for nebulization 1 mg inhalation DAILY 30 Days Qty: 60 0RF oxygen 2 l nasal DIRECTED 365 Days Qty: 1 0RF Rx Instructions: Should use oxygen 24/7 lamotrigine 25 mg tablet See Rx Instructions .ROUTE .COMPLEX Qty: 30 0RF Dose Instruction: Take 1 tablet by mouth once daily for 30 days Rx Instructions: Take 1 tablet by mouth once daily for 30 days Trelegy Ellipta 200-62.5-25 mcg blister with device 1 inh inhalation DAILY 30 Days Qty: 60 1RF Discontinued rosuvastatin 20 mg tablet See Rx Instructions .ROUTE .COMPLEX Qty: 90 0RF Dose Instruction: Take 1 tablet by mouth once daily Rx Instructions: Take 1 tablet by mouth once daily Discharge Orders: Discharge Order (Routine); Ordered 12/29/22 Ordered By: Miguel Pearl Referrals: Tian Pop MD [Physician] - 2 weeks Demetrius Fong MD [Physician] - 2 weeks Tracy Keys FNP [Primary Care Provider] - 01/04/23 11:00 am Discharge Diet: Cardiac Discharge Activity: Resume usual activity Patient Instructions: Opioid Safety Activity Restrictions/Additional Instructions: - If you have any chest pain, Please go to the emergency room -Take aspirin, statin, metoprolol as prescribed -Nitro as needed for chest pain -Please quit smoking -Take steroids, and antibiotics as prescribed -See your primary care provider 1 week Discharge Attestations Time Spent in Discharge Care*: greater than 30 min Quality Metrics Clinical Quality Measures [ No reported AMI, CVA or VTE this stay] Coding Level of Care Code 48765 Total time (in minutes) for Discharge: 40 Diagnoses Acute exacerbation of chronic obstructive airways disease J44.1 Acute respiratory failure with hypoxia J96.01 Smoking addiction F17.200 CHF exacerbation I50.9 NSTEMI (non-ST elevated myocardial infarction) I21.4 Mild aortic stenosis I35.0 Decreased cardiac ejection fraction R93.1 Left ventricular hypokinesis I51.89 Aortic stenosis I35.0
== END 2022-12-29 15:50 | disposition home health service (06) | DRG 190 ==
LOC: ER 02:19 → MEDSURG 02:30
PROVIDERS: Admitting Provider Internal Medicine; Emergency Provider Emergency Medicine; PCP Registered Nurse; Visit Provider Family Medicine
DX: J44.1 Chronic obstructive pulmonary disease with (acute) exacerbation (principal); I21.4 Non-ST elevation (NSTEMI) myocardial infarction; I50.23 Acute on chronic systolic (congestive) heart failure; J96.01 Acute respiratory failure with hypoxia; I47.1 Supraventricular tachycardia; F17.210 Nicotine dependence, cigarettes, uncomplicated; G40.909 Epilepsy, unspecified, not intractable, without status epilepticus; I73.9 Peripheral vascular disease, unspecified; R79.1 Abnormal coagulation profile; E83.39 Other disorders of phosphorus metabolism; I35.0 Nonrheumatic aortic (valve) stenosis; R91.8 Other nonspecific abnormal finding of lung field; Z66 Do not resuscitate; Z86.73 Personal history of transient ischemic attack (TIA), and cerebral infarction without residual deficits; Z99.81 Dependence on supplemental oxygen
CPT/HCPCS: 36415; 36416; 36600; 71045; 71275; 76770; 78452; 80048; 80053; 82805; 82962; 83735; 83880; 84100; 84443; 84484; 85025; 85378; 85610; 86140; 87070; 87077; 87186; 87205; 87426; 87641; 87804; 93005; 93017; 93306; 94640; 94760; 96372; 96374; 96375; 99285; A9500; J0360; J0696; J1650; J1940; J2405; J2785; J2920; J7512; J7613; J7626; Q0144; Q3014; Q9967

== ENCOUNTER → 2023-01-09 11:28 | Outpatient (BNVA) | payer MEDICARE, MEDICAID, SELFPAY | PROVIDERS: PCP Registered Nurse; Visit Provider Internal Medicine Pulmonary Disease | DX: J44.9 Chronic obstructive pulmonary disease, unspecified (principal); R91.8 Other nonspecific abnormal finding of lung field; I51.89 Other ill-defined heart diseases; Z87.891 Personal history of nicotine dependence; Z99.81 Dependence on supplemental oxygen | CPT/HCPCS: 99204 ==

== ENCOUNTER → 2023-01-18 10:48 | Outpatient (BNVA) | payer MEDICARE, MEDICAID, SELFPAY | PROVIDERS: PCP Registered Nurse; Visit Provider Internal Medicine Cardiovascular Disease | DX: R94.39 Abnormal result of other cardiovascular function study (principal); I73.9 Peripheral vascular disease, unspecified; I50.22 Chronic systolic (congestive) heart failure; I35.0 Nonrheumatic aortic (valve) stenosis; I42.9 Cardiomyopathy, unspecified; E78.5 Hyperlipidemia, unspecified; J44.1 Chronic obstructive pulmonary disease with (acute) exacerbation; F17.210 Nicotine dependence, cigarettes, uncomplicated | CPT/HCPCS: 99205 ==

== ENCOUNTER 2023-01-19 06:30 | Outpatient (CLI) | payer MEDICARE, MEDICAID, SELFPAY ==
[2023-01-19 07:20] VITALS: PULSE 71; RESP 18; O2SAT 98
[2023-01-19] MEDS: albuterol 2.5 mg/3 mL Neb INHALATION (07:20)
[2023-01-19 07:25] VITALS: PULSE 74
[2023-01-19 07:42] VITALS: BP 152/80
== END 2023-01-19 06:31 | disposition home or self-care (01) ==
PROVIDERS: PCP Registered Nurse; Visit Provider Internal Medicine Pulmonary Disease
DX: R91.8 Other nonspecific abnormal finding of lung field (principal); J44.9 Chronic obstructive pulmonary disease, unspecified; F17.200 Nicotine dependence, unspecified, uncomplicated
CPT/HCPCS: 94060; 94618; 94726; 94729; 99204; J7613

== ENCOUNTER 2023-02-07 06:42 | Outpatient (CLI) | payer MEDICARE, MEDICAID, SELFPAY ==
[2023-02-07] VITALS (21 sets, daily range): BP systolic 122–167; BP diastolic 67–99; PULSE 69–98; RESP 13–28; TEMP 36.9–37.1; O2SAT 93–99; BMI 34.1
--- NOTE | 2023-02-07 06:00 | XACV_ITS ---
Exam Room: 2 Ht: 170 cm Wt: 99 kg BSA: 2.20 m2 Gender: Male : 1960 Any Known Allergies: No known allergies Exam Priority: Routine Procedure(s): Procedure Description: Diagnostic procedure Procedure Description: Left Heart Catheterization Procedure Description: Right Heart Catheterization Procedure Description: Left ventriculography Procedure Description: O2 saturation Procedure Description: Coronary Angiography Ajit RYDER; Diagnostic Cath Status: Elective Diagnostic Findings * The left main is a medium caliber vessel with no significant stenotic lesions. * The left anterior descending artery is a medium caliber vessel which appears to wrap around the LV apex minimally. The proximal LAD was found to have mild to moderate diffuse disease. There was a segmental lesion of around 60% before the first septal sound effects technician. The mid LAD was found to have mild diffuse disease. Distal LAD was found to have around 80% segmental narrowing. The first diagonal branch was found to have 40 to 50% diffuse stenosis proximally. The first septal sound effects technician was found to have a high-grade ostial stenosis. * The left circumflex artery is a medium caliber vessel which was found to have a an ostial stenosis of around 70%. The first obtuse marginal branch comes off need to the ostium. The ostium of the first obtuse marginal artery was found to have around 90% gnosis. The second and the third obtuse marginal arteries were found to have mild diffuse disease. No significant stenotic lesions were noted. * The right coronary artery is a medium caliber dominant vessel which was found to have a 99% ostial stenosis. The mid and distal segment of the artery was found to have mild to moderate diffuse disease. Collateral filling of the PLV and PDA branches were noted during the left coronary injection. Conclusions 1. 62-year-old white male with history of hypertension, dyslipidemia and COPD, was recently admitted to hospital when he presented with progressive shortness of breath. He was found to have features of congestive heart failure. Subsequent Myocardial perfusion imaging revealed areas of fixed and reversible defects mostly in the distribution of the right coronary artery and circumflex artery. The LV ejection fraction by echocardiogram was around 45%. However with the perfusion imaging, the ejection fraction was estimated to be 29%. Patient continued to have shortness of breath and generalized weakness. For further evaluation of his coronary status as well as the hemodynamics, a right and left heart catheterization with the coronary angiogram was recommended. Patient underwent this procedure today. The findings are as follows.. 2. 1. No significant stenosis in the left main. 2. Moderate disease in the proximal LAD. High-grade lesion of around 80% in the distal LAD. Mild to moderate disease in the first diagonal and a high-grade lesion in the ostium of the first septal sound effects technician. 3. High-grade ostial stenosis of the circumflex artery. High-grade ostial stenosis of the first obtuse marginal artery. 4. High-grade ostial stenosis right coronary artery. Fairly good rabi-re-mslya collaterals during the left coronary injection. 5. LV ejection fraction of around 30%. LVEDP was 26 mmHg.. 3. The right heart catheterization revealed PA pressure 45/24 with a mean of 32. RV pressure 43/3 with a mean of 12. Pulmonary capillary wedge pressure was 17. Right atrial mean pressure was 10. Cardiac output by Armando's was 5 with an index of 2.0. 4. The mean gradient across the aortic valve was 15 mmHg. Aortic valve area was calculated to be 1.2 cm2(moderate stenosis). Diagnostic RX Recommendation: CABG LV EDP: 26 mmHg Ventriculography Ejection Fraction: 30.0 % Left Ventriculography Findings: * The LV gram was performed in the BENSON projection. LV cavity appeared to be mildly dilated. LVEDP was 26 mmHg. There was no filling defects. No significant mitral valve prolapse. Mild mitral regurgitation was noted. Pressures Phase:Rest AO : 124 / 71 ( 94 ) @ 9:59:00 AM 118 / 72 ( 89 ) @ 10:03:00 AM 111 / 66 ( 86 ) @ 10:06:00 AM 130 / 85 ( 106 ) @ 10:16:00 AM 169 / 84 ( 119 ) @ 10:22:00 AM 168 / 82 ( 118 ) @ 10:22:00 AM LV : 165 / 6 / 26 @ 10:20:00 AM 171 / 12 / 35 @ 10:21:00 AM 181 / 14 / 37 @ 10:22:00 AM RV : 43 / 3 / 12 @ 9:48:00 AM PA : 45 / 24 ( 32 ) @ 9:47:00 AM RA : a wave = 14 v wave = 14 mean = 10 @ 9:50:00 AM PCW : a wave = 20 v wave = 19 mean = 17 @ 9:46:00 AM O2 Content Phase:Rest PA : O2 Content O2: 66.6 @ 9:59:00 AM Saturations Phase:Rest AO : 92 @ 10:16:00 AM RA : 66 @ 10:06:00 AM RV : 67 @ 10:03:00 AM PA : 67 @ 9:59:00 AM Cardiac Output Phase:Rest Armando : 5 @ 11:06:25 AM Armando Cardiac Index: 2 @ 11:06:25 AM Flow Phase:Rest Qp : 5 @ 11:06:25 AM Qs : 5 @ 11:06:25 AM Valves Phase:DefaultPhase AV : 13.0 @ 11:06:25 AM 13.0 @ 11:06:25 AM AV Mean Gradient: 15.0 @ 11:06:25 AM 15.0 @ 11:06:25 AM AV Flow: 211 @ 11:06:25 AM AV Area: 1.2 @ 11:06:25 AM AV Area Index: 0.59 @ 11:06:25 AM Clinical Evaluation EBL: 5mL-10mL Procedural Details Procedure Consent Obtained. Pre-Procedure Time Out. Identified patient by full name and date of as verbalized by the patient/guarantor. Does the consent match the physician's order: Yes. Accurate & Complete Informed Consent: Yes. Inpatient/Outpatient History & Physical on Chart: Yes. If H&P is completed, is and addenduem needed: No. Visualize and Verify Site with Patient/Guarantor: N/A. Relevant Radiology Images available: Yes. The risks, benefits, and alternatives of sedation and/or procedure were discussed by physician. The patient agrees to continue. Procedure started. [facility] Clinical Fraility Score: 4: Vulnerable. Creative Services Designer Indications: Other. CHF/Abnormal stress test. Chest Pain Symptom Assessment: Atypical Angina. Cardiovascular Instability: No. Correct patient, site and procedure confirmed by cath team. PERRLA. Strong, equal hand application infrastructure engineer bilaterally. Lungs clear x 5 lobes. IV Site on Arrival: 20 gauge in the right anticubital to be used for the RHC. IV Site on Arrival: 20 gauge in the left forearm. IV Fluids: 0.9% NaCl at KVO. 0 mL infused prior to animal laboratory technician. Pre Procedural Pulses: bilateral radial was 2+. Pre Procedural Pulses: right dorsalis pedis was Absent. Pre Procedural Pulses: left dorsalis pedis was Doppled. Pre Procedural Pulses: right posterior tibial was Doppled. Pre Procedural Pulses: left posterior tibial was Absent. Oxygen started at 3liters/min via nasal canula. right groin was prepped with chloroprep then draped in the usual sterile fashion. right radial was prepped with chloroprep then draped in the usual sterile fashion. Physician notified. Baseline sample Acquired. HR: 87 BPM. Patient's family in CPRU. Dr. Fong will update at the completion of the procedure. Equipment: 6F - Radial. Cardiac Cath Pack. ACIST Manifold Kit Model BT 2000. Heparinized Saline (2 units/mL), 1000 mL bag. Physician arrived. Oxygen turnd off at this time for RHC. Physician scrubbed in. Immediate Pre-Procedure Time Out. Correct Patient: Yes; Correct Procedure: Yes; Correct Site: Yes; Correct Patient Position: Yes; Correct Supplies: Yes; Dried Flammable Prep: Yes; Blood Products Available: N/A;. Lidocaine 1% infiltrated to the right brachial. Comstock-Alden in. Oximetry samples were obtained. Normal venous range: 60-85%. Normal arterial range: 95-100%. Pressure measurements obtained. ABG drawn and sent with respiratory therapy. Comstock-Alden out. Lidocaine 1% infiltrated to the right radial. Arterial access obtained. Oxygen started at 3liters/min via nasal canula. A 5 mosotho Victor Hugo catheter in over the exchange J wire. Catheter unable to cannulate, removed over the exchange J wire. A 5 mosotho TIG catheter in over the exchange J wire. Multiple views taken of left coronary artery. Dr. López called to view cineography. Dr. López here. Catheter redirected to the RCA, unable to cannulate. Catheter removed over the exchange J wire. A 5 mosotho JR4 catheter in over the exchange J wire. Multiple views taken of right coronary artery. Catheter removed over the exchange J wire. A 5 mosotho Angled Pig catheter in over the exchange J wire. EDP Sample taken: LV 165/6,26; HR: 79 BPM; SpO2: 98%. LV gram performed in BENSON @ 10 mL/second for a total of 30 mL. EDP Sample taken: LV 171/12,35; HR: 78 BPM; SpO2: 98%. Pullback taken: LV 181/14,37; AO 168/82(118); Mean: 15mmHg, Peak to Peak: 13mmHg, SEP: 24sec/min; HR: 81 BPM; SpO2: 98%. Catheter removed over the exchange J wire. Dr. Fong scrubbed out. Patient's family updated by Dr. Fong. A Manual Compression was successful obtaining hemostatsis at the Right Brachial Vein insertion site. A TR Band was successful obtaining hemostatsis at the Right Radial artery insertion site. Venous Sheath(s) removed and manual pressure held until hemostasis was achieved. Bulky pressure dressing of Sterile 4x4s applied to the puncture site. No oozing or hematoma noted. Post sheath removal instructions were given and the patient verbalized understanding. TR band placed. Hemostasis obtained. Post Procedure: Pulses reassessed and unchanged. PERRLA. Strong, equal hand application infrastructure engineer bilaterally. No VTE prophylaxis required. Medication's Wasted: Lidocaine 1% = 2 mL. Medication's Wasted: Nitro = 49.8 mg. Medication's Wasted: Heparin = 1000 units. Medication's Wasted: Other = Fentanyl 75 mcg. Total IV fluids: 68 mL. Post-op diagnosis: Severe 3 vessell disease with EF of 30% via LV gram. Complications: none. Estimated blood loss: 5mL-10mL. Responsiveness - Normal response to verbal stimuli; alert and oriented, PERRLA. Airway - Unaffected, no intervention required; spontaneous ventilation. Circulation: W/N/L, pulses unchanged. Nausea/Vomiting: No. Procedure completed. Patient transferred by bed to CPRU. Vital chart was stopped. Access Site Site: Right Brachial Vein Sheath Size: 6 Fr Hemostasis Method: Manual Compression Hemostasis Success: Successful Site: Right Radial artery Sheath Size: 6 Fr Hemostasis Method: TR Band Hemostasis Success: Successful Procedure Medications Start: 8:35 AM Stop: 8:35 AM Medication: Versed Amount: 1 mg Route: I.V. Start: 8:54 AM Stop: 8:54 AM Medication: Versed Amount: 1 mg Route: I.V. Start: 8:57 AM Stop: 8:57 AM Medication: Verapamil Amount: 5 mg Route: I.A. Start: 8:57 AM Stop: 8:57 AM Medication: Nitrogylcerin Amount: 200 mcg Route: I.A. Start: 8:59 AM Stop: 8:59 AM Medication: Heparin Amount: 5000 units Route: I.V. Start: 9:10 AM Stop: 9:10 AM Medication: Fentanyl Amount: 25 mcg Route: I.V. I, the attending physician, have reviewed and verified all procedure medications. Yes, all medications given per verbal order History/Risk Factors Hypertension: No Dyslipidemia: Yes Peripheral Arterial Disease (PAD): No Myocardial Infarction (AK): No Obesity: Yes Renal Disease: No Tobacco Use: Current/Recent(w/in 1 year) Prior Interventions PCI: No CABG: No Valve Surgery: No Report Signatures Finalized by Dr Demetrius Fong MD [facility] on 02/07/2023 11:22 PM
[2023-02-07 07:39] LABS: Hematocrit 45.8 % (42.0-52.0); Hemoglobin 14.9 g/dL (11.7-16.6); Mean Corpuscular HGB Conc 32.5 g/dL (30.0-36.0); Mean Corpuscular Hemoglobin 29.4 pg (28.0-34.0); Mean Corpuscular Volume 90.3 fl (80-94); Mean Platelet Volume 9.5 fL (7.4-10.4); Platelet Count 194 10^3/cmm (130-400); Red Blood Count 5.07 10^6/uL (4.1-5.3); Red Cell Distribution Width 13.2 % (12.1-15.1); White Blood Count 11.7 10^3/uL (4.0-10.0)
[2023-02-07 07:56] LABS: Anion Gap 14.3 (5-19); Blood Urea Nitrogen 13 mg/dL (8-23); Calcium 9.4 mg/dL (8.5-10.5); Carbon Dioxide 29 mmol/L (22-29); Chloride 102 mmol/L (98-107); Glomerular Filtration Rate 75.2 mL/min (90-130); Glucose 93 mg/dL (65-115); Osmolality Calculated 292 mOsm/kg (285-295); Potassium 4.3 mmol/L (3.5-5.1); Sodium 141 mmol/L (136-145)
[2023-02-07] MEDS: diphenhydrAMINE 50 mg Capsule PO (07:59)
[2023-02-07 08:14] LABS: Slide Review Slide Review Perform
[2023-02-07 08:15] LABS: Absolute Eosinophils 0.9 10^3/cmm (0.0-0.7); Absolute Neutrophil 4.1 10^3/cmm (1.4-6.5); Band Neutrophils Absolute 0.1 10^3/cmm (0.0-1.2); Eosinophils 8 %; Lymphocytes 33 %; Monocytes Absolute 0.7 10^3/cmm (0.1-0.6); Platelet Estimate Decreased (Normal); Segmented Neutrophils 34 %; Total Cells Counted 100 (0-100)
--- NOTE | 2023-02-07 08:21 | W.PM.OPSUD ---
Surgery/Procedure H&P Update DATE OF PROCEDURE: February 07, 2023 DATE H&P PERFORMED: 01/18/23 H&P UPDATE INFORMATION: I have reviewed H&P completed within last 30 days, I have examined patient prior to procedure and No changes to prior documentation PREOP DIAGNOSIS: ASHD PRIMARY INDICATION FOR PROCEDURE: CHF/ LV dysfunction/Abnormal stress test PLANNED PROCEDURE: Operation Date: 02/07/23 08:30 Proposed Procedures p RLHC W/-W/O 74232, R94.39,I50.22,I35.0, I42.9,E78.5(Bilateral) - Demetrius Fong MD PATIENT REASSESSED PRIOR TO SEDATION, WITH NO CHANGE NOTED: Yes PHYSICAL EXAM: alert and oriented x 3 (scattered expiratory wheezes and occasional coarsecrackles) AIRWAY EVAL/ANESTHESIA PLAN: normal airway, see other exam findings, ASA III, Monitored Anesthesia, Local Anesthesia, Risks, benefits & alternatives of sedation and/or procedure discussed and Patient agrees to continue as planned
[2023-02-07 09:03] LABS: Arterial Blood Gas Hematocrit 45.8 % (42-52); Blood Gas Operator Identificat PA; Blood Gas Sample Site Not specified; Blood Gas Sample Type Not specified; Carboxyhemoglobin 2.4 %THgb (0.4-20.1); HGB O2 Sat 64.5 % (95-100); Methemoglobin 0.7 % (0.4-1.5); Oxygen Device ROOM AIR; Total Hemoglobin 14.9 g/dL (14-18)
[2023-02-07 09:05] LABS: Arterial Blood Gas Hematocrit 39.6 % (42-52); Blood Gas Operator Identificat RV; Blood Gas Sample Site Not specified; Blood Gas Sample Type Not specified; Carboxyhemoglobin 2.5 %THgb (0.4-20.1); Methemoglobin 0.9 % (0.4-1.5); Oxygen Device ROOM AIR; Total Hemoglobin 12.9 g/dL (14-18)
[2023-02-07 09:06] LABS: Arterial Blood Gas Hematocrit 45.1 % (42-52); Blood Gas Operator Identificat RA; Blood Gas Sample Site Not specified; Blood Gas Sample Type Not specified; Carboxyhemoglobin 2.4 %THgb (0.4-20.1); HGB O2 Sat 63.9 % (95-100); Methemoglobin 0.5 % (0.4-1.5); Oxygen Device ROOM AIR; Total Hemoglobin 14.7 g/dL (14-18)
[2023-02-07 09:07] LABS: Alveolar-Arterial Oxygen Gradi 4.6 mmHg (5-10); Arterial Blood Gas Hematocrit 45.4 % (42-52); Blood Gas Operator Identificat AO; Blood Gas Sample Site Not specified; Blood Gas Sample Type Arterial; Carboxyhemoglobin 2.4 %THgb (0.4-20.1); HGB O2 Sat 88.7 % (95-100); Methemoglobin 0.7 % (0.4-1.5); Total Hemoglobin 14.8 g/dL (14-18)
[2023-02-07 09:08] LABS: Oxygen Device ROOM AIR
--- NOTE | 2023-02-07 10:06 | PC.NURSE ---
received pt from crime lab technician post the [facility]. tr band on right wrist. pt and family educated on restrictions and both verbally acknowledged. pt complains of no pain. distal radial pulse palpable, no bruising or hematoma noted. pt to be transferred to [facility] after 30 mins recovery here in cp[facility]. pt placed on vitals monitor and will be monitor per protocol.
--- NOTE | 2023-02-07 11:00 | PC.NURSE ---
Patient arrived from labor economics teacher awake and alert. TR band in place, no hematoma or oozing present. Nurse will continue to monitor
--- NOTE | 2023-02-07 17:30 | PC.NURSE ---
TR band removed per protocol. No issues, dressing applied, no hematoma present. Patient aware of activity restrictions.
[2023-02-07] MEDS: atorvastatin 40 mg Tablet PO (21:11)
[2023-02-07] MEDS: budesonide 0.5 mg/2 mL Neb INHALATION (22:19)
[2023-02-07] MEDS: ipratropium-albuterol 3 mL Neb INHALATION (22:19)
[2023-02-08] VITALS: BP 148/86; PULSE 96; RESP 22; O2SAT 91
[2023-02-08 04:00] VITALS: BP 135/86; PULSE 89; RESP 19; O2SAT 90
[2023-02-08 05:49] VITALS: PULSE 90
[2023-02-08 07:50] VITALS: BP 156/85; PULSE 96; RESP 18; TEMP 36.8; O2SAT 95
[2023-02-08 08:00] VITALS: PULSE 100; RESP 17; O2SAT 93
[2023-02-08] MEDS: budesonide 0.5 mg/2 mL Neb INHALATION (08:21)
[2023-02-08] MEDS: ipratropium-albuterol 3 mL Neb INHALATION (08:21)
[2023-02-08] MEDS: sacubitril/valsartan 24-26 mg Tablet 1 EACH PO (09:32)
[2023-02-08] MEDS: metoprolol tartrate 25 mg Tablet 12.5 MG PO (09:33)
[2023-02-08] MEDS: lamoTRIgine 25 mg Tablet PO (09:33)
[2023-02-08] MEDS: aspirin 81 mg EC Tablet PO (09:33)
--- NOTE | 2023-02-08 09:37 | PM.PN ---
Subjective Subjective: The patient is feeling okay. Has not had any chest pain or shortness of breath. Vitals are remaining stable. No hematoma bleeding from the radial arterial puncture site. Medications: Medication Review Details: Current Medications Acetaminophen (Acetaminophen 325 Mg Tablet) 650 mg PO Q6H PRN PRN Reason: MILD PAIN Al Hydrox/Mg Hydrox/Simethicone (Axsm-Alw-Hqojrcgig-Mariela 30 Ml Udc) 30 ml PO Q15M PRN PRN Reason: INDIGESTION Albuterol Sulfate (Albuterol 2.5 Mg/3 Ml Neb) 2.5 mg INHALATION Q6H PRN PRN Reason: shortness of breath or wheezin Albuterol/Ipratropium (Ipratropium-Albuterol 3 Ml Neb) 3 ml INHALATION QID.RESPIRATORY LEYDI Last Admin: 02/08/23 08:21 Dose: 3 ml Aspirin (Aspirin 81 Mg Ec Tablet) 81 mg PO DAILY LEYDI Last Admin: 02/08/23 09:33 Dose: 81 mg Atorvastatin Calcium (Atorvastatin 40 Mg Tablet) 40 mg PO BEDTIME LEYDI Last Admin: 02/07/23 21:11 Dose: 40 mg Atropine Sulfate (Atropine 1 Mg/Ml Sdv 1 Ml) 0.5 mg IVP PRN PRN PRN Reason: Symptomatic bradycardia Budesonide (Budesonide 0.5 Mg/2 Ml Neb) 0.5 mg INHALATION BID.RESPIRATORY LEYDI Last Admin: 02/08/23 08:21 Dose: 0.5 mg Fentanyl (Fentanyl 50 Mcg/Ml Inj 2ml) 50 mcg IVP PRN PRN PRN Reason: Prior to sheath removal Lamotrigine (Lamotrigine 25 Mg Tablet) 25 mg PO DAILY LEYDI Last Admin: 02/08/23 09:33 Dose: 25 mg Magnesium Hydroxide (Magnesium Hydroxide 30 Ml Udc) 30 ml PO DAILY PRN PRN Reason: CONSTIPATION Metoprolol Tartrate (Metoprolol Tartrate 25 Mg Tablet) 12.5 mg PO DAILY [facility] Last Admin: 02/08/23 09:33 Dose: 12.5 mg Naloxone HCl (Naloxone 0.4 Mg/Ml Sdv) 0.1 mg IVP Q2M PRN PRN Reason: RESPIRATORY RATE < 8/MIN Nitroglycerin (Nitroglycerin 0.4 Mg Sublingual Tablet) 0.4 mg SUBLINGUAL Q5M PRN PRN Reason: CHEST PAIN Non-Formulary Medication (Oxygen) 2 l NASAL DIRECTED [facility] Sacubitril/Valsartan (Sacubitril/Valsartan 24-26 Mg Tablet) 1 each PO BID [facility] Last Admin: 02/08/23 09:32 Dose: 1 each Temazepam (Temazepam 15 Mg Capsule) 15 mg PO BEDTIME PRN PRN Reason: INSOMNIA Vitals/I&O/Wt Last Vital Signs Temp 98.2 F 02/08/23 07:50 Pulse 100 02/08/23 08:00 Resp 17 02/08/23 08:00 BP 156/85 02/08/23 07:50 Pulse Ox 93 02/08/23 08:00 O2 Del Method Nasal Cannula 02/08/23 08:00 O2 Flow Rate 2 02/08/23 08:00 02/07/23 02/08/23 02/08/23 22:59 06:59 14:59 Intake Total 420 / 420 480 / 480 Balance 420 / 420 480 / 480 Weight last 48 hrs Weight 218 lb Weight 218 lb Physical Exam Narrative: GENERAL: The patient is alert and oriented times three. Not in any acute distress. HEENT: No significant pallor, icterus or lymphadenopathy.Oral cavity: There are no mucous membrane lesions. NECK: Trachea appears to be central. No masses noted. No JVD or thyromegaly appreciated. RESPIRATORY: Chest is symmetrical. No intercostals muscle retraction or any accessory muscle activation. There is no chest wall tenderness. Breath sounds are heard bilaterally. No rales or rhonchi heard. No evidence of any consolidation. BREASTS: Deferred. HEART: The heart sounds are normal. No S3 or S4. The systolic murmur grade 3 or 6 in the aortic area. No diastolic murmurs. Short systolic murmur in the lower sternal border. No pericardial rub ABDOMEN: No vessel pulsations or distention. No tenderness. No organomegaly appreciated. Bowel sounds are normally heard. : Deferred. RECTAL: Deferred. LYMPHATIC: No lymphadenopathy noted in the neck. EXTREMITIES: No edema or cyanosis. No clubbing. MUSCULOSKELETAL: No acute joint deformities or swelling SKIN: There are no significant rashes or ecchymosis NEUROPSYCHIATRIC: The patient is alert and oriented x3. Appears to be in a good mood. No tremors or rigidity noted. Data 02/07/23 07:24 02/07/23 07:24 Other Labs: Laboratory Last Values WBC 11.7 10^3/uL (4.0-10.0) H 02/07/23 07:24 RBC 5.07 10^6/uL (4.1-5.3) 02/07/23 07:24 Hgb 14.9 g/dL (11.7-16.6) 02/07/23 07:24 Hct 45.8 % (42.0-52.0) 02/07/23 07:24 MCV 90.3 fl (80-94) 02/07/23 07:24 MCH 29.4 pg (28.0-34.0) 02/07/23 07:24 MCHC 32.5 g/dL (30.0-36.0) 02/07/23 07:24 RDW 13.2 % (12.1-15.1) 02/07/23 07:24 Plt Count 194 10^3/cmm (130-400) 02/07/23 07:24 MPV 9.5 fL (7.4-10.4) 02/07/23 07:24 Lymph % (Auto) Not Reportable 02/07/23 07:24 Morrison % (Auto) Not Reportable 02/07/23 07:24 Lymph # (Auto) Not Reportable 02/07/23 07:24 Morrison # (Auto) Not Reportable 02/07/23 07:24 Total Counted 100 (0-100) 02/07/23 07:24 Atypical Lymphs % 18.0 % (0-5) H 02/07/23 07:24 Absolute Neutrophils 4.1 10^3/cmm (1.4-6.5) 02/07/23 07:24 Segmented Neutrophils 34 % 02/07/23 07:24 Abs Segm Neuts (Man) 4.0 10/cmm (1.6-7.1) 02/07/23 07:24 Band Neutrophils 1.0 % 02/07/23 07:24 Abs Band Neuts (Man) 0.1 10^3/cmm (0.0-1.2) 02/07/23 07:24 Absolute Lymphocytes 6.0 10^3/cmm (1.2-3.4) H 02/07/23 07:24 Lymphocytes (Manual) 33 % 02/07/23 07:24 Monocytes (Manual) 6.0 % 02/07/23 07:24 Absolute Monocytes 0.7 10^3/cmm (0.1-0.6) H 02/07/23 07:24 Eosinophils (Manual) 8 % 02/07/23 07:24 Absolute Eosinophils 0.9 10^3/cmm (0.0-0.7) H 02/07/23 07:24 Basophils (Manual) 0.0 % 02/07/23 07:24 Absolute Basophils 0.0 10^3/cmm (0.0-0.2) 02/07/23 07:24 Platelet Estimate Decreased (Normal) 02/07/23 07:24 Specimen Type Arterial 02/07/23 08:51 Specimen Type Not specified 02/07/23 08:51 Specimen Type Not specified 02/07/23 08:51 Specimen Type Not specified 02/07/23 08:51 Sample Site Not specified 02/07/23 08:51 Sample Site Not specified 02/07/23 08:51 Sample Site Not specified 02/07/23 08:51 Sample Site Not specified 02/07/23 08:51 Jerry Test N/a 02/07/23 08:51 Jerry Test N/a 02/07/23 08:51 Jerry Test N/a 02/07/23 08:51 Jerry Test N/a 02/07/23 08:51 A-a O2 Gradient 4.6 mmHg (5-10) L 02/07/23 08:51 A-a O2 Gradient Not Reportable 02/07/23 08:51 A-a O2 Gradient Not Reportable 02/07/23 08:51 A-a O2 Gradient Not Reportable 02/07/23 08:51 Hematocrit 39.6 % (42-52) L 02/07/23 08:51 Hematocrit 45.1 % (42-52) 02/07/23 08:51 Hematocrit 45.4 % (42-52) 02/07/23 08:51 Hematocrit 45.8 % (42-52) 02/07/23 08:51 Hgb O2 Saturation 63.9 % (95-100) L 02/07/23 08:51 Hgb O2 Saturation 64.5 % (95-100) L 02/07/23 08:51 Hgb O2 Saturation 65.0 % (95-100) L 02/07/23 08:51 Hgb O2 Saturation 88.7 % (95-100) L 02/07/23 08:51 Carboxyhemoglobin 2.4 %THgb (0.4-20.1) 02/07/23 08:51 Carboxyhemoglobin 2.4 %THgb (0.4-20.1) 02/07/23 08:51 Carboxyhemoglobin 2.4 %THgb (0.4-20.1) 02/07/23 08:51 Carboxyhemoglobin 2.5 %THgb (0.4-20.1) 02/07/23 08:51 Methemoglobin 0.5 % (0.4-1.5) 02/07/23 08:51 Methemoglobin 0.7 % (0.4-1.5) 02/07/23 08:51 Methemoglobin 0.7 % (0.4-1.5) 02/07/23 08:51 Methemoglobin 0.9 % (0.4-1.5) 02/07/23 08:51 Total Hemoglobin 12.9 g/dL (14-18) L 02/07/23 08:51 Total Hemoglobin 14.7 g/dL (14-18) 02/07/23 08:51 Total Hemoglobin 14.8 g/dL (14-18) 02/07/23 08:51 Total Hemoglobin 14.9 g/dL (14-18) 02/07/23 08:51 O2 Delivery Device Room air 02/07/23 08:51 O2 Delivery Device Room air 02/07/23 08:51 O2 Delivery Device Room air 02/07/23 08:51 O2 Delivery Device Room air 02/07/23 08:51 FiO2 21.0 % 02/07/23 08:51 FiO2 21.0 % 02/07/23 08:51 FiO2 21.0 % 02/07/23 08:51 FiO2 21.0 % 02/07/23 08:51 Compressor Battery Pellets ID Ao 02/07/23 08:51 Compressor Battery Pellets ID Pa 02/07/23 08:51 Compressor Battery Pellets ID Ra 02/07/23 08:51 Compressor Battery Pellets ID Rv 02/07/23 08:51 Sodium 141 mmol/L (136-145) 02/07/23 07:24 Potassium 4.3 mmol/L (3.5-5.1) 02/07/23 07:24 Chloride 102 mmol/L (98-107) 02/07/23 07:24 Carbon Dioxide 29 mmol/L (22-29) 02/07/23 07:24 Anion Gap 14.3 (5-19) 02/07/23 07:24 BUN 13 mg/dL (8-23) 02/07/23 07:24 Creatinine 1.0 mg/dL (0.7-1.2) 02/07/23 07:24 GFR Calculation 75.2 mL/min (90-130) L 02/07/23 07:24 Glucose 93 mg/dL (65-115) 02/07/23 07:24 Calculated Osmolality 292 mOsm/kg (285-295) 02/07/23 07:24 Calcium 9.4 mg/dL (8.5-10.5) 02/07/23 07:24 A&P Assessment and plan (1) 3-vessel CAD: Patient may benefit from surgical revascularization. I contacted Dr. Sánchez at the [facility]. Dr. Sánchez will be seeing this patient, possibly tomorrow in his office with the cardiac surgical team and make a final decision on his further event. (2) Aortic stenosis: Found to be moderate. (3) Cardiomyopathy: LV ejection fraction was around 30% by echocardiogram. He was started on Entresto in the hospital. This may be continued. (4) Chronic systolic (congestive) heart failure: Patient also needs to be started on spironolactone as an outpatient (5) Pulmonary hypertension: The mean pulmonary artery pressure was 32 mmHg. (6) COPD (chronic obstructive pulmonary disease): May continue on the current management. Qualifiers: COPD type: unspecified COPD Qualified Code(s): J44.9 - Chronic obstructive pulmonary disease, unspecified Plan Since the patient remained stable, he is being discharged home today. Appointment at the [facility] as mentioned above. Dr. Sánchez's office will be contacting the patient about his appointment. Attestations Medical Necessity Statement*: Discharge home today Coding Level of Care Code Acute Code for Chg Fwd Diagnoses 3-vessel CAD I25.10 Aortic stenosis I35.0 Cardiomyopathy I42.9 Chronic systolic (congestive) heart failure I50.22 Pulmonary hypertension I27.20 COPD (chronic obstructive pulmonary disease) J44.9 COPD type: unspecified COPD
--- NOTE | 2023-02-08 11:15 | PC.NURSE ---
Discharge Note Patient discharged to home via wheelchair accompanied by transport. Discharge instructions reviewed with patient and/or representative phlebotomy services. Mobile pharmacy medications and/or prescriptions provided. Belongings/home medications returned.
== END 2023-02-08 11:15 | disposition home or self-care (01) ==
LOC: CCL 06:43 → CSU 02-08 07:47
PROVIDERS: PCP Registered Nurse; Visit Provider Internal Medicine Cardiovascular Disease
DX: I25.10 Atherosclerotic heart disease of native coronary artery without angina pectoris (principal); I50.22 Chronic systolic (congestive) heart failure; J44.9 Chronic obstructive pulmonary disease, unspecified; I27.20 Pulmonary hypertension, unspecified; E78.5 Hyperlipidemia, unspecified; I35.0 Nonrheumatic aortic (valve) stenosis; F17.200 Nicotine dependence, unspecified, uncomplicated
CPT/HCPCS: 36415; 80048; 82810; 85007; 85025; 93460; 94640; 96361; 96365; 99152; 99153; C1751; C1769; C1887; C1894; J1644; J2250; J3010; J3490; J7030; J7626; Q0163; Q9967

== ENCOUNTER → 2023-02-15 09:56 | Outpatient (BNVA) | payer MEDICARE, MEDICAID, SELFPAY | PROVIDERS: PCP Registered Nurse; Visit Provider Nurse Practitioner Family | DX: I25.10 Atherosclerotic heart disease of native coronary artery without angina pectoris (principal); I50.22 Chronic systolic (congestive) heart failure; I35.0 Nonrheumatic aortic (valve) stenosis; F17.210 Nicotine dependence, cigarettes, uncomplicated; R07.9 Chest pain, unspecified | CPT/HCPCS: 80048; 83880; 99214 ==

== ENCOUNTER → 2023-02-27 13:54 | Outpatient (BNVA) | payer MEDICARE, MEDICAID, SELFPAY | PROVIDERS: PCP Registered Nurse; Visit Provider Internal Medicine Pulmonary Disease | DX: R91.8 Other nonspecific abnormal finding of lung field (principal); I51.89 Other ill-defined heart diseases; J44.9 Chronic obstructive pulmonary disease, unspecified; F17.210 Nicotine dependence, cigarettes, uncomplicated; Z99.81 Dependence on supplemental oxygen | CPT/HCPCS: 99214 ==

== ENCOUNTER → 2023-12-18 09:42 | Outpatient (BNVA) | payer MEDICARE, MEDICAID, SELFPAY | PROVIDERS: PCP Registered Nurse; Visit Provider Internal Medicine Pulmonary Disease | DX: R91.8 Other nonspecific abnormal finding of lung field (principal); I51.89 Other ill-defined heart diseases; F17.200 Nicotine dependence, unspecified, uncomplicated; J44.9 Chronic obstructive pulmonary disease, unspecified | CPT/HCPCS: 99214 ==

== ENCOUNTER → 2024-01-24 10:53 | Outpatient (BNVA) | payer MEDICARE, MEDICAID, SELFPAY | PROVIDERS: PCP Registered Nurse; Visit Provider Registered Nurse | DX: I10 Essential (primary) hypertension (principal); Z12.11 Encounter for screening for malignant neoplasm of colon; R91.8 Other nonspecific abnormal finding of lung field; Z00.00 Encounter for general adult medical examination without abnormal findings; F17.200 Nicotine dependence, unspecified, uncomplicated; Z71.85 Encounter for immunization safety counseling | CPT/HCPCS: 80053; 80061; 81000; 85025 ==

== ENCOUNTER → 2024-02-02 09:09 | Outpatient (BNVA) | payer MEDICARE, MEDICAID, SELFPAY | PROVIDERS: PCP Registered Nurse; Referring Provider Registered Nurse; Visit Provider Surgery | DX: K21.9 Gastro-esophageal reflux disease without esophagitis (principal); K59.04 Chronic idiopathic constipation; R10.32 Left lower quadrant pain | CPT/HCPCS: 99204 ==

== ENCOUNTER 2024-02-06 10:39 | Outpatient (CLI) | payer MEDICARE, MEDICAID, SELFPAY ==
--- NOTE | 2024-02-06 11:30 | PETR_ITS ---
PROCEDURE INFORMATION: Exam: PET/CT Skull Base to Mid-thigh Exam date and time: 02/06/2024 11:43 AM Age: 63 years old Clinical indication: Abnormal findings; No evidence of pulmonary emboli. 2. Pulmonary emphysematous changes. Several pulmonary nodules as described. Highly suspicious nodule(s). Consider non-emergent pet/ct, or tissue sampling. (reference: [facility]) 3. No pulmonary consolidation to suggest pneumonia. 4. Low-density renal lesions and consider follow-up ultrasound if no prior studies to compare no previous definitive assessment; Additional info: R91.8 - other nonspecific abnormal finding of lung field LABS AND CLINICAL REPORTS: Glucose: 95 mg/dl Treatment strategy for malignancy (PET staging): Initial Staging (PI) TECHNIQUE: Imaging protocol: Following at least four-hour fasting and following the injection of radiopharmaceutical, low dose CT images were obtained. Then, PET images were obtained. Attenuation corrected images were constructed using the CT scan. Fused images of PET and CT were reviewed. The standardized uptake values (SUV) reported below are maximum values within a region of interest, expressed in gm/ml. Exam includes orbital meatal line to mid-thigh. Radiopharmaceutical: 15.7 mCi F-18 FDG (Fluorodeoxyglucose), IV. Time of imaging post radiopharmaceutical administration: 1 hour Injection site: Right antecubital COMPARISON: CT angio chest PE protcl [id number] 12/26/2022 6:35 AM, CTA head and neck 06/02/2020 FINDINGS: Brain: Visualized brain has normal physiologic uptake. Oral cavity: There is benign-appearing, likely physiologic uptake in the left pterygoid musculature without evidence of a correlating lesion on the CT images. Pharynx: No abnormal uptake. Larynx: Mild, physiologic appearing uptake is noted in the region of the larynx. Lungs, pleura and trachea: No abnormal uptake. Moderate bilateral centrilobular and paraseptal emphysematous changes are present. Mild biapical pleural scarring is noted. In the medial left upper lobe a wafer like ovoid solid noncalcified nodular density on series 3, image 65 measuring 0.8 x 0.5 cm is noted without elevated uptake and appears morphologically similar. A previously noted triangular pleural based nodular density in the region of the lingula measures approximately 8 mm on series 3, image 106 and appears similar. No definite additional pulmonary nodules are identified, with limitations of respiratory motion artifact. A previously noted approximately 1 cm solid right upper lobe nodule is not currently identified. Heart: Normal physiologic uptake. Mediastinal space: No abnormal uptake. Esophagus: There is mild, likely physiologic uptake in the distal esophagus without definite wall thickening or mass on the CT images, SUV max 3.0. Liver: No abnormal uptake. Gallbladder and bile ducts: No abnormal uptake. Pancreas: No abnormal uptake. Spleen: No abnormal uptake. Adrenal glands: No abnormal uptake. Kidneys and ureters: Normal physiologic uptake. Non radiotracer avid low-density structures in the bilateral kidneys are likely related to benign cysts. Stomach and bowel: No abnormal uptake. Vasculature: There are diffuse atherosclerotic calcifications including within the coronary arteries. Lymph nodes: Mildly prominent mediastinal lymph nodes are noted without elevated uptake. Skeleton: No abnormal uptake in the visualized axial and appendicular skeleton. Non radiotracer avid serpiginous regions of sclerotic density in the right femoral head are consistent with avascular necrosis. An ovoid region of non radiotracer avid sclerotic density in the superior right humeral head measuring 2.3 x 1.0 cm is noted. Moderate degenerative appearing subcortical cystic changes in the right acetabulum are noted. The bones appear demineralized. Degenerative changes in the spine are noted. Soft tissues: Regions of benign-appearing muscular uptake are noted in the inferior neck. METRICS: Mediastinal blood pool: SUV max 2.0 [id number] IMPRESSION: 1. No evidence of radiotracer avid malignancy. 2. Left lung pulmonary nodules appears similar and are not radiotracer which favors a benign etiology, however, assessment of small nodules can be limited by PET-CT. Previously noted right-sided pulmonary nodules are not identified. 3. 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 4. Additional nonurgent findings as detailed above.
== END 2024-02-06 10:40 | disposition home or self-care (01) ==
PROVIDERS: PCP Registered Nurse; Visit Provider Registered Nurse
DX: R91.8 Other nonspecific abnormal finding of lung field (principal); M87.9 Osteonecrosis, unspecified; I25.10 Atherosclerotic heart disease of native coronary artery without angina pectoris
CPT/HCPCS: 78815; A9552

== ENCOUNTER → 2024-03-12 12:22 | Outpatient (BNVA) | payer MEDICARE, MEDICAID, SELFPAY | PROVIDERS: PCP Registered Nurse; Visit Provider Internal Medicine Cardiovascular Disease | DX: R07.9 Chest pain, unspecified (principal); I44.0 Atrioventricular block, first degree | CPT/HCPCS: 93005; 99214 ==

== ENCOUNTER → 2024-03-19 14:48 | Outpatient (BNVA) | payer MEDICARE, MEDICAID, SELFPAY | PROVIDERS: PCP Registered Nurse; Visit Provider Physician Assistant | DX: M25.551 Pain in right hip (principal); M87.051 Idiopathic aseptic necrosis of right femur | CPT/HCPCS: 73502; 99213 ==

== ENCOUNTER → 2024-04-05 10:04 | Outpatient (BNVA) | payer MEDICARE, MEDICAID, SELFPAY | PROVIDERS: PCP Registered Nurse; Visit Provider Student in an Organized Health Care Education/Training Program | DX: M87.051 Idiopathic aseptic necrosis of right femur (principal) | CPT/HCPCS: 20610; 77002; 99213; J3301 ==

== ENCOUNTER 2024-04-19 13:07 | Outpatient (CLI) | payer MEDICARE, MEDICAID, SELFPAY | END 2024-04-19 13:08 | disposition home or self-care (01) | LOC: RAD 13:09 | PROVIDERS: PCP Registered Nurse; Visit Provider Internal Medicine Cardiovascular Disease | DX: R06.09 Other forms of dyspnea (principal) | CPT/HCPCS: 93306 ==

== ENCOUNTER → 2024-05-07 13:45 | Outpatient (BNVA) | payer MEDICARE, MEDICAID, SELFPAY | PROVIDERS: PCP Registered Nurse; Visit Provider Registered Nurse | DX: R50.9 Fever, unspecified (principal) | CPT/HCPCS: 80053; 85025 ==

== ENCOUNTER 2024-05-14 08:28 | Outpatient (CLI) | payer MEDICARE, MEDICAID, SELFPAY ==
[2024-05-14] MEDS: iohexol 350 mg/mL 500 mL Btl (per mL) PO (09:08)
--- NOTE | 2024-05-14 09:30 | CTR_ITS ---
PROCEDURE INFORMATION: Exam: CT Abdomen And Pelvis With Contrast Exam date and time: 05/14/2024 9:53 AM Age: 63 years old Clinical indication: Abdominal pain; Generalized; Patient HX: Center abd pain with n/v and loss of appetite x 1 month; Additional info: K57.92 - diverticulitis of intestine, part unspecified, w. . . TECHNIQUE: Imaging protocol: Computed tomography of the abdomen and pelvis with contrast. Radiation optimization: All CT scans at this facility use at least one of these dose optimization techniques: automated exposure control; mA and/or kV adjustment per patient size (includes targeted exams where dose is matched to clinical indication); or iterative reconstruction. Contrast material: OMNI 350; Contrast volume: 100 ml; Contrast route: INTRAVENOUS (IV); COMPARISON: PT PET skull to thigh INIT [id number] 02/06/2024 11:43 AM RADIATION DOSE METRICS: Total DLP (mGy-cm): 626.74 FINDINGS: Lungs: No significant pathology at the imaged lung bases. Coronary arteries: Coronary artery calcifications. Diaphragm: Small hiatal hernia. Liver: No significant liver pathology. Gallbladder and biliary ducts: No significant gallbladder pathology. No biliary dilatation. Pancreas: No significant pancreatic pathology. Spleen: No significant pathology. Adrenal glands: No significant adrenal pathology. Kidneys and ureters: There are renal cortical cysts and subcentimeter cortical hypodensities which are indeterminate by criteria but statistically most likely represent cysts. Vascular calcifications in the left renal hilum. Stomach and bowel: Colonic diverticulosis without evidence of focal inflammatory change. Moderate amount of colonic stool. Appendix: Appendix within normal limits. Intraperitoneal space: No ascites. Vasculature: No abdominal aortic aneurysm. Lymph nodes: Borderline sized right inguinal lymph node on series 4, image 84. Nodes otherwise unremarkable. Urinary bladder: Urinary bladder is nondistended limiting assessment of the wall. Reproductive: No significant prostate pathology. Bones/joints: Degenerative change present in the spine, greatest at L4-L5. Soft tissues: Moderate bilateral fat containing inguinal hernias. Tiny fat containing umbilical hernia. CT/CT abdomen pelvis w con* [id number] IMPRESSION: 1. No acute pathology. 2. Abundant colonic stool with diverticulosis but no acute inflammatory change. 3. Minor findings noted above.
[2024-05-14] MEDS: iohexol 350 mg/mL 500 mL Btl (per mL) IV (10:16)
== END 2024-05-14 08:29 | disposition home or self-care (01) ==
LOC: RAD 08:29
PROVIDERS: PCP Registered Nurse; Visit Provider Registered Nurse
DX: K57.92 Diverticulitis of intestine, part unspecified, without perforation or abscess without bleeding (principal); I25.10 Atherosclerotic heart disease of native coronary artery without angina pectoris; K40.20 Bilateral inguinal hernia, without obstruction or gangrene, not specified as recurrent; M51.36 Other intervertebral disc degeneration, lumbar region; K57.90 Diverticulosis of intestine, part unspecified, without perforation or abscess without bleeding; I70.1 Atherosclerosis of renal artery; N28.1 Cyst of kidney, acquired
CPT/HCPCS: 74177; Q9967

== ENCOUNTER → 2024-11-18 11:13 | Outpatient (BNVA) | payer MEDICARE, MEDICAID, SELFPAY | PROVIDERS: PCP Registered Nurse; Visit Provider Registered Nurse | DX: E83.42 Hypomagnesemia (principal); J32.9 Chronic sinusitis, unspecified | CPT/HCPCS: 80053; 85025 ==

== ENCOUNTER 2024-11-19 17:12 | Inpatient (IN) | payer MEDICARE, MEDICAID, SELFPAY ==
[2024-11-19] VITALS (7 sets, daily range): BP systolic 142–175; BP diastolic 80–88; PULSE 85–97; RESP 19–32; TEMP 36.4–36.8; O2SAT 94–98; BMI 32.4
--- NOTE | 2024-11-19 17:14 | ECG_ITS ---
[facility]: 2024-11[facility]19 Pat Name: Frantz Macias Department: Room: Gender: Male Pulmonologist: : 1960 Requested By: Bailee Barker Order Number: [id number] Ildefonso MD: Vasquez López M.D. Measurements Intervals [place] Heart Rate: 89 P: 66 CO: 196 QRS: 85 QRSD: 134 T: 40 QT: 380 QTc: 463 Interpretive Statements SINUS RHYTHM INTRAVENTRICULAR CONDUCTION DELAY [130+ ms QRS DURATION] PROBABLE INFERIOR MYOCARDIAL INFARCTION , PROBABLY OLD [35 ms Q WAVE IN II/aVF] Compared to ECG 03/12/2024 12:27:24 Intraventricular conduction delay now present First degree AV block no longer present Right-axis deviation no longer present T-wave abnormality no longer present Possible ischemia no longer present Myocardial infarct finding still present Electronically Signed On 11-23-2024 18:11:00 [employer]ED[employer] OFFICER by Vasquez López M.D. [email or web address]
--- NOTE | 2024-11-19 17:15 | XRR_ITS ---
PROCEDURE INFORMATION: Exam: XR Chest Exam date and time: 11/19/2024 5:43 PM Age: 64 years old Clinical indication: Shortness of breath; Additional info: SOB TECHNIQUE: Imaging protocol: Radiologic exam of the chest. Views: 1 view. COMPARISON: CT angio chest PE protcl [id number] 12/26/2022 6:35 AM FINDINGS: Lungs: Diffuse interstitial coarsening. A few patchy opacities are seen throughout the lungs bilaterally. Right apical pleural thickening with adjacent nodular opacities. Pleural spaces: No pleural effusion. No pneumothorax. Heart/Mediastinum: Unremarkable. No cardiomegaly. Diaphragm: Asymmetric elevation of the right hemidiaphragm. Bones/joints: Unremarkable. XR/XR chest 1V portable [id number] IMPRESSION: 1. Diffuse interstitial coarsening with patchy airspace opacities may represent pulmonary edema and/or atypical infection. 2. Right apical pleural thickening with adjacent nodular opacities. Underlying malignancy not excluded. Consider CT chest for further evaluation.
[2024-11-19 17:38] LABS: Basophils % 0.3 %; Hematocrit 40.2 % (37-53); Lymphocytes # 1.9 10^3/uL (0.8-4.8); Lymphocytes % 27.9 %; Mean Corpuscular HGB Conc 30.8 g/dL (30-55); Mean Corpuscular Hemoglobin 27.8 pg (27-33); Mean Corpuscular Volume 90.1 fl (82-101); Mean Platelet Volume 9.3 fL (7.4-10.4); Monocytes # 0.4 10^3/uL (0.2-0.9); Monocytes % 5.4 %; Neutrophils # 4.41 10^3/uL (1.8-7.7); Neutrophils % 66.1 %; Nucleated Red Blood Cells % 0 %; Platelet Count 289 10^3/cmm (157-399); Red Blood Count 4.46 10^6/uL (3.85-5.65); Red Cell Distribution Width 13.9 % (12.1-15.1); White Blood Count 6.67 10^3/uL (3.29-11.43)
--- NOTE | 2024-11-19 17:47 | W.ED.SOB ---
HPI - SOB/Dyspnea General: Chief Complaint: Shortness of Breath/Dyspnea Stated Complaint: SOB Time Seen by Provider: 11/19/24 17:15 Source: patient Mode of arrival: ambulatory Limitations: no limitations History of Present Illness: HPI Narrative: 64-year-old male has extensive history of COPD he is on 3 L of oxygen at home at baseline states that some slight increased shortness of breath the last few days he seen yesterday was placed on antibiotic and a steroid that he started this morning he states that his PCP had called him told come to the ER concerned about he states fluid on his lungs he has had some increased swelling of his lower extremities is not on Lasix he denies any fever or chest pain Associated symptoms: Deny abdominal pain, chest pain, fever(s), nausea or vomiting Related Data Home Medications ?Medication ?Instructions ?Recorded ?Confirmed aspirin 81 mg capsule 81 mg PO DAILY 02/07/23 11/18/24 selenium 200 mcg capsule 200 mcg PO DAILY 12/18/23 11/18/24 Previous Rx's ?Medication ?Instructions ?Recorded budesonide 0.5 mg/2 mL suspension 1 mg (4 mL) inhalation DAILY J44.1 08/31/22 for nebulization COPD 30 days #60 mL oxygen 2 l nasal DIRECTED 365 days #1 11/16/22 ea D Tank with cart #1 ea 09/08/23 metoprolol tartrate 25 mg tablet 12.5 mg (1/2 x 25 mg) PO DAILY #45 01/05/24 tabs bisacodyl 5 mg tablet,delayed 5 mg PO DAILY #4 tabs 02/02/24 release (Dulcolax (bisacodyl)) atorvastatin 40 mg tablet 40 mg PO BEDTIME #90 tabs 03/28/24 mupirocin 2 % topical ointment 1 applic topical BID 10 days #15 06/12/24 grams sacubitril 24 mg-valsartan 26 mg See Rx Instructions .Route 07/18/24 tablet (Entresto) .COMPLEX #180 tabs pantoprazole 40 mg tablet,delayed See Rx Instructions .Route 10/16/24 release .COMPLEX #30 tabs fluticasone fur. 200 mcg-umeclid See Rx Instructions .Route 10/28/24 62.5 mcg-vilant 25 mcg .COMPLEX #60 ea inhalat.powder (Trelegy Ellipta) albuterol sulfate 90 mcg/actuation See Rx Instructions .Route 11/08/24 aerosol inhaler .COMPLEX #9 grams lamotrigine 25 mg tablet See Rx Instructions .Route 11/11/24 .COMPLEX #30 tabs azithromycin 250 mg tablet See Rx Instructions PO .COMPLEX #6 11/19/24 tabs prednisone 20 mg tablet 20 mg PO BID 5 days #10 tabs 11/19/24 Allergies Allergy/AdvReac Type Severity Reaction Status Date / Time No Known Allergies Allergy Verified 11/19/24 17:21 Review of Systems Const: Denies: fever(s), chills, body aches or change in appetite ENMT: Denies: throat pain or dental pain Card: Denies: chest pain Resp: Reports: dyspnea, non-productive cough and wheezing GI: Denies: abdominal pain, nausea, vomiting or diarrhea Musc: Reports: extremity swelling; Denies: neck pain or back pain Skin/Breast: Denies: rash Neuro: Denies: headache(s) PFSH ED PFSH: Medical History PAD (peripheral artery disease) Chronic idiopathic constipation Onychomycosis Smoking addiction Hemiparesis TIA (transient ischemic attack) COPD (chronic obstructive pulmonary disease) Seizure disorder Chronic headache disorder UTI (urinary tract infection), bacterial Seizure Family History Other Diabetes Heart disease Social History Smoking and tobacco/nicotine status: current every day tobacco/nicotine user cigarettes Packs smoked per day: 1 Years cigarettes smoked: 62 [ Other cigarette details: pt reports started fluently smoking at age 1] Alcohol intake: former Substance/Drug Use: never Adopted: No Caregiver/support person: No Lives independently: No Household members: spouse Marital status: service: No Current occupational status: disabled Sexually active: Yes Do you think of yourself as: Straight/Heterosexual Current gender identity: Male Physical Exam Const: COMMON NORMALS: patient oriented x3 HENMT: COMMON NORMALS: normocephalic and atraumatic HEAD & SCALP: normocephalic and atraumatic Eye: COMMON NORMALS: conjunctivae normal CONJUNCTIVA: Yes conjunctivae normal Neck/C-Spine: COMMON NORMALS: full ROM and supple Chest: COMMONS NORMALS: normal inspection of the chest Resp: COMMON NORMALS: No retractions and No use of accessory muscles AUSCULTATION: wheezes Cardio: COMMON NORMALS: regular rate, regular rhythm and No murmurs present (Cardio) RATE: regular rate RHYTHM: regular rhythm GI: COMMON NORMALS: Normal to inspection, nondistended, normoactive bowel sounds present, Soft to palpation, non-tender and no masses PALPATION: Yes Soft to palpation Extremity: COMMON NORMALS: full ROM NARRATIVE EXTREMITY EXAM: 2+ le edema Neuro: COMMON NORMALS: patient oriented x3, moves all extremities and no focal motor deficits Psych: COMMON NORMALS: mental status grossly normal, Normal thought process present and cooperative THOUGHT PROCESS: Normal thought process present Skin: COMMON NORMALS: no rashes or lesions noted and no wounds GENERAL SKIN EXAM: no rashes or lesions noted Course Vital Signs: Vital signs: Vital Signs Temperature 97.5 F L 11/19/24 17:15 Pulse Rate 88 11/19/24 18:29 Respiratory Rate 20 H 11/19/24 18:29 Blood Pressure 142/85 11/19/24 18:09 Pulse Oximetry 96 11/19/24 18:29 Oxygen Delivery Me thod Nasal Cannula 11/19/24 18:29 Oxygen Flow Rate 3 11/19/24 18:29 MDM - SOB/Dyspnea Medical Decision Making Patient presents here with shortness of breath likely COPD exacerbation along with pulmonary edema he does have lower extremity edema as well likely fluid overloaded. Does have possible pneumonia did start antibiotics we will give him Lasix will admit for further diuresis. Medical Records I reviewed the patient's medical records. Lab Data I reviewed the patient's lab results. 11/19/24 17:35 11/19/24 17:35 Labs/Radiology: Radiology Impressions Chest X-Ray 11/19/24 17:15 IMPRESSION: 1. Diffuse interstitial coarsening with patchy airspace opacities may represent pulmonary edema and/or atypical infection. 2. Right apical pleural thickening with adjacent nodular opacities. Underlying malignancy not excluded. Consider CT chest for further evaluation. Laboratory Results WBC 6.67 10^3/uL (3.29-11.43) 11/19/24 17:35 RBC 4.46 10^6/uL (3.85-5.65) 11/19/24 17:35 Hgb 12.40 g/dL (11.27-16.99) 11/19/24 17:35 Hct 40.2 % (37-53) 11/19/24 17:35 MCV 90.1 fl (82-101) 11/19/24 17:35 MCH 27.8 pg (27-33) 11/19/24 17:35 MCHC 30.8 g/dL (30-55) 11/19/24 17:35 RDW 13.9 % (12.1-15.1) 11/19/24 17:35 Plt Count 289 10^3/cmm (157-399) 11/19/24 17:35 MPV 9.3 fL (7.4-10.4) 11/19/24 17:35 Neut % (Auto) 66.1 % 11/19/24 17:35 Lymph % (Auto) 27.9 % 11/19/24 17:35 [place] % (Auto) 5.4 % 11/19/24 17:35 Eos % (Auto) 0.0 % 11/19/24 17:35 Baso % (Auto) 0.3 % 11/19/24 17:35 Neut # (Auto) 4.41 10^3/uL (1.8-7.7) 11/19/24 17:35 Lymph # (Auto) 1.9 10^3/uL (0.8-4.8) 11/19/24 17:35 [place] # (Auto) 0.4 10^3/uL (0.2-0.9) 11/19/24 17:35 Eos # (Auto) 0.0 10^3/uL (0.0-0.8) 11/19/24 17:35 Baso # (Auto) 0.0 10^3/uL (0.0-0.1) 11/19/24 17:35 Nucleated RBC % (auto) 0 % 11/19/24 17: Nucleated RBCs # 0.0 /100WBC 11/19/24 17:35 PT 13.20 SECONDS (12.1-14.9) 11/19/24 17:35 INR 0.94 (0.8-1.2) 11/19/24 17:35 Sodium 139 mmol/L (136-145) 11/19/24 17:35 Potassium 4.2 mmol/L (3.5-5.1) 11/19/24 17:35 Chloride 102 mmol/L (98-107) 11/19/24 17:35 Carbon Dioxide 27 mmol/L (22-29) 11/19/24 17:35 Anion Gap 14.2 (5-19) 11/19/24 17:35 BUN 9 mg/dL (8-23) 11/19/24 17:35 Creatinine 0.7 mg/dL (0.7-1.2) 11/19/24 17:35 GFR Calculation 112.8 mL/min (90-130) 11/19/24 17:35 Glucose 212 mg/dL (65-115) H 11/19/24 17:35 Calculated Osmolality 293 mOsm/kg (285-295) 11/19/24 17:35 Calcium 9.0 mg/dL (8.5-10.5) 11/19/24 17:35 Total Bilirubin 0.4 mg/dL (0.15-1.2) 11/19/24 17:35 AST 19 U/L (0-40) 11/19/24 17:35 ALT 18 U/L (0-41) 11/19/24 17:35 Alkaline Phosphatase 125 U/L (40-130) 11/19/24 17:35 NT-Pro-B Natriuret Pep 2778 pg/mL (0-125) H 11/19/24 17:35 Total Protein 7.6 g/dL (6.6-8.7) 11/19/24 17:35 Albumin 3.5 g/dL (3.5-5.2) 11/19/24 17:35 Globulin 4.1 g/dL (1.3-4.6) 11/19/24 17:35 Influenza A (PCR) Negative (Negative) 11/19/24 18:09 Influenza Type B (PCR) Negative (Negative) 11/19/24 18:09 RSV (PCR) Negative (Negative) 11/19/24 18:09 SARS-CoV-2 (PCR) Negative (Negative) 11/19/24 18:09 All radiology interpretation(s) finalized by discharge EKG Data EKG 1: I personally reviewed and interpreted this EKG as follows: EKG Interpretation Date: 11/19/24 EKG interpretation time: 17:25 Interpretation: nsr hr [address] elevation qrs 134 Discharge Plan Discharge Patient Disposition: Admitted As Inpatient Clinical Impression: Acute exacerbation of chronic obstructive airways disease, Pulmonary edema Condition: Stable Prescriptions: No Action budesonide 0.5 mg/2 mL suspension for nebulization 1 mg inhalation DAILY 30 Days Qty: 60 0RF (DME) D Tank with cart See Rx Instructions .Route .MEDSUPPLY Qty: 1 0RF Rx Instructions: As directed selenium 200 mcg capsule 200 mcg PO DAILY bisacodyl [Dulcolax (bisacodyl)] 5 mg tablet,delayed release (DR/EC) 5 mg PO DAILY Qty: 4 0RF Rx Instructions: take as directed for colonoscopy mupirocin 2 % ointment 1 applic topical BID 10 Days Qty: 15 0RF azithromycin 250 mg tablet See Rx Instructions PO .COMPLEX Qty: 6 0RF Rx Instructions: take 500 mg today (day 1), then 250 mg for 4 days (days 2-5) PO prednisone 20 mg tablet 20 mg PO BID 5 Days Qty: 10 0RF oxygen 2 l nasal DIRECTED 365 Days Qty: 1 0RF Rx Instructions: Should use oxygen 24/7 metoprolol tartrate 25 mg tablet 12.5 mg PO DAILY Qty: 45 3RF atorvastatin 40 mg tablet 40 mg PO BEDTIME Qty: 90 3RF Entresto 24-26 mg tablet See Rx Instructions .ROUTE .COMPLEX Qty: 180 3RF Dose Instruction: Take 1 tablet by mouth twice daily Rx Instructions: Take 1 tablet by mouth twice daily pantoprazole 40 mg tablet,delayed release (DR/EC) See Rx Instructions .ROUTE .COMPLEX Qty: 30 0RF Dose Instruction: Take 1 tablet by mouth once daily Rx Instructions: Take 1 tablet by mouth once daily Trelegy Ellipta 200-62.5-25 mcg blister with device See Rx Instructions .ROUTE .COMPLEX Qty: 60 0RF Dose Instruction: INHALE 1 PUFF ONCE DAILY Rx Instructions: INHALE 1 PUFF ONCE DAILY albuterol sulfate 90 mcg/actuation HFA aerosol inhaler See Rx Instructions .ROUTE .COMPLEX Qty: 9 0RF Dose Instruction: INHALE 1 PUFF BY MOUTH EVERY 6 HOURS NEEDED FOR SHORTNESS OF BREATH OR WHEEZING Rx Instructions: INHALE 1 PUFF BY MOUTH EVERY 6 HOURS NEEDED FOR SHORTNESS OF BREATH OR WHEEZING lamotrigine 25 mg tablet See Rx Instructions .ROUTE .COMPLEX Qty: 30 0RF Dose Instruction: Take 1 tablet by mouth once daily Rx Instructions: Take 1 tablet by mouth once daily aspirin 81 mg Capsule 81 mg PO DAILY Referrals: Tracy Keys FNP [Primary Care Provider] - Print Language: Chadian Coding Level of Care Code ED Head Of History for Moses Pineda
[2024-11-19 17:50] LABS: INR 0.94 (0.8-1.2)
[2024-11-19] MEDS: methylPREDNISolone sod succ 125 mg/2 mL INJ IVP (18:06)
[2024-11-19] MEDS: FUROsemide 10 mg/mL SDV 10mL 60 MG IVP (18:06)
[2024-11-19 18:16] LABS: Alanine Aminotransferase 18 U/L (0-41); Albumin Level 3.5 g/dL (3.5-5.2); Alkaline Phosphatase 125 U/L (40-130); Anion Gap 14.2 (5-19); Aspartate Amino Transferase 19 U/L (0-40); Blood Urea Nitrogen 9 mg/dL (8-23); Carbon Dioxide 27 mmol/L (22-29); Chloride 102 mmol/L (98-107); Globulin 4.1 g/dL (1.3-4.6); Glomerular Filtration Rate 112.8 mL/min (90-130); Glucose 212 mg/dL (65-115); NT Pro B Type Natriuretic Pept 2778 pg/mL (0-125); Osmolality Calculated 293 mOsm/kg (285-295); Potassium 4.2 mmol/L (3.5-5.1); Sodium 139 mmol/L (136-145); Total Bilirubin 0.4 mg/dL (0.15-1.2); Total Protein 7.6 g/dL (6.6-8.7)
[2024-11-19] MEDS: ipratropium-albuterol 3 mL Neb INHALATION (18:29)
[2024-11-19 18:58] LABS: Influenza A NEGATIVE (Negative); Influenza B NEGATIVE (Negative); Respiratory Syncytial Virus Ce NEGATIVE (Negative); SARS-CoV-2 PCR NEGATIVE (Negative)
--- NOTE | 2024-11-19 19:23 | P.HP_ITS ---
Providers/Chief Complaint 2 Primary Care Provider: ROSENDO Lazo Chief Complaint: SOB History of Present Illness Frantz Macias is a 64 year old male active smoker, peripheral arterial disease, smokes half a pack a day, chronic cavitary lesion, history of treatment of tuberculosis 8 years ago patient is stating that he got treatment for at least 6 months, he was put in quarantine, uses 2 to 3 L of oxygen baseline, lives with his fianc?e who presented with worsening of shortness of breath. He has not noticed any fever, chest pain, diarrhea, but endorsing worsening of shortness of breath for last few days, white-colored sputum production, does not use oxygen in the daytime continuously, uses on as-needed basis, presented in the ER with worsening of shortness of breath. He is oxygen, and has not worsened at all, I requested CT chest which showed small PE without right heart strain, patient not hemodynamically unstable, no active chest pain, patient is doing well on 3 L of oxygen, I have started him on Eliquis, chronic cavitary lesions he has CPAP antibiotics in the ER, he is afebrile without leukocytosis, switch to oral antibiotics, requested venous Doppler Review of Systems 2 Const: Reports: chills and change in weight; Denies: fever(s) Eyes: Denies: change in vision ENMT: Denies: throat pain Card: Reports: swelling of feet/ankles and dyspnea on exertion Resp: Reports: dyspnea GI: Denies: abdominal pain : Denies: flank pain Musc: Denies: neck pain Skin/Breast: Denies: rash Neuro: Reports: headache(s) Psych: Reports: anxiety Medications/Allergies Home Medications ?Medication ?Instructions ?Recorded ?Confirmed ?Last Taken ?Type budesonide 0.5 mg/2 mL suspension 1 mg (4 mL) inhalati on DAILY J44.1 08/31/22 11/18/24 02/06/23 Rx for nebulization COPD 30 days #60 mL oxygen 2 l nasal DIRECTED 365 da ys #1 11/16/22 11/18/24 12/25/22 09:00 Rx ea aspirin 81 mg capsule 81 mg PO DAILY 02/07/23 03/12/1002/07/23 05:00 History D Tank with cart #1 ea 09/08/23 11/18/24 Unkn own Rx selenium 200 mcg capsule 200 mcg PO DAILY 12/18/23 Unknown History metoprolol tartrate 25 mg tablet 12.5 mg (1/2 x 25 mg) PO DAILY #45 01/05/24 11/18/24 Unknown Rx tabs bisacodyl 5 mg tablet,delayed 5 mg PO DAILY #4 tabs 11/18/24 Unknown Rx release (Dulcolax (bisacodyl)) atorvastatin 40 mg tablet 40 mg PO BEDTIME #90 tabs 11/18/24 Unknown Rx mupirocin 2 % topical ointment 1 applic topical BID 10 days #15 06/12/24 11/18/24 Unknown Rx grams sacubitril 24 mg-valsartan 26 mg See Rx Instructions . Route 07/18/24 11/18/24 Unknown Rx tablet (Entresto) .COMPLEX #180 tabs pantoprazole 40 mg tablet,delayed See Rx Instructions .Route 10/16/24 11/18/24 Unknown Rx release .COMPLEX #30 tabs fluticasone fur. 200 mcg-umeclid See Rx Instructions . Route 10/28/24 11/18/24 Unknown Rx 62.5 mcg-vilant 25 mcg .COMPLEX #60 ea inhalat.powder (Trelegy Ellipta) albuterol sulfate 90 mcg/actuation See Rx Instructions .Route 11/08/24 11/18/24 Unknown Rx aerosol inhaler .COMPLEX #9 grams lamotrigine 25 mg tablet See Rx Instructions .Route 0 11/11/24 11/18/24 Unknown Rx .COMPLEX #30 tabs azithromycin 250 mg tablet See Rx Instructions PO .COM PLEX #6 11/19/24 11/19/24 Unknown Rx tabs prednisone 20 mg tablet 20 mg PO BID 5 days #10 tabs 11/19/24 11/19/24 Unknown Rx Allergies Allergy/AdvReac Type Severity Reaction Status Date / Time No Known Allergies Allergy Verified 11/19/24 17:21 PFSH Acute 2 PFSH: Medical History PAD (peripheral artery disease) Chronic idiopathic constipation Onychomycosis Smoking addiction Hemiparesis TIA (transient ischemic attack) COPD (chronic obstructive pulmonary disease) Seizure disorder Chronic headache disorder UTI (urinary tract infection), bacterial Seizure Family History Other Diabetes Heart disease Social History Smoking and tobacco/nicotine status: current every day tobacco/nicotine user cigarettes Packs smoked per day: 1 Years cigarettes smoked: 62 [ Other cigarette details: pt reports started fluently smoking at age 1] Alcohol intake: former Substance/Drug Use: never Adopted: No Caregiver/support person: No Lives independently: No Household members: spouse Marital status: service: No Current occupational status: disabled Sexually active: Yes Do you think of yourself as: Straight/Heterosexual Current gender identity: Male Vitals/I&O/Wt Last Vital Signs Temp 97.5 F L 11/19/24 17:15 Pulse 88 11/19/24 18:29 Resp 20 H 11/19/24 18:29 BP 142/85 11/19/24 18:09 Pulse Ox 96 11/19/24 18:29 O2 Del Method Nasal Cannula 11/19/24 18:29 O2 Flow Rate 3 11/19/24 18:29 Physical Exam 2 Narrative: Patient sitting at the bedside Active crackles with rhonchi GCS 15 AOx4 S1, S2 Currently on 3 L Mild decompensated CHF signs present 1+ edema of ankle Pedal edema Abdomen soft No active focal deficit Data 11/19/24 17:35 11/19/24 17:35 Micro: Microbiology 11/19/24 19:01 Blood Culture - Preliminary Blood SPECIMEN COLLECTED 11/19/24 17:35 Blood Culture - Preliminary Blood SPECIMEN COLLECTED A&P Assessment and plan (1) 3-vessel CAD: (2) Aortic stenosis: Qualifiers: Cardiac valve disease etiology: nonrheumatic Qualified Code(s): I35.0 - Nonrheumatic aortic (valve) stenosis (3) Pulmonary hypertension: (4) Ischemic cardiomyopathy: (5) Chronic systolic (congestive) heart failure: (6) Cardiomyopathy: (7) PAD (peripheral artery disease): (8) GERD (gastroesophageal reflux disease): (9) Pulmonary edema: (10) Pulmonary nodules/lesions, multiple: (11) Pulmonary embolism: Plan Acute COPD exacerbation Likely related to active smoking Patient has chronic cavitary lesion Patient was evaluated by marine extension agent in the past, PET scan did not show any sign of malignancy 02/07/2024 Chronic after lesion patient has been treated for TB 8 years ago when he was routine quarantine and finished 6 months treatment Not endorsing active signs of TB For dense consolidation right upper lobe I will start patient on doxycycline and ceftriaxone, previous MRSA nares negative Patient is afebrile without leukocytosis no signs of sepsis, anticipated worsening of leukocytosis with addition of steroids Patient has multiple pulmonary nodules, he has been evaluated by marine extension agent, PET scan was recommended to decide whether biopsy will be needed however as per PET scan report no signs of lucency were noted Acute pulmonary embolism No right heart strain I will start patient on Eliquis therapeutic dose Request venous Doppler Diastolic CHF exacerbation Start patient on IV diuretic regimen Diastolic dysfunction with preserve ejection fraction Patient's poor EF has improved as per the echo 04/19/2024 Patient is still on Entresto Active smoker: Smokes half a pack a day Not motivated to quit Counseling completed during admission Cardiac diet Full code DVT prophylaxis covered with Eliquis Patient will need pulmonary referral to [facility] at the time of discharge PDMP PDMP Reviewed: Not Reviewed Attestations 2 Medical Necessity Statement*: will need evaluation of COPD exacerbation anticipating discharge within 48 hours Diagnoses 3-vessel CAD I25.10 Nonrheumatic aortic valve stenosis I35.0 Cardiac valve disease etiology: nonrheumatic Pulmonary hypertension I27.20 Ischemic cardiomyopathy I25.5 Chronic systolic (congestive) heart failure I50.22 Cardiomyopathy I42.9 PAD (peripheral artery disease) I73.9 GERD (gastroesophageal reflux disease) K21.9 Pulmonary edema J81.1 Pulmonary nodules/lesions, multiple R91.8 Pulmonary embolism I26.99
[2024-11-19] MEDS: AZITHROMYCIN ADD-Vantage 500 MG in 0.9% NaCl ADD-Vantage 250 ML 250 MG IV (19:24)
[2024-11-19] MEDS: cefTRIAXone 1,000 mg SDV 1000 MG IVP (19:24)
--- NOTE | 2024-11-19 19:28 | CTR_ITS ---
PROCEDURE INFORMATION: Exam: CTA Chest With Contrast Exam date and time: 11/19/2024 7:49 PM Age: 64 years old Clinical indication: Shortness of breath; Additional info: Hypoxia TECHNIQUE: Imaging protocol: Computed tomographic angiography of the chest with contrast. Exam focused on the arteries. 3D rendering (Not supervised by radiologist): MIP and/or 3D reconstructed images were created by the technologist. Radiation optimization: All CT scans at this facility use at least one of these dose optimization techniques: automated exposure control; mA and/or kV adjustment per patient size (includes targeted exams where dose is matched to clinical indication); or iterative reconstruction. Contrast material: OMNIPAQUE 350; Contrast volume: 100 ml; Contrast route: INTRAVENOUS (IV); COMPARISON: CT angio chest PE protcl [id number] 12/26/2022 6:35 AM RADIATION DOSE METRICS: Total DLP (mGy-cm): 538.71 FINDINGS: Pulmonary arteries: There is a small soft tissue intraluminal filling defects seen in a segmental branch to the right upper lobe (series 6 images 183 to 204) suggestive of a pulmonary embolism. No other pulmonary emboli are detected. The RV/LV ratio is normal measured at 0.6. Aorta: Normal in caliber with mild atherosclerotic calcification. No aortic aneurysm. No aortic dissection. Lungs: There are emphysematous changes throughout the lungs. There is a large area of dense consolidation in the right upper lobe with central cavitation and smaller area of consolidation with central cavitation in the superior segment of the right lower lobe, new since the prior study. Multiple other scattered nodular densities are seen throughout the lungs bilaterally, several of which demonstrate central cavitation. Pleural spaces: There is a moderate-sized right pleural effusion. No significant left pleural effusion. Heart: Unremarkable. No cardiomegaly. No pericardial effusion. There is [id number] coronary arterial calcification. Lymph nodes: There are mildly enlarged mediastinal and bilateral hilar lymph nodes, increased since the prior study. Bones/joints: Unremarkable. No acute fracture. There are degenerative changes involving the thoracic spine. Soft tissues: Unremarkable. CT/CT angio chest PE protcl [id number] IMPRESSION: 1. Dense consolidation in the right upper lobe with central cavitation and several smaller cavitating and non cavitating nodules throughout the lungs bilaterally, new since December 26, 2022. Findings could represent multifocal pneumonia versus malignancy. Please correlate clinically. 2. Moderate sized right pleural effusion. 3. Small pulmonary embolism seen in a segmental artery to the right upper lobe. Normal RV/LV ratio. 4. COPD. 5. Mild mediastinal and bilateral hilar lymphadenopathy, increased since the prior study. COMMENTS: The presence of pulmonary emphysema on CT is an independent risk factor for lung cancer. In the absence of a history or active diagnosis of lung cancer, it is recommended that this patient with emphysema be evaluated for enrollment in a low dose CT lung cancer screening program.
[2024-11-19] MEDS: iohexol 350 mg/mL 500 mL Btl (per mL) IV (19:51)
[2024-11-19] MEDS: heparin 5,000 unit/mL INJ 1 mL 5000 UNIT SUBCUT (20:32)
[2024-11-19] MEDS: doxycycline 100 mg Tablet PO (22:53)
[2024-11-19] MEDS: metoprolol tartrate 25 mg Tablet 12.5 MG PO (22:54)
[2024-11-19] MEDS: sacubitril/valsartan 24-26 mg Tablet 1 EACH PO (22:54)
[2024-11-19] MEDS: pantoprazole DR 40 mg Tablet PO (22:54)
[2024-11-20] VITALS (8 sets, daily range): BP systolic 103–147; BP diastolic 55–77; PULSE 71–88; RESP 16–20; TEMP 36.4–36.6; O2SAT 96–99
[2024-11-20 05:35] LABS: Basophils % 0.2 %; Hematocrit 37.9 % (37-53); Lymphocytes # 1.7 10^3/uL (0.8-4.8); Lymphocytes % 19.2 %; Mean Corpuscular HGB Conc 31.1 g/dL (30-55); Mean Corpuscular Hemoglobin 27.9 pg (27-33); Mean Corpuscular Volume 89.6 fl (82-101); Mean Platelet Volume 9.6 fL (7.4-10.4); Monocytes # 0.2 10^3/uL (0.2-0.9); Monocytes % 1.7 %; Neutrophils # 6.89 10^3/uL (1.8-7.7); Neutrophils % 78.4 %; Nucleated Red Blood Cells % 0 %; Platelet Count 358 10^3/cmm (157-399); Red Blood Count 4.23 10^6/uL (3.85-5.65); Red Cell Distribution Width 14.2 % (12.1-15.1); White Blood Count 8.79 10^3/uL (3.29-11.43)
[2024-11-20 06:01] LABS: Anion Gap 15.2 (5-19); Blood Urea Nitrogen 10 mg/dL (8-23); Calcium 9.3 mg/dL (8.5-10.5); Carbon Dioxide 28 mmol/L (22-29); Chloride 103 mmol/L (98-107); Glomerular Filtration Rate 96.7 mL/min (90-130); Glucose 180 mg/dL (65-115); Osmolality Calculated 298 mOsm/kg (285-295); Potassium 4.2 mmol/L (3.5-5.1); Sodium 142 mmol/L (136-145)
--- NOTE | 2024-11-20 08:44 | PC.CHAP ---
Pastoral Care Encounter/Spiritual Assessment Type of Contact [] Declined boarding specialist visit [] Patient/Family/Request visit [] Outpatient visit [] Follow-up visit [] Physician referral [] Code/Alert [x] Routine visit [] Staff referral [] Actively dying [] Patient sleeping [] Family support [] [] Out of room [] Palliative care [] [] Receiving care in room [] Pre-surgical visit [] Trauma [] Long length of stay [] ICU visit [] Other: Relational/Emotional Strength [x] Patient feels connected with others/family/visitors/staff [] Distress [] Loneliness/isolation [] Abandonment Spirituality of Patient [x] Person of Donna [] Attends Catholic of their Donna [x] Believes in Prayer [] Reads Bible or Buddhism materials [] There are Spiritual issues to be addressed Applications Packager Interventions [x] Prayer [x] Active listening [] Non-anxious presence [x] Spiritual/emotional support [] Crisis/trauma care [] Spiritual counseling [] Bereavement support [] Provided bereavement packet [] Provided Bible/devotional materials [] Provided toy/stuffed animal, coloring book to patient or family member [] Provided Communion [] Anointing/[place] [] Salvation [x] Completed spiritual assessment [] Other: Impact on Illness or Injury [] Angry [] Fearful [] Anxious [] Often cries [] Exhaustion [] Unable to work [] Unable to attend pentecostalism [] Unable to walk/stand [] Unable to read [] Unable to drive [] Unable to eat/drink [] Unable to sleep [] Unable to be with family [] Patient intubated [] Other: Summary Time spent with patient 5 min
[2024-11-20] MEDS: pantoprazole DR 40 mg Tablet PO (08:46)
[2024-11-20] MEDS: apixaban 5 mg Tablet 10 MG PO (08:46)
[2024-11-20] MEDS: sennosides-docusate Tablet 1 TAB PO (08:46)
[2024-11-20] MEDS: sacubitril/valsartan 24-26 mg Tablet 1 EACH PO ×2 (08:47→17:04)
[2024-11-20] MEDS: FUROsemide 10 mg/mL SDV 4mL 40 MG IVP (08:47)
[2024-11-20] MEDS: aspirin 81 mg EC Tablet PO (08:47)
[2024-11-20] MEDS: doxycycline 100 mg Tablet PO (08:47)
[2024-11-20] MEDS: cefTRIAXone 2,000 mg SDV 2000 MG IVP (08:49)
[2024-11-20] MEDS: methylPREDNISolone sod succ 40 mg/mL INJ 30 MG IVP (08:50)
[2024-11-20] MEDS: metoprolol tartrate 25 mg Tablet 12.5 MG PO ×2 (08:51→23:38)
[2024-11-20] MEDS: sodium chloride 3.5% neb 4 mL Neb INHALATION (12:34)
--- NOTE | 2024-11-20 15:21 | P.PN_ITS ---
Subjective 2 Subjective: Patient states he has been having increasing shortness of breath over the past 1 to 2 weeks. Chart was extensively reviewed and information additionally obtained from health department. Please see details below. Medications: Reviewed: Yes Vitals/I&O/Wt Last Vital Signs Temp 97.5 F L 11/20/24 11:37 Pulse 76 11/20/24 11:37 Resp 20 H 11/20/24 11:37 BP 146/77 11/20/24 11:37 Pulse Ox 98 11/20/24 11:37 O2 Del Method Nasal Cannula 11/20/24 11:37 O2 Flow Rate 3 11/20/24 03:37 11/20/24 11/20/24 11/20/24 06:59 14:59 22:59 Intake Total 650 / 900 600 / 600 Balance 650 / 900 600 / 600 Weight last 48 hrs Weight 87.407 kg Weight 93.894 kg Physical Exam 2 Narrative: General: No acute distress, AO x3 HEENT: PERRLA, pupils bilaterally equal and reactive, pallors not present Chest: Normal vesicular breath sounds, no added sounds, equal good air entry bilaterally CVS: S1-S2 regular, no murmurs, no tachycardia, no gallops, no rubs Abdomen: Soft, nontender, no organomegaly, bowel sounds present Neuro: No focal deficits, no facial deformity, AO x3, power 5/5 in all limbs Data 11/20/24 04:28 11/20/24 04:28 Micro: Microbiology 11/19/24 19:01 Blood Culture - Preliminary Blood SPECIMEN COLLECTED 11/19/24 17:35 Blood Culture - Preliminary Blood SPECIMEN COLLECTED A&P Assessment and plan (1) 3-vessel CAD: (2) Aortic stenosis: Qualifiers: Cardiac valve disease etiology: nonrheumatic Qualified Code(s): I35.0 - Nonrheumatic aortic (valve) stenosis (3) Pulmonary hypertension: (4) Ischemic cardiomyopathy: (5) Chronic systolic (congestive) heart failure: (6) Cardiomyopathy: (7) PAD (peripheral artery disease): (8) GERD (gastroesophageal reflux disease): (9) Pulmonary edema: (10) Pulmonary nodules/lesions, multiple: (11) Pulmonary embolism: (12) Cavitary pneumonia: Plan Acute COPD exacerbation Likely related to active smoking Patient has chronic cavitary lesion Patient was evaluated by business economist in the past, PET scan did not show any sign of malignancy 02/07/2024 Chronic after lesion patient has been treated for TB 8 years ago when he was routine quarantine and finished 6 months treatment Not endorsing active signs of TB For dense consolidation right upper lobe I will start patient on doxycycline and ceftriaxone, previous MRSA nares negative Patient is afebrile without leukocytosis no signs of sepsis, anticipated worsening of leukocytosis with addition of steroids Patient has multiple pulmonary nodules, he has been evaluated by business economist, PET scan was recommended to decide whether biopsy will be needed however as per PET scan report no signs of lucency were noted Acute pulmonary embolism No right heart strain I will start patient on Eliquis therapeutic dose Request venous Doppler Diastolic CHF exacerbation Start patient on IV diuretic regimen Diastolic dysfunction with preserve ejection fraction Patient's poor EF has improved as per the echo 04/19/2024 Patient is still on Entresto Active smoker: Smokes half a pack a day Not motivated to quit Counseling completed during admission Cardiac diet Full code DVT prophylaxis covered with Eliquis Patient will need pulmonary referral to [facility] at the time of discharge November 20, 2024 CTA imaging from overnight was reviewed and personally compared to CTA imaging from December 2023 and PET scan from January 2024. Patient has dense consolidation in the right upper lobe with central cavitation and several small cavitating lesions throughout both the lungs, more predominant on the right side. These changes are all new and very extensive compared to December 2022. Additionally has a moderate size right pleural effusion and mediastinal and bilateral hilar lymphadenopathy. Cavitary changes were not present on CT dating back to January 2024. PET/CT from January 2024 was without evidence of malignancy. At that time there were noted to be lung nodules, more predominant on the left side and right side nodules were not seen. I have additionally reviewed CT of the abdomen and pelvis performed in April 2024 which visualized the dependent parts of the lungs. No cavitary changes were noted at that time on the CT. Therefore these changes do appear to be new and quite extensive when compared to 2022 in 2023. 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 On asking further details, he reveals that he was told he has TB based on a positive PPD skin test. Thereafter he was recommended 1 pill a day for the next 6 months. I was suspicious that he is in referring to treatment for latent TB and not active TB and call was placed to [facility] to confirm the same. Patient does not understand the difference between latent TB and active TB. The health department was able to confirm that patient was treated for LTBI with 9 months of isoniazid in 2003. He has not been diagnosed with active TB at any point as far as the public health records show. With his background of COPD and currently seen new active cavitary disease and consolidation, the differentials are broad at this time however TB remains a strong consideration. Will place him on TB airborne isolation. MTB PCR and sputum AFB smear was induced and sent to the health department for testing at the state lab today. We will additionally collect 2 more specimens over the next 2 days and send it to the health department for further testing. Other differentials at this time include cavitary pneumonia from bacterial infection such as Pseudomonas or MRSA. Will check sputum culture and Gram stain. Change antibiotic coverage to cefepime. Check MRSA nasal screen. Past sputum culture has shown Stenotrophomonas maltophilia. Will add levofloxacin once sputum TB specimens have been collected. Possibility of fungal infection not excluded, check histoplasma serology, histoplasma urine antigen, Coccidioides serology, Blastomyces serology, serum beta glucan and Aspergillus galactomannan antigen.. Patient has been a lifelong resident of [place]. If peripheral workup remains unrevealing, patient would likely need to be referred to pulmonology for a bronchoscopy for further diagnostics. Will additionally attempt to obtain ultrasound-guided thoracentesis to aid in diagnostics. Cytology will additonally be obtained. Unable to perform thoracentesis today as he has had loading dose of Eliquis 10 mg this morning. Will switch to heparin anticoagulation with the aim of being able to perform a diagnostic thoracentesis 48 hours after the last dose of Eliquis. Malignancy remains on the differential, thought PET scan from 01/2024 was without any evidence of the same. Currently worsened hypoxic respiratory failure is likely related to cavitary pneumonia as noted on CT scan and a combination of PE. Currently he is appearing to be euvolemic. Will hold further diuresis. Echocardiogram is showing normal LVEF systolic function and wall thickness without regional wall motion abnormalities. Estimated LVEF of 55%. grade 1 diastolic dysfunction noted. No pericardial effusion. PDMP PDMP Reviewed: Not Reviewed Attestations 2 Medical Necessity Statement*: change to inpatient admission,needs to be evaluated further for new cavitary pneumonia Coding Level of Care Code Acute Code for Chg Fwd High MDM includes number and complexity of problems actively addressed during encounter, amount and/or complexity of data reviewed/ordered and described risk of complication, morbidity or mortality of management as documented Diagnoses 3-vessel CAD I25.10 Nonrheumatic aortic valve stenosis I35.0 Cardiac valve disease etiology: nonrheumatic Pulmonary hypertension I27.20 Ischemic cardiomyopathy I25.5 Chronic systolic (congestive) heart failure I50.22 Cardiomyopathy I42.9 PAD (peripheral artery disease) I73.9 GERD (gastroesophageal reflux disease) K21.9 Pulmonary edema J81.1 Pulmonary nodules/lesions, multiple R91.8 Pulmonary embolism I26.99 Cavitary pneumonia J18.9; J98.4
[2024-11-20] MEDS: lamoTRIgine 25 mg Tablet PO (17:04)
[2024-11-20] MEDS: piperacillin-tazobactam 3.375 GM in sodium chloride 0.9% (plus) 50 ML IV (17:05)
[2024-11-20 17:12] LABS: Lactate Dehydrogenase 145 U/L (135-225)
[2024-11-20 18:49] LABS: MRSA PCR OZH (swab) NOT DETECTED (Negative)
[2024-11-20] MEDS: budesonide 0.5 mg/2 mL Neb INHALATION (20:54)
[2024-11-20] MEDS: ipratropium-albuterol 3 mL Neb INHALATION (20:54)
--- NOTE | 2024-11-20 21:46 | USCV_ITS ---
Gilberto Frantz Age: 64 Gender: M : 1960 Exam Date: 11/20/2024 01:59 Ordering Phys: Wilma Weber MD Technologist: JEREMY [place] [facility] [place]: pulmonary embolism, swelling. SOB, hx PAD, long- term smoker continues smoking, O2-dependent 2-3L HISTORY: pulmonary embolism, swelling. SOB, hx PAD, long-term smoker continues smoking, O2-dependent 2-3L PROCEDURES: Venous duplex imaging was performed in bilateral lower extremities. The following venous structures were evaluated: common femoral vein, profunda vein, proximal portion of the greater saphenous vein, superficial femoral vein, and the popliteal vein. In addition, the posterior tibial and peroneal veins were evaluated. FINDINGS: Normal 2-D Doppler and augmentation and compressibility throughout the lower extremity venous structures. Additional imaging through the proximal calf veins also reveals no thrombus. Limited evaluation of the greater saphenous vein is patent with no thrombus. CONCLUSIONS No DVT bilateral lower extremities. Dr. Stephanie Miles DO (Electronically Signed) Final Date: 20 November 2024 08:47 S
[2024-11-20 21:48] LABS: Partial Thromboplastin Time 29.3 SECONDS (23.9-36.7)
--- NOTE | 2024-11-20 21:59 | USCV_ITS ---
Frantz Macias Age: 64 Gender: M : 1960 Exam Date: 11/20/2024 01:46 Ordering Phys: Wilma Weber MD Technologist: JREEMY [place] [facility] [place]ication: pulmonary embolism, SOB, hx PAD, long-term smoker, continues smoking, O2 dependent 2-3L. BP: 152 / 80 HR: 76 Rhythm: Sinus Technical Quality: Adequate MEASUREMENTS (Male / Female) Normal Values 2D ECHO LV Diastolic Diameter PLAX 5.2 cm 4.2 - 5.9 / 3.9 - 5.3 cm IVS Diastolic Thickness 1.4 cm 0.6 - 1.0 / 0.6 - 0.9 cm LVPW Diastolic Thickness 1.2 cm 0.6 - 1.0 / 0.6 - 0.9 cm LVOT Diameter 2.3 cm LV Ejection Fraction MOD 4C 51.9 % LV Ejection Fraction MOD 2C 54.4 % LV Ejection Fraction 2C AL 54.5 % LA Diameter 4.0 cm Aorta at Sinotubular Diameter 2.6 cm IVC Diameter 1.1 cm M-MODE LA Ao Ratio MM 1.5 AV Cusp Separation MM 1.7 cm DOPPLER AV Peak Velocity 243.0 cm/s LVOT Peak Velocity 72.0 cm/s AV Area Cont Eq vti 1.0 cm squared AV Area Cont Eq pk 1.2 cm squared MV Peak Velocity 117.0 cm/s MV Area PHT 4.2 cm squared Mitral E to A Ratio 0.7 TV Peak E Velocity 58.0 cm/s PV Peak Velocity 116.0 cm/s FINDINGS Left Ventricle Normal left ventricular size, systolic function and wall thickness, with no regional wall motion abnormalities. Left ventricular ejection fraction is estimated at 55%. Grade I/IV diastolic dysfunction (abnormal relaxation filling pattern), normal to mildly elevated filling pressures. Right Ventricle The right ventricle is normal in size and function. Right Atrium The right atrium is normal in size. Left Atrium The left atrium is normal in size. Mitral Valve Mildly thickened mitral valve. No mitral valve stenosis. Mild mitral valve regurgitation. Aortic Valve Moderate aortic valve calcification. Moderate aortic valve stenosis, mean gradient 13 mmHg, MARIA ELENA 1 cm squared. Trace aortic valve regurgitation. Tricuspid Valve Structurally normal tricuspid valve without significant stenosis or regurgitation. Pulmonary artery systolic pressure is normal. Pulmonic Valve Trace pulmonary valve regurgitation. Pericardium Normal pericardium without effusion. Aorta Normal ascending aorta dimension. IVC The inferior vena cava appears normal. CONCLUSIONS Normal left ventricular size, systolic function and wall thickness, with no regional wall motion abnormalities. Left ventricular ejection fraction is estimated at 55%. Grade I/IV diastolic dysfunction (abnormal relaxation filling pattern), normal to mildly elevated filling pressures. Mildly thickened mitral valve. No mitral valve stenosis. Mild mitral valve regurgitation. There is no pericardial effusion. Right atrial pressure is around 5 mm of mercury. Wilma Miles MD (Electronically Signed) Final Date: 20 November 2024 12:38 S
[2024-11-20] MEDS: heparin 5,000 unit/mL INJ 1 mL IVP (23:31)
[2024-11-20] MEDS: heparin drip 25,000 UNIT/500 ML PREMIX 25 UNIT IV (23:33)
[2024-11-20] MEDS: atorvastatin 40 mg Tablet PO (23:39)
[2024-11-21] VITALS (11 sets, daily range): BP systolic 113–153; BP diastolic 55–88; PULSE 70–102; RESP 16–19; TEMP 36.4–36.9; O2SAT 94–99
[2024-11-21] MEDS: ipratropium-albuterol 3 mL Neb INHALATION ×4 (02:33→19:25)
[2024-11-21] MEDS: piperacillin-tazobactam 3.375 GM in sodium chloride 0.9% (plus) 50 ML IV ×3 (05:13→20:32)
[2024-11-21 07:55] LABS: Basophils % 0.1 %; Hematocrit 42.8 % (37-53); Lymphocytes # 4.7 10^3/uL (0.8-4.8); Lymphocytes % 25.8 %; Mean Corpuscular HGB Conc 30.8 g/dL (30-55); Mean Corpuscular Hemoglobin 27.7 pg (27-33); Mean Corpuscular Volume 89.7 fl (82-101); Mean Platelet Volume 9.7 fL (7.4-10.4); Monocytes # 0.9 10^3/uL (0.2-0.9); Monocytes % 4.7 %; Neutrophils # 12.64 10^3/uL (1.8-7.7); Nucleated Red Blood Cells % 0 %; Platelet Count 389 10^3/cmm (157-399); Red Blood Count 4.77 10^6/uL (3.85-5.65); Red Cell Distribution Width 14.2 % (12.1-15.1); White Blood Count 18.33 10^3/uL (3.29-11.43)
[2024-11-21 08:15] LABS: Alanine Aminotransferase 16 U/L (0-41); Albumin Level 3.4 g/dL (3.5-5.2); Alkaline Phosphatase 106 U/L (40-130); Anion Gap 12.1 (5-19); Aspartate Amino Transferase 15 U/L (0-40); Blood Urea Nitrogen 18 mg/dL (8-23); Calcium 9.2 mg/dL (8.5-10.5); Carbon Dioxide 32 mmol/L (22-29); Chloride 101 mmol/L (98-107); Glomerular Filtration Rate 96.7 mL/min (90-130); Glucose 113 mg/dL (65-115); Osmolality Calculated 295 mOsm/kg (285-295); Potassium 4.1 mmol/L (3.5-5.1); Sodium 141 mmol/L (136-145); Total Bilirubin 0.3 mg/dL (0.15-1.2); Total Protein 7.4 g/dL (6.6-8.7)
[2024-11-21] MEDS: budesonide 0.5 mg/2 mL Neb INHALATION ×2 (08:22→19:24)
--- NOTE | 2024-11-21 09:20 | PC.NURSE ---
pt have procedure 11/22, gave verbal to hold aspirin dose
[2024-11-21] MEDS: sennosides-docusate Tablet 1 TAB PO (09:29)
[2024-11-21] MEDS: metoprolol tartrate 25 mg Tablet 12.5 MG PO ×2 (09:30→20:29)
[2024-11-21] MEDS: pantoprazole DR 40 mg Tablet PO (09:30)
[2024-11-21] MEDS: sacubitril/valsartan 24-26 mg Tablet 1 EACH PO ×2 (09:30→17:00)
[2024-11-21] MEDS: methylPREDNISolone sod succ 40 mg/mL INJ IVP (09:31)
[2024-11-21] MEDS: lamoTRIgine 25 mg Tablet PO (09:33)
[2024-11-21 12:29] LABS: HIV 1 & 2 Antibody Non-Reactive (Non-Reactiv); HIV 1 & 2 Antigen Non-Reactive (Non-Reactiv)
[2024-11-21] MEDS: FUROsemide 10 mg/mL SDV 4mL 40 MG IVP (13:47)
[2024-11-21] MEDS: pyridoxine 50 mg Tablet PO (13:47)
[2024-11-21] MEDS: rifAMPin 300 mg Capsule 600 MG PO (13:47)
--- NOTE | 2024-11-21 14:28 | P.PN_ITS ---
Subjective 2 Subjective: Sputum AFB smear returned 3+ positive from the health department. Pending MTB PCR, hopefully results will be available this afternoon. With positive AFB smear and consistent CT findings will begin treatment for pulmonary tuberculosis. Medications: Reviewed: Yes Vitals/I&O/Wt Last Vital Signs Temp 97.5 F L 11/21/24 10:55 Pulse 77 11/21/24 13:53 Resp 16 11/21/24 13:53 BP 121/67 11/21/24 10:55 Pulse Ox 97 11/21/24 13:53 O2 Del Method Nasal Cannula 11/21/24 13:53 O2 Flow Rate 3 11/21/24 13:53 11/20/24 11/21/24 11/21/24 22:59 06:59 14:59 Intake Total 480 / 1080 705 / 1785 410 / 410 Balance 480 / 1080 705 / 1785 410 / 410 Weight last 48 hrs Weight 87.226 kg Weight 87.407 kg Weight 93.894 kg Physical Exam 2 Narrative: General: No acute distress, AO x3 HEENT: PERRLA, pupils bilaterally equal and reactive, pallors not present Chest: Normal vesicular breath sounds, no added sounds, equal good air entry bilaterally CVS: S1-S2 regular, no murmurs, no tachycardia, no gallops, no rubs Abdomen: Soft, nontender, no organomegaly, bowel sounds present Neuro: No focal deficits, no facial deformity, AO x3, power 5/5 in all limbs Data 11/21/24 07:16 11/21/24 07:16 Micro: Microbiology 11/20/24 16:35 Gram Stain - Final Sputum - Expectorated Sputum Sputum Culture - Preliminary Gram Negative Rods 11/19/24 19:01 Blood Culture - Preliminary Blood NEGATIVE TO DATE 11/19/24 17:35 Blood Culture - Preliminary Blood NEGATIVE TO DATE A&P Assessment and plan (1) 3-vessel CAD: (2) Aortic stenosis: Qualifiers: Cardiac valve disease etiology: nonrheumatic Qualified Code(s): I35.0 - Nonrheumatic aortic (valve) stenosis (3) Pulmonary hypertension: (4) Ischemic cardiomyopathy: (5) Chronic systolic (congestive) heart failure: (6) Cardiomyopathy: (7) PAD (peripheral artery disease): (8) GERD (gastroesophageal reflux disease): (9) Pulmonary edema: (10) Pulmonary nodules/lesions, multiple: (11) Pulmonary embolism: (12) Cavitary pneumonia: (13) Pulmonary tuberculosis: (14) Pleural effusion: Plan Acute COPD exacerbation Likely related to active smoking Patient has chronic cavitary lesion Patient was evaluated by order management specialist in the past, PET scan did not show any sign of malignancy 02/07/2024 Chronic after lesion patient has been treated for TB 8 years ago when he was routine quarantine and finished 6 months treatment Not endorsing active signs of TB For dense consolidation right upper lobe I will start patient on doxycycline and ceftriaxone, previous MRSA nares negative Patient is afebrile without leukocytosis no signs of sepsis, anticipated worsening of leukocytosis with addition of steroids Patient has multiple pulmonary nodules, he has been evaluated by order management specialist, PET scan was recommended to decide whether biopsy will be needed however as per PET scan report no signs of lucency were noted Acute pulmonary embolism No right heart strain I will start patient on Eliquis therapeutic dose Request venous Doppler Diastolic CHF exacerbation Start patient on IV diuretic regimen Diastolic dysfunction with preserve ejection fraction Patient's poor EF has improved as per the echo 04/19/2024 Patient is still on Entresto Active smoker: Smokes half a pack a day Not motivated to quit Counseling completed during admission Cardiac diet Full code DVT prophylaxis covered with Eliquis Patient will need pulmonary referral to [place] at the time of discharge November 20, 2024 CTA imaging from overnight was reviewed and personally compared to CTA imaging from December 2023 and PET scan from January 2024. Patient has dense consolidation in the right upper lobe with central cavitation and several small cavitating lesions throughout both the lungs, more predominant on the right side. These changes are all new and very extensive compared to December 2022. Additionally has a moderate size right pleural effusion and mediastinal and bilateral hilar lymphadenopathy. Cavitary changes were not present on CT dating back to January 2024. PET/CT from January 2024 was without evidence of malignancy. At that time there were noted to be lung nodules, more predominant on the left side and right side nodules were not seen. I have additionally reviewed CT of the abdomen and pelvis performed in April 2024 which visualized the dependent parts of the lungs. No cavitary changes were noted at that time on the CT. Therefore these changes do appear to be new and quite extensive when compared to 2022 in 2023. 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 On asking further details, he reveals that he was told he has TB based on a positive PPD skin test. Thereafter he was recommended 1 pill a day for the next 6 months. I was suspicious that he is in referring to treatment for latent TB and not active TB and call was placed to [facility] to confirm the same. Patient does not understand the difference between latent TB and active TB. The health department was able to confirm that patient was treated for LTBI with 9 months of isoniazid in 2003. He has not been diagnosed with active TB at any point as far as the public health records show. With his background of COPD and currently seen new active cavitary disease and consolidation, the differentials are broad at this time however TB remains a strong consideration. Will place him on TB airborne isolation. MTB PCR and sputum AFB smear was induced and sent to the health department for testing at the [facility] today. We will additionally collect 2 more specimens over the next 2 days and send it to the health department for further testing. Other differentials at this time include cavitary pneumonia from bacterial infection such as Pseudomonas or MRSA. Will check sputum culture and Gram stain. Change antibiotic coverage to cefepime. Check MRSA nasal screen. Past sputum culture has shown Stenotrophomonas maltophilia. Will add levofloxacin once sputum TB specimens have been collected. Possibility of fungal infection not excluded, check histoplasma serology, histoplasma urine antigen, Coccidioides serology, Blastomyces serology, serum beta glucan and Aspergillus galactomannan antigen.. Patient has been a lifelong resident of [place]. If peripheral workup remains unrevealing, patient would likely need to be referred to pulmonology for a bronchoscopy for further diagnostics. Will additionally attempt to obtain ultrasound-guided thoracentesis to aid in diagnostics. Cytology will additonally be obtained. Unable to perform thoracentesis today as he has had loading dose of Eliquis 10 mg this morning. Will switch to heparin anticoagulation with the aim of being able to perform a diagnostic thoracentesis 48 hours after the last dose of Eliquis. Malignancy remains on the differential, thought PET scan from 01/2024 was without any evidence of the same. Currently worsened hypoxic respiratory failure is likely related to cavitary pneumonia as noted on CT scan and a combination of PE. Currently he is appearing to be euvolemic. Will hold further diuresis. Echocardiogram is showing normal LVEF systolic function and wall thickness without regional wall motion abnormalities. Estimated LVEF of 55%. grade 1 diastolic dysfunction noted. No pericardial effusion. November 21, 2024 Results available from the health department show patient has AFB smear positive 3+ mycobacteria. Based on classical CT findings of cavitary lung disease, past history of LTBI, high suspicion for TB reactivation and active pulmonary tuberculosis. Continue isolation precautions. Start antitubercular therapy with rifampin 600 mg p.o. daily, isoniazid 300 mg p.o. daily, pyrazinamide 1500mg daily and ethambutol 1200mg po daily with B6 50mg po daily. Awaiting MTB PCR to return from the health department. Second specimen collected today. MAC remains on the differential. Sputum culture taken here growing gram-negative rods. Continue piperacillin/tazobactam for empiric coverage. Lasix 40mg iv today, patient is noted to be more dyspneic today compared to yesterday, continue iv steroids and scheduled nebulization. Continue heparin drip, hold at [facility] for planned thoracentesis tomorrow. PDMP PDMP Reviewed: Not Reviewed Attestations 2 Medical Necessity Statement*: high probbaility of pulmonary TB, continue isolation precautions and start RIPE therapy Coding Level of Care Code Acute Code for g Fwd Diagnoses 3-vessel CAD I25.10 Nonrheumatic aortic valve stenosis I35.0 Cardiac valve disease etiology: nonrheumatic Pulmonary hypertension I27.20 Ischemic cardiomyopathy I25.5 Chronic systolic (congestive) heart failure I50.22 Cardiomyopathy I42.9 PAD (peripheral artery disease) I73.9 GERD (gastroesophageal reflux disease) K21.9 Pulmonary edema J81.1 Pulmonary nodules/lesions, multiple R91.8 Pulmonary embolism I26.99 Cavitary pneumonia J18.9; J98.4 Pulmonary tuberculosis A15.0 Pleural effusion J90
--- NOTE | 2024-11-21 15:05 | PC.NURSE ---
Radiology notified that thoracentesis needs to be completed before 12 so specimen can go to the Health Department.
[2024-11-21] MEDS: atorvastatin 40 mg Tablet PO (20:29)
[2024-11-21 20:42] LABS: INR 1.05 (0.8-1.2)
[2024-11-21 21:19] LABS: Partial Thromboplastin Time 36.8 SECONDS (23.9-36.7)
[2024-11-22] VITALS (10 sets, daily range): BP systolic 94–146; BP diastolic 54–76; PULSE 74–95; RESP 16–18; TEMP 36.3–36.7; O2SAT 91–99
[2024-11-22] MEDS: ipratropium-albuterol 3 mL Neb INHALATION ×3 (02:23→13:35)
[2024-11-22] MEDS: heparin drip 25,000 UNIT/500 ML PREMIX 29 UNIT IV (04:14)
[2024-11-22] MEDS: piperacillin-tazobactam 3.375 GM in sodium chloride 0.9% (plus) 50 ML IV ×2 (04:56→10:40)
[2024-11-22 05:08] LABS: Basophils % 0.1 %; Hematocrit 39.3 % (37-53); Lymphocytes # 3.1 10^3/uL (0.8-4.8); Lymphocytes % 22.4 %; Mean Corpuscular HGB Conc 30.8 g/dL (30-55); Mean Corpuscular Hemoglobin 27.5 pg (27-33); Mean Corpuscular Volume 89.3 fl (82-101); Mean Platelet Volume 9.5 fL (7.4-10.4); Monocytes # 0.8 10^3/uL (0.2-0.9); Monocytes % 5.3 %; Neutrophils # 10.07 10^3/uL (1.8-7.7); Neutrophils % 71.8 %; Nucleated Red Blood Cells % 0 %; Platelet Count 354 10^3/cmm (157-399); Red Cell Distribution Width 14.4 % (12.1-15.1); White Blood Count 14.03 10^3/uL (3.29-11.43)
[2024-11-22 05:30] LABS: Partial Thromboplastin Time 111.8 SECONDS (23.9-36.7)
[2024-11-22 06:00] LABS: Alanine Aminotransferase 16 U/L (0-41); Albumin Level 3.2 g/dL (3.5-5.2); Alkaline Phosphatase 90 U/L (40-130); Anion Gap 14.8 (5-19); Aspartate Amino Transferase 16 U/L (0-40); Blood Urea Nitrogen 23 mg/dL (8-23); Calcium 8.8 mg/dL (8.5-10.5); Carbon Dioxide 29 mmol/L (22-29); Chloride 102 mmol/L (98-107); Globulin 3.5 g/dL (1.3-4.6); Glucose 123 mg/dL (65-115); Osmolality Calculated 299 mOsm/kg (285-295); Potassium 3.8 mmol/L (3.5-5.1); Sodium 142 mmol/L (136-145); Total Bilirubin 0.5 mg/dL (0.15-1.2); Total Protein 6.7 g/dL (6.6-8.7)
[2024-11-22 06:26] LABS: Uric Acid 6.9 mg/dL (3.4-7.0)
[2024-11-22 06:56] LABS: Hepatitis A Antibody IgM Non-Reactive (Nonreactive); Hepatitis B Core AB, Total Non-Reactive (Nonreactive); Hepatitis B Surface AB < 3.5 (11.5-1000); Hepatitis B Surface Antigen Non-Reactive (Nonreactive); Hepatitis C Virus Antibody Non-Reactive (Nonreactive)
[2024-11-22] MEDS: budesonide 0.5 mg/2 mL Neb INHALATION (07:51)
[2024-11-22] MEDS: methylPREDNISolone sod succ 40 mg/mL INJ IVP (08:58)
[2024-11-22] MEDS: pantoprazole DR 40 mg Tablet PO (08:58)
[2024-11-22] MEDS: sacubitril/valsartan 24-26 mg Tablet 1 EACH PO (08:58)
[2024-11-22] MEDS: lamoTRIgine 25 mg Tablet PO (08:59)
[2024-11-22] MEDS: aspirin 81 mg EC Tablet PO (08:59)
[2024-11-22] MEDS: sennosides-docusate Tablet 1 TAB PO (08:59)
[2024-11-22] MEDS: rifAMPin 300 mg Capsule 600 MG PO (09:00)
[2024-11-22] MEDS: azithromycin 250 mg Tablet 500 MG PO (09:01)
[2024-11-22] MEDS: metoprolol tartrate 25 mg Tablet 12.5 MG PO (09:03)
--- NOTE | 2024-11-22 10:09 | PC.SOCIAL ---
IMM Updated Updated pt on IMM. No questions voiced. Provided pt a copy. Initialed, dated, & timed a copy & placed in chart.
[2024-11-22 15:05] LABS: Partial Thromboplastin Time 69.1 SECONDS (23.9-36.7)
--- NOTE | 2024-11-22 15:52 | P.DS_ITS ---
Discharge Providers Date of Admission: 11/20/24 11:41 Date of Discharge: November 22, 2024 Attending Provider at Admission: Stella Myers MD Attending Provider at Discharge: Gill Lamar MD Primary Care Provider: ROSENDO Lazo Diagnoses at Discharge Discharge Diagnosis (1) 3-vessel CAD: Status: Acute (2) Aortic stenosis: Status: Acute Qualifiers: Cardiac valve disease etiology: nonrheumatic Qualified Code(s): I35.0 - Nonrheumatic aortic (valve) stenosis (3) Pulmonary hypertension: Status: Acute (4) Ischemic cardiomyopathy: Status: Acute Permanent problem details: Patient refused Life Vest or ICD (5) Chronic systolic (congestive) heart failure: Status: Acute (6) Cardiomyopathy: Status: Acute (7) PAD (peripheral artery disease): Status: Acute (8) GERD (gastroesophageal reflux disease): Status: Acute (9) Pulmonary edema: Status: Acute (10) Pulmonary nodules/lesions, multiple: Status: Acute (11) Pulmonary embolism: Status: Acute (12) Cavitary pneumonia: Status: Acute (13) Pulmonary tuberculosis: Status: Acute (14) Pleural effusion: Status: Acute Reason for Visit Reason for Visit: SOB Hospital Course Hospital Course 64 year old male active smoker, peripheral arterial disease, presented to the hospital with chief complaints of worsening shortness of breath over the past few weeks. CTA imaging of the chest was positive for pulmonary embolism. Additionally noted to have dense consolidation in the right upper lobe with central cavitation and several small cavitating lesions throughout both lungs more predominant on the right side. These changes were all new and very extensive compared to December 2022. Images were personally reviewed and compared to CT scan from December 2022 in January 2024. Patient additionally had a moderate size right pleural effusion and bilateral mediastinal lymphadenopathy. 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 With the above history of LTBI, new cavitating consolidative disease primary concern was for TB reactivation. We sent sputum AFB smear, culture and MTB PCR to the health department on induced sputum on November 20, 2024. AFB smear was 3+ positive for mycobacteria. Culture is awaited, expected to be back in about 6 weeks. MTB PCR was negative. NTM PCR was positive for MAC. 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 Patient meets both clinical and radiological criteria for MAC disease. Severity of symptom warrants starting treatment. He was started on treatment with rifabutin 300 mg p.o. daily (chosen instead of rifampin as patient is going to be on Eliquis additionally), azithromycin 500 mg p.o. daily and ethambutol 1200 mg p.o. daily for pulmonary MAC. Culture and sensitivity is currently awaited to determine macrolide sensitivity. However since patient's symptoms are severe, and disease has progressed rapidly between April 2024 to now, would be prudent to start empiric treatment with changes if warranted later down the line. Additional amikacin is ideally preferred to be added for his cavitary disease, however patient has several social barriers preventing frequent follow-ups with physicians, inability to get rides to check amikacin levels reliably therefore addition of systemic amikacin not considered safe at this time due to lack of appropriate monitoring in place. If remains persistently sputum positive down the line, will add inhaled Arykace. Ideally would have preferred to obtain 2 negative MTB PCR from induced sputum, however per health department protocol 1 negative MTB PCR is sufficient to exclude active TB disease. 2 additional AFB smears were sent to the health department and are currently pending. Assuming eventual growth of MAC on cultures, we have been informed that we will be unable to get sensitivity testing from the health department as the testing performed is a MALDI-TOF only. Additonal AFB smear and cx sent to [facility] for cx and sensitivity. Results exepcted in 6 weeks. For his pulmonary embolism, treatment has been initiated with heparin anticoagulation in the hospital, with switch to Eliquis 10 mg twice daily for 7 days followed by 5 mg twice daily for 3 months. Anticoagulation beyond 3 months to be discussed with primary care physician. Lower extremity ultrasound was negative for DVT. chocardiogram is showing normal LVEF systolic function and wall thickness without regional wall motion abnormalities. Estimated LVEF of 55%. grade 1 diastolic dysfunction noted. He received IV Lasix during course of his admission, transition to as needed Lasix at home. Right-sided pleural effusion thought to be related to MAC, drainage deferred for now as patient is starting anticoagulation, unlikely to bladder changer at this time. Will plan to repeat CT in the next 3 to 6 months to assess for serial change. Follow-up in infectious disease clinic on January 09, 2025 at 10:30 AM. Patient states he has a referral to see pulmonology at [facility] on January 23, 2025. Patient had leukocytosis up to 18,000. Gram-negative rods were seen on sputum culture. Possibility of superadded pneumonia in the background of MAC disease not excluded. He received treatment with piperacillin/tazobactam in the hospital with transition to levofloxacin at the time of discharge. Will follow final cultures. Additionally received IV steroids due to initial concerns for COPD exacerbation, however suspect that patient's symptoms are most likely related to newly discovered cavitary disease and PE. Steroids have been discontinued at the time of discharge. Patient feels much better compared to admission and is eager to be discharged home today.He is on baseline 4lpm supplemental 02. Referral provided to ophthalmology at discharge to monitor for optic neuritis while on ethambutol. Physical Exam Narrative: General: No acute distress, AO x3 HEENT: PERRLA, pupils bilaterally equal and reactive, pallors not present Chest: Normal vesicular breath sounds, no added sounds, equal good air entry sandi aterally CVS: S1-S2 regular, no murmurs, no tachycardia, no gallops, no rubs Abdomen: Soft, nontender, no organomegaly, bowel sounds present Neuro: No focal deficits, no facial deformity, AO x3, power 5/5 in all limbs Discharge Data Studies Completed and Pending Completed Studies During Hospitalization Category Date Time Status CTA PE [CT angio chest PE protcl 10813] Stat Cat Scan 11/19/24 19:28 Completed XR chest 1V portable [id number] Stat Exams 11/19/24 17:15 [place] [id number] Routine Ultrasound 11/20/24 21:46 Completed CV. echo complete* [id number] Routine Ultrasound 11/20/24 21:59 Completed Pending at discharge Category Date Time Status AFB [Mycobacteria, Culture w/Fluor] Routine Lab 11/20/24 16:35 Received AFB [Mycobacteria, Culture w/Fluor] Routine Lab 11/21/24 17:23 Uncollected Blastomyces AB Panel CF and ID Stat Lab 11/20/24 16:40 Received Blood Culture Stat Lab 11/19/24 19:01 Results Body Fluid Analysis Routine Lab 11/21/24 14:33 Uncollected Body Fluid Culture & GS Routine Lab 11/20/24 15:42 Ordered Coccidioides AB CF Serum Routine Lab 11/20/24 16:40 Received Cyto Order Verification Routine Lab 11/20/24 15:42 Ordered Cyto Order Verification Routine Lab 11/21/24 14:34 Ordered Fungitell Glucan Assay (Blood) Routine Lab 11/20/24 16:40 Received GALACTOMANAN [Aspergillus AG,EIA,Serum] Stat Lab 11/20/24 16:40 Received Histoplasma Antibody Immunodif Routine Lab 11/20/24 16:40 Received Histoplasma Galactomannan Ag Routine Lab 11/20/24 15:38 Received Histoplasma Quantitative AG Routine Lab 11/20/24 15:38 Received LDH Pleural Fluid Routine Lab 11/20/24 15:42 Ordered MTB Complex & Rifampin Sputum Routine Lab 11/20/24 16:35 Received Mycobacteria, Culture w/Fluor Routine Lab 11/20/24 15:42 Ordered Platelet Count Q2D Lab 11/24/24 04:00 Ordered Pleural Fld Adenosine Deami Routine Lab 11/21/24 14:33 Ordered Sputum Culture and Gram Stain Stat Lab 11/20/24 16:35 Results Total Protein Pleural Fluid Routine Lab 11/20/24 15:42 Ordered pH Pleural Fluid Routine Lab 11/20/24 15:42 Ordered Cytology [PTH] Routine Pth 11/20/24 15:42 Ordered Radiology Impressions Chest X-Ray 11/19/24 17:15 IMPRESSION: 1. Diffuse interstitial coarsening with patchy airspace opacities may represent pulmonary edema and/or atypical infection. 2. Right apical pleural thickening with adjacent nodular opacities. Underlying malignancy not excluded. Consider CT chest for further evaluation. Chest CTA 11/19/24 19:28 IMPRESSION: 1. Dense consolidation in the right upper lobe with central cavitation and several smaller cavitating and non cavitating nodules throughout the lungs bilaterally, new since December 26, 2022. Findings could represent multifocal pneumonia versus malignancy. Please correlate clinically. 2. Moderate sized right pleural effusion. 3. Small pulmonary embolism seen in a segmental artery to the right upper lobe. Normal RV/LV ratio. 4. COPD. 5. Mild mediastinal and bilateral hilar lymphadenopathy, increased since the prior study. COMMENTS: The presence of pulmonary emphysema on CT is an independent risk factor for lung cancer. In the absence of a history or active diagnosis of lung cancer, it is recommended that this patient with emphysema be evaluated for enrollment in a low dose CT lung cancer screening program. ADDENDUM: 11/19/24 9178 THIS REPORT CONTAINS FINDINGS THAT MAY BE CRITICAL TO PATIENT CARE. As of 9:39 PM RN UROLOGY on 11/19/2024, STELLA MYERS confirmed receipt of the exam report, is aware of the critical finding and indicated no conference call was necessary to discussed the exam findings. Laboratory Results WBC 14.03 10^3/uL (3.29-11.43) H 11/22/24 04:46 RBC 4.40 10^6/uL (3.85-5.65) 11/22/24 04:46 Hgb 12.10 g/dL (11.27-16.99) 11/22/24 04:46 Hct 39.3 % (37-53) 11/22/24 04:46 MCV 89.3 fl (82-101) 11/22/24 04:46 MCH 27.5 pg (27-33) 11/22/24 04:46 MCHC 30.8 g/dL (30-55) 11/22/24 04:46 RDW 14.4 % (12.1-15.1) 11/22/24 04:46 Plt Count 354 10^3/cmm (157-399) 11/22/24 04:46 MPV 9.5 fL (7.4-10.4) 11/22/24 04:46 Neut % (Auto) 71.8 % 11/22/24 04:46 Lymph % (Auto) 22.4 % 11/22/24 04:46 [place] % (Auto) 5.3 % 11/22/24 04:46 Eos % (Auto) 0.0 % 11/22/24 04:46 Baso % (Auto) 0.1 % 11/22/24 04:46 Neut # (Auto) 10.07 10^3/uL (1.8-7.7) H 11/22/24 04:46 Lymph # (Auto) 3.1 10^3/uL (0.8-4.8) 11/22/24 04:46 [place] # (Auto) 0.8 10^3/uL (0.2-0.9) 11/22/24 04:46 Eos # (Auto) 0.0 10^3/uL (0.0-0.8) 11/22/24 04:46 Baso # (Auto) 0.0 10^3/uL (0.0-0.1) 11/22/24 04:46 Nucleated RBC % (auto) 0 % 11/22/24 04:46 Nucleated RBCs # 0.0 /100WBC 11/22/24 04:46 PT 14.50 SECONDS (12.1-14.9) 11/21/24 20:22 INR 1.05 (0.8-1.2) 11/21/24 20:22 APTT 69.1 SECONDS (23.9-36.7) H 11/22/24 14:11 Sodium 142 mmol/L (136-145) 11/22/24 04:46 Potassium 3.8 mmol/L (3.5-5.1) 11/22/24 04:46 Chloride 102 mmol/L (98-107) 11/22/24 04:46 Carbon Dioxide 29 mmol/L (22-29) 11/22/24 04:46 Anion Gap 14.8 (5-19) 11/22/24 04:46 BUN 23 mg/dL (8-23) 11/22/24 04:46 Creatinine 1.1 mg/dL (0.7-1.2) 11/22/24 04:46 GFR Calculation 67.0 mL/min (90-130) L 11/22/24 04:46 Glucose 123 mg/dL (65-115) H 11/22/24 04:46 Calculated Osmolality 299 mOsm/kg (285-295) H 11/22/24 04:46 Uric Acid 6.9 mg/dL (3.4-7.0) 11/22/24 04:46 Calcium 8.8 mg/dL (8.5-10.5) 11/22/24 04:46 Magnesium 2.0 mg/dL (1.7-2.3) 11/20/24 04:28 Total Bilirubin 0.5 mg/dL (0.15-1.2) 11/22/24 04:46 AST 16 U/L (0-40) 11/22/24 04:46 ALT 16 U/L (0-41) 11/22/24 04:46 Alkaline Phosphatase 90 U/L (40-130) 11/22/24 04:46 Lactate Dehydrogenase 145 U/L (135-225) 11/20/24 16:40 NT-Pro-B Natriuret Pep 2778 pg/mL (0-125) H 11/19/24 17:35 Total Protein 6.7 g/dL (6.6-8.7) 11/22/24 04:46 Albumin 3.2 g/dL (3.5-5.2) L 11/22/24 04:46 Globulin 3.5 g/dL (1.3-4.6) 11/22/24 04:46 Nasal MRSA (PCR) Not detected (Negative) 11/20/24 16:38 Hepatitis A IgM Ab Non-reactive (Nonreactive) 11/22/24 04:46 Hep Bs Antigen Non-reactive (Nonreactive) 11/22/24 04:46 Hep Bs Antibody < 3.5 (11.5-1000) L 11/22/24 04:46 Hep B Core Total Ab Non-reactive (Nonreactive) 11/22/24 04:46 Hepatitis C Antibody Non-reactive (Nonreactive) 11/22/24 04:46 HIV 1&2 Ab & HIV 1 Ag Non-reactive (Non-Reactiv) 11/21/24 11:48 HIV 1&2 Antibody Non-reactive (Non-Reactiv) 11/21/24 11:48 Influenza A (PCR) Negative (Negative) 11/19/24 18:09 Influenza Type B (PCR) Negative (Negative) 11/19/24 18:09 RSV (PCR) Negative (Negative) 11/19/24 18:09 SARS-CoV-2 (PCR) Negative (Negative) 11/19/24 18:09 Vitals Last Vital Signs Temp 98.0 F 11/22/24 11:36 Pulse 85 11/22/24 13:36 Resp 16 11/22/24 13:36 BP 140/75 11/22/24 11:36 Pulse Ox 97 11/22/24 13:36 O2 Del Method Nasal Cannula 11/22/24 13:36 O2 Flow Rate 3 11/22/24 13:36 Discharge Plan Discharge Patient Disposition: Home Condition: Stable Prescriptions: New Radha DVT-PE Treat 30D Start 5 mg (74 tabs) tablets,dose pack 5 mg PO BID Qty: 74 2RF Rx Instructions: take 10mg BID for 7 days followed by 5mg BID for 3 months levofloxacin 750 mg tablet 750 mg PO DAILY 5 Days Qty: 5 0RF furosemide [Lasix] 40 mg tablet 40 mg PO DAILY PRN (Reason: edema) Qty: 14 0RF Rx Instructions: for lower extremity edema Continued bisacodyl [Dulcolax (bisacodyl)] 5 mg tablet,delayed release (DR/EC) 5 mg PO DAILY Qty: 4 0RF Rx Instructions: take as directed for colonoscopy metoprolol tartrate 25 mg tablet 12.5 mg PO DAILY Qty: 45 3RF atorvastatin 40 mg tablet 40 mg PO BEDTIME Qty: 90 3RF Entresto 24-26 mg tablet See Rx Instructions .ROUTE .COMPLEX Qty: 180 3RF Dose Instruction: Take 1 tablet by mouth twice daily Rx Instructions: Take 1 tablet by mouth twice daily pantoprazole 40 mg tablet,delayed release (DR/EC) See Rx Instructions .ROUTE .COMPLEX Qty: 30 0RF Dose Instruction: Take 1 tablet by mouth once daily Rx Instructions: Take 1 tablet by mouth once daily albuterol sulfate 90 mcg/actuation HFA aerosol inhaler See Rx Instructions .ROUTE .COMPLEX Qty: 9 0RF Dose Instruction: INHALE 1 PUFF BY MOUTH EVERY 6 HOURS NEEDED FOR SHORTNESS OF BREATH OR WHEEZING Rx Instructions: INHALE 1 PUFF BY MOUTH EVERY 6 HOURS NEEDED FOR SHORTNESS OF BREATH OR WHEEZING lamotrigine 25 mg tablet See Rx Instructions .ROUTE .COMPLEX Qty: 30 0RF Dose Instruction: Take 1 tablet by mouth once daily Rx Instructions: Take 1 tablet by mouth once daily Trelegy Ellipta 200-62.5-25 mcg blister with device See Rx Instructions .ROUTE .COMPLEX Qty: 60 0RF Dose Instruction: INHALE 1 PUFF ONCE DAILY Rx Instructions: INHALE 1 PUFF ONCE DAILY azithromycin 500 mg tablet 500 mg PO DAILY 30 Days Qty: 30 5RF ethambutol 400 mg tablet 1,200 mg PO DAILY 30 Days Qty: 56 5RF rifabutin 150 mg capsule 300 mg PO DAILY 30 Days Qty: 60 5RF aspirin 81 mg Capsule 81 mg PO DAILY Discharge Orders: Discharge Order (Routine); Ordered 11/22/24 Ordered By: Gill Lamar Referrals: [facility] Disease Group [facility] [Provider Group] - 01/07/25 10:30 am [facility] [Outside] - 12/23/24 10:00 am (PLEASE ARRIVE 15 MINUTES PRIOR TO APPOINTMENT TO COMPLETE NECESSARY PAPERWORK. ALSO BRING YOUR CURRENT MEDICATION LIST AND INSURANCE CARDS WITH YOU. patient on ethambutol for MAC- regular ophthal checks for optic neuritis/drug toxicity) Tracy Keys FNP [Primary Care Provider] - 11/27/24 9:20 am Discharge Diet: Usual diet Discharge Activity: Resume usual activity Patient Instructions: Ethambutol (By mouth), Rifabutin (By mouth), Levofloxacin (By mouth), Apixaban (By mouth), Pulmonary Embolism (DC), Pneumonitis (DC), Opioid Safety Discharge Attestations Time Spent in Discharge Care*: greater than 30 min Quality Metrics Clinical Quality Measures [ No reported AMI, CVA or VTE this stay] Coding Level of Care Code Acute Code for Chg Fwd Diagnoses 3-vessel CAD I25.10 Nonrheumatic aortic valve stenosis I35.0 Cardiac valve disease etiology: nonrheumatic Pulmonary hypertension I27.20 Ischemic cardiomyopathy I25.5 Chronic systolic (congestive) heart failure I50.22 Cardiomyopathy I42.9 PAD (peripheral artery disease) I73.9 GERD (gastroesophageal reflux disease) K21.9 Pulmonary edema J81.1 Pulmonary nodules/lesions, multiple R91.8 Pulmonary embolism I26.99 Cavitary pneumonia J18.9; J98.4 Pulmonary tuberculosis A15.0 Pleural effusion J90
[2024-11-24 03:05] LABS: Mycobacterium Complex PCR NOT DETECTED; Rifampin Resistance PCR NOT TESTED
[2024-11-25 00:45] LABS: Histoplasma Galactomannan Ag <0.2 ng/mL
[2024-11-25 17:39] LABS: Histoplasma Antigen (Quant) NONE DETECTED; Histoplasma Antigen Interpreta NEGATIVE; Histoplasma Antigen Specimen URINE
[2024-11-25 17:39] LABS: Fungitell 1-3-B Glucan Assay <31 pg/ml; Interpretation Negative (Negative)
[2024-11-26 18:55] LABS: Aspergillus AG,EIA,Serum NOT DETECTED; Aspergillus Galactomannan Inde <0.50
[2024-11-27 18:49] LABS: Histoplasma capsulatum H Ab NEGATIVE; Histoplasma capsulatum M Ab NEGATIVE
[2024-11-28 16:19] LABS: Blastomyces AB Immunodiffusion Negative (Negative); Blastomyces Dermatitidis AB <1:8 titer (<1:8)
[2024-11-28 16:49] LABS: Coccidioides AB CF Serum <1:2
== END 2024-11-22 15:50 | disposition home or self-care (01) | DRG 177 ==
LOC: ER 19:45 → MEDSURG 20:35
PROVIDERS: Admitting Provider Internal Medicine; Emergency Provider Emergency Medicine; PCP Registered Nurse; Visit Provider Student in an Organized Health Care Education/Training Program
DX: A31.0 Pulmonary mycobacterial infection (principal); I26.99 Other pulmonary embolism without acute cor pulmonale; I50.33 Acute on chronic diastolic (congestive) heart failure; J96.21 Acute and chronic respiratory failure with hypoxia; J44.1 Chronic obstructive pulmonary disease with (acute) exacerbation; I42.9 Cardiomyopathy, unspecified; J18.9 Pneumonia, unspecified organism; I73.9 Peripheral vascular disease, unspecified; G40.909 Epilepsy, unspecified, not intractable, without status epilepticus; F17.210 Nicotine dependence, cigarettes, uncomplicated; I35.0 Nonrheumatic aortic (valve) stenosis; I25.10 Atherosclerotic heart disease of native coronary artery without angina pectoris; I27.20 Pulmonary hypertension, unspecified; J98.4 Other disorders of lung; I25.5 Ischemic cardiomyopathy; K21.9 Gastro-esophageal reflux disease without esophagitis; R91.8 Other nonspecific abnormal finding of lung field; Z11.52 Encounter for screening for COVID-19; Z86.11 Personal history of tuberculosis; Z99.81 Dependence on supplemental oxygen; Z79.899 Other long term (current) drug therapy; Z79.82 Long term (current) use of aspirin; Z86.73 Personal history of transient ischemic attack (TIA), and cerebral infarction without residual deficits; Z87.440 Personal history of urinary (tract) infections
CPT/HCPCS: 36415; 71045; 71275; 80048; 80053; 83615; 83735; 83880; 84550; 85025; 85610; 85730; 86403; 86612; 86635; 86698; 86705; 86706; 86709; 86803; 87015; 87040; 87070; 87077; 87116; 87186; 87205; 87206; 87305; 87340; 87385; 87449; 87637; 87801; 87806; 93005; 93306; 93970; 94640; 94664; 96365; 96372; 96375; 99285; G0378; J0456; J0696; J1644; J1940; J2543; J2919; J7050; J7626; J9999; Q0144

== ENCOUNTER 2024-12-16 12:42 | Emergency (ER) | payer MEDICARE, MEDICAID, SELFPAY ==
[2024-12-16 12:49] VITALS: BP 124/67; PULSE 88; RESP 20; TEMP 36.4; O2SAT 96; BMI 31.3
--- NOTE | 2024-12-16 13:00 | XR_ITS ---
WS: [id number] XR chest 1V portable [id number] REASON FOR EXAM: dyspnea/cough FINDINGS: Large complex cavitary mass in the right lung apex with smaller cavitary complex mass in the supra aortic left upper lung. Cavitary mass projected just above the right hilum. Coarse interstitial lung opacities with irregular aeration in the upper lobes. The right pleural effusion appears somewhat decreased compared to the previous examination of 11/19/2024. CT scan on 11/19/2024 demonstrated multiple cavitary lesions, mediastinal and hilar adenopathy, and large right pleural effusion. XR/XR chest 1V portable [id number] IMPRESSION: Stable abnormal chest highly suspect for neoplasm.
--- NOTE | 2024-12-16 13:01 | ECG_ITS ---
[employer] Test Date: 2024-12-16 Pat Name: Frantz Macias Department: Room: Gender: Male Vasc Tech: : 1960 Requested By: Quan Colin Order Number: [id number] Reading MD: Measurements Intervals Barry Rate: 81 P: 76 WI: 204 QRS: 88 QRSD: 134 T: 24 QT: 403 QTc: 468 Interpretive Statements SINUS RHYTHM INTRAVENTRICULAR CONDUCTION DELAY [130+ ms QRS DURATION] POSSIBLE INFERIOR MYOCARDIAL INFARCTION , OF INDETERMINATE AGE [30 ms Q WAVE IN II/aVF] [email or web address]
--- NOTE | 2024-12-16 13:20 | ED_ITS ---
HPI - SOB/Dyspnea 2 General: Chief Complaint: Shortness of Breath/Dyspnea Stated Complaint: fell out of chair, sent by teresa palacios o2 Time Seen by Provider: 12/16/24 12:56 History of Present Illness: HPI Narrative: 64-year-old male presents emergency room complaining of hypoxia and shortness of breath. He states been going on for some time. He denies any hemoptysis no fever sweats or chills he has had some weight loss. He has no shortness of breath with almost any exertion. He denies any hemoptysis he denies PE or DVT. After seeing the patient reviewing the chart find that the patient has active TB he was seen earlier this month discharged on November 22, 2024 with a PE and active tuberculosis for which she had been started on medications for discharge summary read there is an extensive note from Dr. Lamar. Associated symptoms: Reports chest congestion; Deny abdominal pain, chest pain or fever(s) Related Data Home Medications ?Medication ?Instructions ?Recorded ?Confirmed aspirin 81 mg capsule 81 mg PO DAILY 02/07/2311/18 fluticasone fur. 200 mcg-umeclid 1 ea inhalation DAILY 12/16/24 12/16/24 62.5 mcg-vilant 25 mcg inhalat.powder (Trelegy Ellipta) lamotrigine 25 mg tablet 25 mg PO DAILY 12/16/2411/18 levofloxacin 750 mg tablet 750 mg PO DAILY 12/16/24 pantoprazole 40 mg tablet,delayed 40 mg PO DAILY 12/1612/16/24 release sacubitril 24 mg-valsartan 26 mg 1 tab PO BID 12/16/24 12/16/24 tablet (Entresto) Previous Rx's ?Medication ?Instructions ?Recorded atorvastatin 40 mg tablet 40 mg PO BEDTIME #90 tabs albuterol sulfate 90 mcg/actuation See Rx Instructions .Route 11/08/24 aerosol inhaler .COMPLEX #9 grams apixaban 5 mg (74 tabs) tablets in 5 mg PO BID #74 ea 11/22/24 a dose pack (Tuniiquis DVT-PE Treat 30D Start) azithromycin 500 mg tablet 500 mg PO DAILY 30 days #30 tabs 11/22/24 ethambutol 400 mg tablet 1,200 mg (3 x 400 mg) PO RESHMA LY 30 11/22/24 days #56 tabs furosemide 40 mg tablet (Lasix) 40 mg PO DAILY PRN mona ma #14 tabs 11/22/24 rifabutin 150 mg capsule 300 mg (2 x 150 mg) PO DAILY 30 11/22/24 days #60 caps ondansetron HCl 4 mg tablet 4 mg PO Q8H 7 days #21 tab s 11/27/24 potassium chloride 10 mEq 10 meq PO DAILY 90 days #90 tabs 11/27/24 tablet,extended release(part/cryst) (Klor-Con M) metoprolol tartrate 25 mg tablet 12.5 mg (1/2 x 25 mg) PO DAILY #45 12/16/24 tabs Allergies Allergy/AdvReac Type Severity Reaction Status Date / Time No Known Allergies Allergy Verified 12/16/24 12:54 Review of Systems 2 Const: Denies: fever(s) or chills Card: Denies: chest pain Resp: Reports: dyspnea, non-productive cough, wheezing and chest congestion GI: Denies: abdominal pain : Denies: dysuria, urinary frequency or urinary urgency Musc: Denies: neck pain or back pain Skin/Breast: Denies: rash PFSH ED 2 PFSH: Medical History PAD (peripheral artery disease) Chronic idiopathic constipation Onychomycosis Smoking addiction Hemiparesis TIA (transient ischemic attack) COPD (chronic obstructive pulmonary disease) Seizure disorder Chronic headache disorder UTI (urinary tract infection), bacterial Seizure Family History Other Diabetes Heart disease Social History Smoking and tobacco/nicotine status: current every day tobacco/nicotine user cigarettes Packs smoked per day: 1 Years cigarettes smoked: 62 [ Other cigarette details: pt reports started fluently smoking at age 1] Alcohol intake: former Substance/Drug Use: never Adopted: No Caregiver/support person: No Lives independently: No Household members: spouse Marital status: service: No Current occupational status: disabled Sexually active: Yes Do you think of yourself as: Straight/Heterosexual Current gender identity: Male Physical Exam 2 Const: GENERAL APPEARANCE: cooperative ORIENTATION/CONSCIOUSNESS: Yes awake, Yes oriented to person, Yes oriented to place and Yes oriented to time HENMT: COMMON NORMALS: normocephalic, atraumatic and hearing grossly normal bilaterally HEAD & SCALP: normocephalic and atraumatic Resp: AUSCULTATION: wheezes Cardio: COMMON NORMALS: regular rate, regular rhythm and No murmurs present (Cardio) RATE: regular rate RHYTHM: regular rhythm GI: COMMON NORMALS: Soft to palpation and No hepatosplenomegaly present A USCULTATION: Yes normoactive bowel sounds PALPATION: Yes Soft to palpation, No Tenderness to palpation present (GI), No Guarding due to palpation present (GI) and Yes No hepatosplenomegaly present Extremity: COMMON NORMALS: normal to inspection, capillary refill normal, no calf tenderness and no pedal edema GENERAL: Yes clubbing Neuro: SENSORIUM/ORIENTATION: Yes oriented to person, Yes oriented to place and Yes oriented to time Skin: COMMON NORMALS: no rashes or lesions noted GENERAL SKIN EXAM: no rashes or lesions noted Course 2 Vital Signs: Vital signs: Vital Signs Temperature 97.6 F 12/16/24 12:49 Pulse Rate 76 12/16/24 16:00 Respiratory Rate 22 H 12/16/24 13:56 Blood Pressure 121/62 12/16/24 16:00 Pulse Oximetry 95 12/16/24 16:00 Oxygen Delivery Me thod Nasal Cannula 12/16/24 16:00 Oxygen Flow Rate 3 12/16/24 16:00 MDM - SOB/Dyspnea Medical Decision Making CT head negative remainder of exam and labs does not show anything significantly abnormal no acute findings noted. He has multiple causes for his sensation of shortness of breath the previous TB infection he was with ongoing latent TB treatment pulmonary embolism and congestive heart failure. None of these things seem to decompensate following his last in the hospital. recommend he continue his current treatment regimen and follow-up with Dr. Lamar his primary care team as scheduled. Patient states he feels well at this time and is willing to go home. Medical Records I reviewed the patient's medical records. Lab Data I reviewed the patient's lab results. 12/16/24 13:14 12/16/24 13:14 Labs/Radiology: Radiology Impressions Chest X-Ray 12/16/24 13:00 IMPRESSION: Stable abnormal chest highly suspect for neoplasm. Head CT 12/16/24 16:28 IMPRESSION: 1. No acute findings. 2. Old infarcts noted Laboratory Results WBC 6.68 10^3/uL (3.29-11.43) 12/16/24 13:14 RBC 4.63 10^6/uL (3.85-5.65) 12/16/24 13:14 Hgb 13.00 g/dL (11.27-16.99) 12/16/24 13:14 Hct 40.7 % (37-53) 12/16/24 13:14 MCV 87.9 fl (82-101) 12/16/24 13:14 MCH 28.1 pg (27-33) 12/16/24 13:14 MCHC 31.9 g/dL (30-55) 12/16/24 13:14 RDW 14.1 % (12.1-15.1) 12/16/24 13:14 Plt Count 169 10^3/cmm (157-399) 12/16/24 13:14 MPV 10.0 fL (7.4-10.4) 12/16/24 13:14 Neut % (Auto) 32.5 % 12/16/24 13:14 Lymph % (Auto) 47.9 % 12/16/24 13:14 [place] % (Auto) 14.2 % 12/16/24 13:14 Eos % (Auto) 4.8 % 12/16/24 13:14 Baso % (Auto) 0.3 % 12/16/24 13:14 Neut # (Auto) 2.17 10^3/uL (1.8-7.7) 12/16/24 13:14 Lymph # (Auto) 3.2 10^3/uL (0.8-4.8) 12/16/24 13:14 [place] # (Auto) 1.0 10^3/uL (0.2-0.9) H 12/16/24 13:14 Eos # (Auto) 0.3 10^3/uL (0.0-0.8) 12/16/24 13:14 Baso # (Auto) 0.0 10^3/uL (0.0-0.1) 12/16/24 13:14 Nucleated RBC % (auto) 0 % 12/16/24 13:14 Nucleated RBCs # 0.0 /100WBC 12/16/24 13:14 Sodium 139 mmol/L (136-145) 12/16/24 13:14 Potassium 4.4 mmol/L (3.5-5.1) 12/16/24 13:14 Chloride 100 mmol/L (98-107) 12/16/24 13:14 Carbon Dioxide 25 mmol/L (22-29) 12/16/24 13:14 Anion Gap 18.4 (5-19) 12/16/24 13:14 BUN 13 mg/dL (8-23) 12/16/24 13:14 Creatinine 1.1 mg/dL (0.7-1.2) 12/16/24 13:14 GFR Calculation 67.0 mL/min (90-130) L 12/16/24 13:14 Glucose 92 mg/dL (65-115) 12/16/24 13:14 Calculated Osmolality 288 mOsm/kg (285-295) 12/16/24 13:14 Lactic Acid 0.9 12/16/24 13:14 Calcium 8.7 mg/dL (8.5-10.5) 12/16/24 13:14 Total Bilirubin 0.5 mg/dL (0.15-1.2) 12/16/24 13:14 AST 31 U/L (0-40) 12/16/24 13:14 ALT 23 U/L (0-41) 12/16/24 13:14 Alkaline Phosphatase 94 U/L (40-130) 12/16/24 13:14 Troponin T Baseline 42 ng/L (0-15) H 12/16/24 13:14 Troponin T 120 Minute 38.32 ng/L (0-15) H 12/16/24 15:13 Delta Troponin T -3.68 ABS# (0-10) L 12/16/24 15:13 Total Protein 7.3 g/dL (6.6-8.7) 12/16/24 13:14 Albumin 3.7 g/dL (3.5-5.2) 12/16/24 13:14 Globulin 3.6 g/dL (1.3-4.6) 12/16/24 13:14 Urine Color Other (Yellow) A 12/16/24 16:14 Urine Appearance Clear (CLEAR) 12/16/24 16:14 Urine pH 6 (5-7) 12/16/24 16:14 Ur Specific [place] 1.005 (1.005-1.030) 12/16/24 16:14 Urine Protein Neg (Negative) 12/16/24 16:14 Urine Glucose (UA) Norm (Normal) 12/16/24 16:14 Urine Ketones Negative (Negative) 12/16/24 16:14 Urine Blood 2+ (Negative) H 12/16/24 16:14 Urine Nitrate Negative (Negative) 12/16/24 16:14 Urine Bilirubin Neg (Negative) 12/16/24 16:14 Urine Urobilinogen Norm mg/dL (Negative) 12/16/24 16:14 Ur Leukocyte Esterase Negative (Negative) 12/16/24 16:14 Urine RBC 0-2 /hpf (0-2) 12/16/24 16:14 Urine WBC 0-5 /hpf (0-5) 12/16/24 16:14 Ur Squamous Epith Cells 0-5 /hpf (0-5) 12/16/24 16:14 Amorphous Sediment Not Reportable 12/16/24 16:14 Urine Bacteria None seen /hpf (NONE) 12/16/24 16:14 Hyaline Casts 0-4 /lpf H 12/16/24 16:14 All radiology interpretation(s) finalized by discharge Discharge Plan Discharge Patient Disposition: Home Clinical Impression: Mycobacterium avium infection, Cardiomyopathy, 3-vessel CAD, Pulmonary hypertension Pulmonary embolism Qualifiers: Pulmonary embolism type: other Chronicity: acute Acute cor pulmonale presence: unspecified Qualified Code(s): I26.99 - Other pulmonary embolism without acute cor pulmonale Condition: Stable Prescriptions: No Action ondansetron HCl 4 mg tablet 4 mg PO Q8H 7 Days Qty: 21 0RF potassium chloride [Klor-Con M10] 10 mEq tablet,ER particles/crystals 10 meq PO DAILY 90 Days Qty: 90 0RF atorvastatin 40 mg tablet 40 mg PO BEDTIME Qty: 90 3RF albuterol sulfate 90 mcg/actuation HFA aerosol inhaler See Rx Instructions .ROUTE .COMPLEX Qty: 9 0RF Dose Instruction: INHALE 1 PUFF BY MOUTH EVERY 6 HOURS NEEDED FOR SHORTNESS OF BREATH OR WHEEZING Rx Instructions: INHALE 1 PUFF BY MOUTH EVERY 6 HOURS NEEDED FOR SHORTNESS OF BREATH OR WHEEZING azithromycin 500 mg tablet 500 mg PO DAILY 30 Days Qty: 30 5RF ethambutol 400 mg tablet 1,200 mg PO DAILY 30 Days Qty: 56 5RF rifabutin 150 mg capsule 300 mg PO DAILY 30 Days Qty: 60 5RF metoprolol tartrate 25 mg tablet 12.5 mg PO DAILY Qty: 45 3RF Eliquis DVT-PE Treat 30D Start 5 mg (74 tabs) tablets,dose pack 5 mg PO BID Qty: 74 2RF Rx Instructions: take 10mg BID for 7 days followed by 5mg BID for 3 months furosemide [Lasix] 40 mg tablet 40 mg PO DAILY PRN (Reason: edema) Qty: 14 0RF Rx Instructions: for lower extremity edema lamotrigine 25 mg tablet 25 mg PO DAILY Rx Instructions: Take 1 tablet by mouth once daily pantoprazole 40 mg tablet,delayed release (DR/EC) 40 mg PO DAILY Rx Instructions: Take 1 tablet by mouth once daily Entresto 24-26 mg tablet 1 tab PO BID Rx Instructions: Take 1 tablet by mouth twice daily Trelegy Ellipta 200-62.5-25 mcg blister with device 1 ea inhalation DAILY Rx Instructions: INHALE 1 PUFF ONCE DAILY levofloxacin 750 mg tablet 750 mg PO DAILY aspirin 81 mg Capsule 81 mg PO DAILY Discharge Orders: Discharge ED (Routine); Ordered 12/16/24 Ordered By: Quan Ivory Referrals: Tracy Keys FNP [Primary Care Provider] - Patient Instructions: Opioid Safety, Pain Management Activity Restrictions/Additional Instructions: Thank you for choosing [facility] for your healthcare needs today. It is very important that you follow up as instructed or that you return to the Emergency Department should you have concerns or if your condition changes or worsens in any way. You were seen in the emergency room with complaints of shortness of breath. Your shortness of breath is multifactorial in the TV infection for which you are being treated now along with your congestive heart failure and recent pulmonary emboli will all contribute to shortness of breath. You should continue the medications that you are prescribed at the time of last hospital discharge and follow-up as scheduled. Print Language: [place] Coding Level of Care Code ED Candle Cutter for Moses Pineda
[2024-12-16 13:33] LABS: Basophils % 0.3 %; Eosinophils # 0.3 10^3/uL (0.0-0.8); Eosinophils % 4.8 %; Hematocrit 40.7 % (37-53); Lymphocytes # 3.2 10^3/uL (0.8-4.8); Lymphocytes % 47.9 %; Mean Corpuscular HGB Conc 31.9 g/dL (30-55); Mean Corpuscular Hemoglobin 28.1 pg (27-33); Mean Corpuscular Volume 87.9 fl (82-101); Monocytes % 14.2 %; Neutrophils # 2.17 10^3/uL (1.8-7.7); Neutrophils % 32.5 %; Nucleated Red Blood Cells % 0 %; Platelet Count 169 10^3/cmm (157-399); Red Blood Count 4.63 10^6/uL (3.85-5.65); Red Cell Distribution Width 14.1 % (12.1-15.1); White Blood Count 6.68 10^3/uL (3.29-11.43)
[2024-12-16 13:51] LABS: Lactic Sepsis W/Reflex 0.9
[2024-12-16 13:53] VITALS: BP 114/76; PULSE 84; O2SAT 96
[2024-12-16 13:53] LABS: Troponin(5th) Baseline 42 ng/L (0-15)
[2024-12-16] MEDS: ipratropium-albuterol 3 mL Neb INHALATION (13:53)
[2024-12-16] MEDS: methylPREDNISolone sod succ 125 mg/2 mL INJ IVP (13:53)
[2024-12-16 13:56] VITALS: PULSE 78; RESP 22; O2SAT 96
[2024-12-16 14:14] LABS: Alanine Aminotransferase 23 U/L (0-41); Albumin Level 3.7 g/dL (3.5-5.2); Alkaline Phosphatase 94 U/L (40-130); Anion Gap 18.4 (5-19); Aspartate Amino Transferase 31 U/L (0-40); Blood Urea Nitrogen 13 mg/dL (8-23); Calcium 8.7 mg/dL (8.5-10.5); Carbon Dioxide 25 mmol/L (22-29); Chloride 100 mmol/L (98-107); Globulin 3.6 g/dL (1.3-4.6); Glucose 92 mg/dL (65-115); Osmolality Calculated 288 mOsm/kg (285-295); Potassium 4.4 mmol/L (3.5-5.1); Sodium 139 mmol/L (136-145); Total Bilirubin 0.5 mg/dL (0.15-1.2); Total Protein 7.3 g/dL (6.6-8.7)
--- NOTE | 2024-12-16 15:01 | ECG_ITS ---
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
[2024-12-16 16:00] VITALS: BP 121/62; PULSE 76; O2SAT 95
[2024-12-16 16:00] LABS: Troponin 5 2HR 38.32 ng/L (0-15)
[2024-12-16 16:01] LABS: Troponin 5 2HR Delta -3.68 ABS# (0-10)
--- NOTE | 2024-12-16 16:28 | CTR_ITS ---
PROCEDURE INFORMATION: Exam: CT Head Without Contrast Exam date and time: 12/16/2024 4:54 PM Age: 64 years old Clinical indication: Injury or trauma; Fall; Blunt trauma (contusions or hematomas); Without loss of consciousness; Additional info: Fall/oral anticoag TECHNIQUE: Imaging protocol: Computed tomography of the head without contrast. Radiation optimization: All CT scans at this facility use at least one of these dose optimization techniques: automated exposure control; mA and/or kV adjustment per patient size (includes targeted exams where dose is matched to clinical indication); or iterative reconstruction. COMPARISON: CT angio headneck* [id number] 06/02/2020 5:01 PM RADIATION DOSE METRICS: Total DLP (mGy-cm): 1028.58 FINDINGS: Brain: A small old lacunar infarct involves the left caudate nucleus. A small old infarct involves the anterior limb of the right internal capsule.I see no evidence of acute hemorrhage, mass effect or infarct on today's study. Cerebral ventricles: No ventriculomegaly. No midline shift. Paranasal sinuses: Visualized sinuses are unremarkable. No fluid levels. Mastoid air cells: Visualized mastoid air cells are well aerated. Bones: Unremarkable. No acute fracture. Soft tissues: Unremarkable. CT/CT head wo con* [id number] IMPRESSION: 1. No acute findings. 2. Old infarcts noted
[2024-12-16 16:34] LABS: Bacteria Urine None Seen /hpf; Hyaline Casts Urine 0-4 /lpf; RBC Urine 0-2 /hpf (0-2); Squamous Epithelial Cell Urine 0-5 /hpf (0-5); WBC Urine 0-5 /hpf (0-5)
[2024-12-16 16:40] LABS: Add Urine Culture? No; Add Urine Microscopic? YES; Bilirubin Urine Neg (Negative); Blood Urine 2+ (Negative); Glucose Urine UA Norm (Normal); Ketones Urine Negative (Negative); Leukocyte Esterase Urine Negative (Negative); Nitrate Urine Negative (Negative); Protein Urine Neg (Negative); Specific Gravity, Urine 1.005 (1.005-1.030); Urine Appearance Clear (CLEAR); Urine Color Other (Yellow); Urobilinogen Urine Norm (Negative); pH Urine 6 (5-7)
[2024-12-16 18:06] VITALS: BP 125/70; PULSE 85; RESP 18; O2SAT 93
== END 2024-12-16 18:13 | disposition home or self-care (01) ==
PROVIDERS: Emergency Provider Family Medicine; PCP Registered Nurse
DX: A31.0 Pulmonary mycobacterial infection (principal); I42.9 Cardiomyopathy, unspecified; I25.10 Atherosclerotic heart disease of native coronary artery without angina pectoris; I10 Essential (primary) hypertension; I26.99 Other pulmonary embolism without acute cor pulmonale; Z79.01 Long term (current) use of anticoagulants; Z79.82 Long term (current) use of aspirin; F17.210 Nicotine dependence, cigarettes, uncomplicated; Z86.73 Personal history of transient ischemic attack (TIA), and cerebral infarction without residual deficits; J44.9 Chronic obstructive pulmonary disease, unspecified
CPT/HCPCS: 36415; 70450; 71045; 80053; 81001; 83605; 84484; 85025; 93005; 94640; 96374; 99285; J2919; J9999

== ENCOUNTER → 2025-01-07 09:39 | Outpatient (BNVA) | payer MEDICARE, MEDICAID, SELFPAY | PROVIDERS: PCP Registered Nurse; Visit Provider Student in an Organized Health Care Education/Training Program | DX: A31.0 Pulmonary mycobacterial infection (principal); R91.8 Other nonspecific abnormal finding of lung field; J98.4 Other disorders of lung; Z79.899 Other long term (current) drug therapy | CPT/HCPCS: 36415; 80053; 85025; 99205 ==

== ENCOUNTER → 2025-01-08 10:19 | Outpatient (BNVA) | payer MEDICARE, MEDICAID, SELFPAY | PROVIDERS: PCP Registered Nurse; Visit Provider Student in an Organized Health Care Education/Training Program | DX: A31.0 Pulmonary mycobacterial infection (principal) | CPT/HCPCS: 87015; 87116; 87206; 87801 ==

== ENCOUNTER 2025-01-17 09:16 | Outpatient (CLI) | payer MEDICARE, MEDICAID, SELFPAY | END 2025-01-17 09:17 | PROVIDERS: PCP Registered Nurse; Visit Provider Student in an Organized Health Care Education/Training Program | DX: I35.0 Nonrheumatic aortic (valve) stenosis (principal); I11.0 Hypertensive heart disease with heart failure; I50.22 Chronic systolic (congestive) heart failure; I42.9 Cardiomyopathy, unspecified; I25.10 Atherosclerotic heart disease of native coronary artery without angina pectoris; Z86.711 Personal history of pulmonary embolism; R42 Dizziness and giddiness; R55 Syncope and collapse; F17.210 Nicotine dependence, cigarettes, uncomplicated; Z79.01 Long term (current) use of anticoagulants | CPT/HCPCS: 78815; 99214; A9552 ==

== ENCOUNTER 2025-01-24 22:27 | Emergency (ER) | payer MEDICARE, MEDICAID, SELFPAY ==
[2025-01-24 22:33] VITALS: BP 104/68; PULSE 105; RESP 22; TEMP 36.9; O2SAT 97; BMI 28.3
[2025-01-24 23:03] LABS: Basophils # 0.1 10^3/uL (0.0-0.1); Basophils % 0.7 %; Eosinophils # 0.3 10^3/uL (0.0-0.8); Eosinophils % 2.2 %; Hematocrit 37.6 % (37-53); Lymphocytes # 2.3 10^3/uL (0.8-4.8); Lymphocytes % 17.1 %; Mean Corpuscular HGB Conc 32.4 g/dL (30-55); Mean Corpuscular Hemoglobin 28.8 pg (27-33); Mean Corpuscular Volume 88.9 fl (82-101); Mean Platelet Volume 10.2 fL (7.4-10.4); Monocytes # 1.4 10^3/uL (0.2-0.9); Monocytes % 10.1 %; Neutrophils # 9.42 10^3/uL (1.8-7.7); Neutrophils % 69.7 %; Nucleated Red Blood Cells % 0 %; Platelet Count 194 10^3/cmm (157-399); Red Blood Count 4.23 10^6/uL (3.85-5.65); Red Cell Distribution Width 14.7 % (12.1-15.1); White Blood Count 13.51 10^3/uL (3.29-11.43)
[2025-01-24 23:19] LABS: Alanine Aminotransferase 15 U/L (0-41); Albumin Level 3.9 g/dL (3.5-5.2); Alkaline Phosphatase 107 U/L (40-130); Anion Gap 15.6 (5-19); Aspartate Amino Transferase 20 U/L (0-40); Blood Urea Nitrogen 31 mg/dL (8-23); Calcium 9.6 mg/dL (8.5-10.5); Carbon Dioxide 27 mmol/L (22-29); Chloride 99 mmol/L (98-107); Creatinine Clr Calc Pharmacy 74.5139; Glomerular Filtration Rate 74.8 mL/min (90-130); Glucose 134 mg/dL (65-115); Osmolality Calculated 293 mOsm/kg (285-295); Potassium 4.6 mmol/L (3.5-5.1); Sodium 137 mmol/L (136-145); Total Bilirubin 0.4 mg/dL (0.15-1.2); Total Protein 7.9 g/dL (6.6-8.7)
[2025-01-24] MEDS: ondansetron 2 mg/ML SDV 2 mL 4 MG IVP (23:22)
[2025-01-24 23:24] VITALS: BP 104/68; PULSE 98; RESP 20; O2SAT 95
[2025-01-24] MEDS: morphine 4 mg/mL SDV 1 mL IVP (23:24)
[2025-01-25 00:30] VITALS: BP 133/69; PULSE 88; O2SAT 92
--- NOTE | 2025-01-25 00:40 | USR_ITS ---
PROCEDURE INFORMATION: Exam: US Duplex Right Lower Extremity Arteries Or Arterial Bypass Grafts Exam date and time: 01/25/2025 12:47 AM Age: 64 years old Clinical indication: Pain; Leg, lower and foot; Right; Additional info: Pain, foot cool to touch TECHNIQUE: Imaging protocol: Right Real-time duplex scan of the arteries or arterial bypass grafts of the right lower extremity with 2-D ballard scale, color Doppler flow and spectral waveform analysis. Images documented and saved. COMPARISON: US renal BI* [id number] 12/26/2022 1:30 PM FINDINGS: Right common femoral artery: Right common iliac, common femoral, superficial femoral, popliteal, posterior tibial and dorsalis pedis arteries demonstrate color blood flow with monophasic waveforms reflecting a degree of stenosis. Right superficial femoral artery: See above. Right popliteal artery: See above. Right calf/foot arteries: See above. Soft tissues: No hematoma or [place]. US/[place] [id number] IMPRESSION: Right common iliac, common femoral, superficial femoral, popliteal, posterior tibial and dorsalis pedis arteries demonstrate color blood flow with monophasic waveforms reflecting a degree of stenosis.
[2025-01-25 01:00] VITALS: BP 122/72; PULSE 96; O2SAT 92
--- NOTE | 2025-01-25 01:01 | CTR_ITS ---
PROCEDURE INFORMATION: Exam: CTA Right Lower Extremity With Contrast Exam date and time: 01/25/2025 1:41 AM Age: 64 years old Clinical indication: Other: Abnormal US; C/O severe RT foot pain x 2 days. Monophasic waveforms noted to entire right lower extremity on ultrasound. ; Additional info: Right foot pain TECHNIQUE: Imaging protocol: Computed tomographic angiography of the right lower extremity with contrast. 3D rendering (Not supervised by radiologist): MIP and/or 3D reconstructed images were created by the technologist. Radiation optimization: All CT scans at this facility use at least one of these dose optimization techniques: automated exposure control; mA and/or kV adjustment per patient size (includes targeted exams where dose is matched to clinical indication); or iterative reconstruction. Contrast material: OMNI 350; Contrast volume: 100 ml; Contrast route: INTRAVENOUS (IV); COMPARISON: US CV arterial duplex [facility] [id number] 01/25/2025 12:47 AM RADIATION DOSE METRICS: Total DLP (mGy-cm): 784.45 FINDINGS: Calcification of the abdominal aorta and/or iliac arteries consistent with atherosclerotic vessel disease. 70% stenosis in the origin of the right superficial femoral artery. Occlusion of the right superficial femoral artery in the proximal right thigh, 9 cm distal to the origin. Reconstitution of the right superficial artery 14 cm below the level of the occlusion, in the distal right thigh. Occlusion of the anterior tibial artery in the distal calf, 9 cm proximal to the ankle. Two-vessel runoff to the right ankle with occluded dorsalis pedis artery. Three-vessel runoff to the left ankle. CT/CT angio [facility] [id number] IMPRESSION: 1. 70% stenosis in the origin of the right superficial femoral artery. 2. Occlusion of the right superficial femoral artery in the proximal right thigh, 9 cm distal to the origin. 3. Reconstitution of the right superficial artery 14 cm below the level of the occlusion, in the distal right thigh. 4. Occlusion of the anterior tibial artery in the distal calf, 9 cm proximal to the ankle. 5. Two-vessel runoff to the right ankle with occluded dorsalis pedis artery. 6. Three-vessel runoff to the left ankle.
--- NOTE | 2025-01-25 01:16 | W.ED.EXTPRO ---
HPI - Extremity Problem General: Chief complaint: Extremity Injury, Lower Stated complaint: FOOT PAIN Time Seen by Provider: 01/24/25 22:35 History of Present Illness: Patient presents emerged part with complaint of right foot pain. Patient states that the pain started gradually this morning and gradually worsened throughout the day. He is due to denies having any injury. Does smoke. Does have a history of peripheral arterial disease. Related Data Home Medications ?Medication ?Instructions ?Recorded ?Confirmed lamotrigine 25 mg tablet 25 mg PO DAILY 12/16/24 01/17/25 levofloxacin 750 mg tablet 750 mg PO DAILY 12/16/24 01/17/25 pantoprazole 40 mg tablet,delayed 40 mg PO DAILY 12/16/24 01/17/25 release sacubitril 24 mg-valsartan 26 mg 1 tab PO BID 12/16/24 01/17/25 tablet (Entresto) Previous Rx's ?Medication ?Instructions ?Recorded atorvastatin 40 mg tablet 40 mg PO BEDTIME #90 tabs 03/28/24 apixaban 5 mg (74 tabs) tablets in 5 mg PO BID #74 ea 11/22/24 a dose pack (tribalX DVT-PE Treat 30D Start) ondansetron HCl 4 mg tablet 4 mg PO Q8H 7 days #21 tabs 11/27/24 potassium chloride 10 mEq 10 meq PO DAILY 90 days #90 tabs 11/27/24 tablet,extended release(part/cryst) (Klor-Con M) metoprolol tartrate 25 mg tablet 12.5 mg (1/2 x 25 mg) PO DAILY #45 12/16/24 tabs furosemide 40 mg tablet (Lasix) 40 mg PO DAILY PRN edema 30 days 12/18/24 #30 tabs wheelchair #1 ea 12/18/24 amikacin liposomal 590 mg/8.4 mL 590 mg inhalation DAILY #235.2 mL 01/21/25 susp for inhalation, nebulizer acces. azithromycin 500 mg tablet 500 mg PO DAILY 100 days #100 tabs 01/21/25 ethambutol 400 mg tablet 1,200 mg (3 x 400 mg) PO ONCE 100 01/21/25 days #300 tabs rifabutin 150 mg capsule 300 mg (2 x 150 mg) PO DAILY 100 01/21/25 days #200 caps albuterol sulfate 90 mcg/actuation See Rx Instructions .Route 01/22/25 aerosol inhaler .COMPLEX #9 grams fluticasone fur. 200 mcg-umeclid See Rx Instructions .Route 01/22/25 62.5 mcg-vilant 25 mcg .COMPLEX #60 ea inhalat.powder (Trelegy Ellipta) hydrocodone 5 mg-acetaminophen 325 1 tab PO Q6H #20 tabs 05/10/25 mg tablet Allergies Allergy/AdvReac Type Severity Reaction Status Date / Time No Known Allergies Allergy Verified 01/17/25 08:01 [facility] PFSH: Medical History PAD (peripheral artery disease) Chronic idiopathic constipation Onychomycosis Smoking addiction Hemiparesis TIA (transient ischemic attack) COPD (chronic obstructive pulmonary disease) Seizure disorder Chronic headache disorder UTI (urinary tract infection), bacterial Seizure Family History Other Diabetes Heart disease Social History Smoking and tobacco/nicotine status: current every day tobacco/nicotine user cigarettes Packs smoked per day: 1 Years cigarettes smoked: 62 [ Other cigarette details: pt reports started fluently smoking at age 1] Alcohol intake: former Substance/Drug Use: never Adopted: No Caregiver/support person: No Lives independently: No Household members: spouse Marital status: service: No Current occupational status: disabled Sexually active: Yes Do you think of yourself as: Straight/Heterosexual Current gender identity: Male Physical Exam Const: COMMON NORMALS: no acute distress, average body habitus, patient oriented x3, no limitations, healthy appearing, alert and well nourished Neck/C-Spine: COMMON NORMALS: no JVD Resp: COMMON NORMALS: normal respiratory effort, No retractions, No use of accessory muscles, clear to auscultation bilaterally and percussion normal AUSCULTATION: clear to auscultation bilaterally PERCUSSION: percussion normal Cardio: COMMON NORMALS: no JVD, regular rate, regular rhythm, S1 normal heart sound present, S2 normal heart sound present, No gallops present (Cardio), No clicks present (Cardio), No murmurs present (Cardio), No rub (Cardio) and Peripheral pulses 2+ throughout RATE: regular rate RHYTHM: regular rhythm HEART SOUNDS: S1 normal heart sound present and S2 normal heart sound present PERIPHERAL PULSES: Peripheral pulses 2+ throughout GI: COMMON NORMALS: Normal to inspection, nondistended, normoactive bowel sounds present, Soft to palpation, non-tender, No hepatosplenomegaly present, no masses and no bruits PALPATION: Yes Soft to palpation and Yes No hepatosplenomegaly present Extremity: OTHER: Right lower extremity diffusely tender throughout. Is cooler to the touch than the left foot. Has very weak pulses in the right foot. Has delayed capillary refill. The foot is not cyanotic however and does have cap refill just slower than the left foot. No pain higher up in the leg. Neuro: COMMON NORMALS: patient oriented x3 SENSORIUM/ORIENTATION: Yes alert Course Vital Signs: Vital signs: Vital Signs Temperature 98.4 F 01/24/25 22:33 Pulse Rate 93 01/25/25 02:53 Respiratory Rate 20 H 01/24/25 23:24 Blood Pressure 135/62 01/25/25 02:53 Pulse Oximetry 91 01/25/25 02:53 Oxygen Delivery Me thod Room Air 01/25/25 02:53 Oxygen Flow Rate 3 01/24/25 23:24 MDM - Extremity (Nontraumatic) Medical Decision Making Patient presents emerged part with complaint of right foot pain. Upon exam it is cooler with slow capillary refill. Compared to the left foot. Arterial ultrasound shows concerning for peripheral arterial disease with decreased flow although there is some flow to the foot. Patient does have slow but decreased capillary refill. It is cool to the touch but not cyanotic. Suspect patient's symptoms secondary to peripheral arterial disease. Will get CT angio to further evaluate. CT does show fairly significant peripheral arterial disease however he does have blood flow getting to the foot. Upon recheck patient's foot is now warm and his pain has improved significantly. Discussed findings with patient. Discussed with patient to continue his blood thinners, he is already on Eliquis. Advised patient to take aspirin as well. Will get patient follow-up with vascular surgery. Lab Data 01/24/25 22:55 01/24/25 22:55 Radiology Impressions Duplex Scan Lower Extremity Artery 01/25/25 00:40 IMPRESSION: Right common iliac, common femoral, superficial femoral, popliteal, posterior tibial and dorsalis pedis arteries demonstrate color blood flow with monophasic waveforms reflecting a degree of stenosis. Lower Extremity CTA 01/25/25 01:01 IMPRESSION: 1. 70% stenosis in the origin of the right superficial femoral artery. 2. Occlusion of the right superficial femoral artery in the proximal right thigh, 9 cm distal to the origin. 3. Reconstitution of the right superficial artery 14 cm below the level of the occlusion, in the distal right thigh. 4. Occlusion of the anterior tibial artery in the distal calf, 9 cm proximal to the ankle. 5. Two-vessel runoff to the right ankle with occluded dorsalis pedis artery. 6. Three-vessel runoff to the left ankle. Laboratory Results WBC 13.51 10^3/uL (3.29-11.43) H 01/24/25 22:55 RBC 4.23 10^6/uL (3.85-5.65) 01/24/25 22:55 Hgb 12.20 g/dL (11.27-16.99) 01/24/25 22:55 Hct 37.6 % (37-53) 01/24/25 22:55 MCV 88.9 fl (82-101) 01/24/25 22:55 MCH 28.8 pg (27-33) 01/24/25 22:55 MCHC 32.4 g/dL (30-55) 01/24/25 22:55 RDW 14.7 % (12.1-15.1) 01/24/25 22:55 Plt Count 194 10^3/cmm (157-399) 01/24/25 22:55 MPV 10.2 fL (7.4-10.4) 01/24/25 22:55 Neut % (Auto) 69.7 % 01/24/25 22:55 Lymph % (Auto) 17.1 % 01/24/25 22:55 [place] % (Auto) 10.1 % 01/24/25 22:55 Eos % (Auto) 2.2 % 01/24/25 22:55 Baso % (Auto) 0.7 % 01/24/25 22:55 Neut # (Auto) 9.42 10^3/uL (1.8-7.7) H 01/24/25 22:55 Lymph # (Auto) 2.3 10^3/uL (0.8-4.8) 01/24/25 22:55 [place] # (Auto) 1.4 10^3/uL (0.2-0.9) H 01/24/25 22:55 Eos # (Auto) 0.3 10^3/uL (0.0-0.8) 01/24/25 22:55 Baso # (Auto) 0.1 10^3/uL (0.0-0.1) 01/24/25 22:55 Nucleated RBC % (auto) 0 % 01/24/25 22:55 Nucleated RBCs # 0.0 /100WBC 01/24/25 22:55 Sodium 137 mmol/L (136-145) 01/24/25 22:55 Potassium 4.6 mmol/L (3.5-5.1) 01/24/25 22:55 Chloride 99 mmol/L (98-107) 01/24/25 22:55 Carbon Dioxide 27 mmol/L (22-29) 01/24/25 22:55 Anion Gap 15.6 (5-19) 01/24/25 22:55 BUN 31 mg/dL (8-23) H 01/24/25 22:55 Creatinine 1.0 mg/dL (0.7-1.2) 01/24/25 22:55 GFR Calculation 74.8 mL/min (90-130) L 01/24/25 22:55 Glucose 134 mg/dL (65-115) H 01/24/25 22:55 Calculated Osmolality 293 mOsm/kg (285-295) 01/24/25 22:55 Calcium 9.6 mg/dL (8.5-10.5) 01/24/25 22:55 Total Bilirubin 0.4 mg/dL (0.15-1.2) 01/24/25 22:55 AST 20 U/L (0-40) 01/24/25 22:55 ALT 15 U/L (0-41) 01/24/25 22:55 Alkaline Phosphatase 107 U/L (40-130) 01/24/25 22:55 Total Protein 7.9 g/dL (6.6-8.7) 01/24/25 22:55 Albumin 3.9 g/dL (3.5-5.2) 01/24/25 22:55 Globulin 4.0 g/dL (1.3-4.6) 01/24/25 22:55 All radiology interpretation(s) finalized by discharge Discharge Plan Discharge Clinical Impression: PAD (peripheral artery disease) Condition: Stable Prescriptions: New hydrocodone-acetaminophen 5-325 mg tablet 1 tab PO Q6H Qty: 20 0RF No Action furosemide [Lasix] 40 mg tablet 40 mg PO DAILY PRN (Reason: edema) 30 Days Qty: 30 2RF Rx Instructions: for lower extremity edema (DME) wheelchair See Rx Instructions .Route .MEDSUPPLY Qty: 1 0RF Rx Instructions: As directed ondansetron HCl 4 mg tablet 4 mg PO Q8H 7 Days Qty: 21 0RF potassium chloride [Klor-Con M10] 10 mEq tablet,ER particles/crystals 10 meq PO DAILY 90 Days Qty: 90 0RF amikacin liposomal-neb.accessr 590 mg/8.4 mL suspension for nebulization 590 mg inhalation DAILY Qty: 235.2 0RF azithromycin 500 mg tablet 500 mg PO DAILY 100 Days Qty: 100 2RF ethambutol 400 mg tablet 1,200 mg PO ONCE 100 Days Qty: 300 2RF rifabutin 150 mg capsule 300 mg PO DAILY 100 Days Qty: 200 2RF atorvastatin 40 mg tablet 40 mg PO BEDTIME Qty: 90 3RF metoprolol tartrate 25 mg tablet 12.5 mg PO DAILY Qty: 45 3RF albuterol sulfate 90 mcg/actuation HFA aerosol inhaler See Rx Instructions .ROUTE .COMPLEX Qty: 9 0RF Dose Instruction: INHALE 1 PUFF BY MOUTH EVERY 6 HOURS NEEDED FOR SHORTNESS OF BREATH OR WHEEZING Rx Instructions: INHALE 1 PUFF BY MOUTH EVERY 6 HOURS NEEDED FOR SHORTNESS OF BREATH OR WHEEZING Trelegy Ellipta 200-62.5-25 mcg blister with device See Rx Instructions .ROUTE .COMPLEX Qty: 60 0RF Dose Instruction: INHALE 1 PUFF ONCE DAILY Rx Instructions: INHALE 1 PUFF ONCE DAILY Cassidyis DVT-PE Treat 30D Start 5 mg (74 tabs) tablets,dose pack 5 mg PO BID Qty: 74 2RF Rx Instructions: take 10mg BID for 7 days followed by 5mg BID for 3 months lamotrigine 25 mg tablet 25 mg PO DAILY Rx Instructions: Take 1 tablet by mouth once daily pantoprazole 40 mg tablet,delayed release (DR/EC) 40 mg PO DAILY Rx Instructions: Take 1 tablet by mouth once daily Entresto 24-26 mg tablet 1 tab PO BID Rx Instructions: Take 1 tablet by mouth twice daily levofloxacin 750 mg tablet 750 mg PO DAILY Discharge Orders: Discharge ED (Routine); Ordered 01/25/25 Ordered By: Rashad Will Referrals: Tracy Keys FNP [Primary Care Provider, Family Practice] Josh Daniel MD [Referring, Vascular Surgery] Activity Restrictions/Additional Instructions: Follow-up with vascular surgery on Monday. Continue to take your blood thinners. Return to the ER immediately if pain worsens. Print Language: Stateless Coding Level of Care Code ED Brick Machine Operator for Moses Pineda
[2025-01-25] MEDS: iohexol 350 mg/mL 500 mL Btl (per mL) IV (01:55)
[2025-01-25 02:53] VITALS: BP 135/62; PULSE 93; O2SAT 91
[2025-01-25 06:05] VITALS: BP 136/68; PULSE 89; O2SAT 97
[2025-01-25 07:05] VITALS: BP 140/67; PULSE 87; O2SAT 97
[2025-01-25 08:05] VITALS: BP 127/67; PULSE 87; O2SAT 94
== END 2025-01-25 08:24 | disposition home or self-care (01) ==
PROVIDERS: Emergency Provider Emergency Medicine; PCP Registered Nurse
DX: I73.9 Peripheral vascular disease, unspecified (principal); Z79.01 Long term (current) use of anticoagulants; F17.210 Nicotine dependence, cigarettes, uncomplicated; Z86.73 Personal history of transient ischemic attack (TIA), and cerebral infarction without residual deficits
CPT/HCPCS: 36415; 73706; 80053; 85025; 93926; 96374; 96375; 99285; J2270; J2405

== ENCOUNTER → 2025-04-24 10:03 | Outpatient (BNVA) | payer MEDICARE, MEDICAID, SELFPAY | PROVIDERS: PCP Registered Nurse; Visit Provider Student in an Organized Health Care Education/Training Program | DX: A31.0 Pulmonary mycobacterial infection (principal) | CPT/HCPCS: 87015; 87116; 87206; 87801 ==

== ENCOUNTER → 2025-04-28 12:23 | Outpatient (BNVA) | payer MEDICARE, MEDICAID, SELFPAY | PROVIDERS: PCP Registered Nurse; Visit Provider Internal Medicine | DX: J44.9 Chronic obstructive pulmonary disease, unspecified (principal); Z99.81 Dependence on supplemental oxygen; J96.11 Chronic respiratory failure with hypoxia; A31.0 Pulmonary mycobacterial infection; Z86.711 Personal history of pulmonary embolism; Z79.01 Long term (current) use of anticoagulants; F17.210 Nicotine dependence, cigarettes, uncomplicated | CPT/HCPCS: 99215 ==

== ENCOUNTER 2025-05-02 12:17 | Outpatient (CLI) | payer OTHER, MEDICAID, SELFPAY ==
--- NOTE | 2025-05-02 12:21 | CTR_ITS ---
PROCEDURE INFORMATION: Exam: CT Chest Without Contrast; Diagnostic Exam date and time: 05/02/2025 12:45 PM Age: 64 years old Clinical indication: Shortness of breath; Follow up mac; PT is o2 dep 24/7 3l x3 yrs; Prn pm 25 yrs 3l TECHNIQUE: Imaging protocol: Diagnostic computed tomography of the chest without contrast. Radiation optimization: All CT scans at this facility use at least one of these dose optimization techniques: automated exposure control; mA and/or kV adjustment per patient size (includes targeted exams where dose is matched to clinical indication); or iterative reconstruction. COMPARISON: PT PET skull to thigh INIT [id number] 01/17/2025 10:32 AM RADIATION DOSE METRICS: Total DLP (mGy-cm): 347.75 FINDINGS: Lungs: Evolving cavitary lesion in the superior segment right lower lobe measuring about 4.3 x 3.5 cm, not significantly changed from the prior PET-CT. Additional scattered consolidative and ground-glass opacities, some of which are cavitary, also appear similar to prior. Large heterogeneous cavitary lesion in the right lung apex. No definite new airspace disease. Scattered tree-in-bud nodularity bilaterally. Similar emphysematous changes throughout the lungs. Pleural spaces: Unremarkable. No pneumothorax. No pleural effusion. Heart: Aortic valve calcifications. Scattered atherosclerotic calcifications throughout the thoracic aorta. No thoracic aortic aneurysm. Lymph nodes: Prominent mediastinal and bilateral hilar lymph nodes without lymphadenopathy by size criteria. Vasculature: See Heart finding. Diaphragm: Small sliding-type hiatal hernia. Pancreas: Fatty atrophy of the pancreas. No ductal dilatation. Bones/joints: Degenerative changes of the thoracic spine. Diffuse osseous demineralization. No acute or aggressive osseous lesion. Soft tissues: Unremarkable. CT/CT chest wo con [id number] IMPRESSION: 1. Patchy areas of consolidation throughout bilateral lungs, including cavitary lesions, overall similar in appearance to prior examinations and again likely representing a multifocal infectious process. No definite new airspace disease. 2. Scattered tree-in-bud nodularity bilaterally likely also represents atypical infection. 3. Borderline enlarged mediastinal and hilar lymph nodes, likely reactive. 4. Similar emphysema. COMMENTS: The presence of pulmonary emphysema on CT is an independent risk factor for lung cancer. In the absence of a history or active diagnosis of lung cancer, it is recommended that this patient with emphysema be evaluated for enrollment in a low dose CT lung cancer screening program.
== END 2025-05-02 12:18 | disposition home or self-care (01) ==
LOC: RAD 12:17
PROVIDERS: PCP Registered Nurse; Visit Provider Student in an Organized Health Care Education/Training Program
DX: J43.9 Emphysema, unspecified (principal); R91.8 Other nonspecific abnormal finding of lung field; K44.9 Diaphragmatic hernia without obstruction or gangrene; K86.89 Other specified diseases of pancreas
CPT/HCPCS: 71250

== ENCOUNTER 2025-05-14 09:00 | Outpatient (CLI) | payer OTHER, MEDICAID, SELFPAY ==
[2025-05-14 09:19] VITALS: PULSE 80; RESP 20; O2SAT 95
[2025-05-14 09:37] VITALS: O2SAT 87; O2SAT 92; O2SAT 94
== END 2025-05-14 09:01 | disposition home or self-care (01) ==
LOC: RT 09:04
PROVIDERS: PCP Registered Nurse; Visit Provider Internal Medicine
DX: J44.9 Chronic obstructive pulmonary disease, unspecified (principal); J98.8 Other specified respiratory disorders; R94.2 Abnormal results of pulmonary function studies
CPT/HCPCS: 94060; 94618; 94726; 94729; 94760; J7613

== ENCOUNTER 2025-05-23 10:04 | Outpatient (CLI) | payer OTHER, MEDICAID, SELFPAY ==
--- NOTE | 2025-05-23 10:14 | CTR_ITS ---
PROCEDURE INFORMATION: Exam: CT Chest Without Contrast; Diagnostic Exam date and time: 05/23/2025 10:31 AM Age: 64 years old Clinical indication: Condition or disease; Lung condition and disease; Other: Mycobacteriuym avium lung infection; Additional info: F/up mac, 3 months f/up TECHNIQUE: Imaging protocol: Diagnostic computed tomography of the chest without contrast. Radiation optimization: All CT scans at this facility use at least one of these dose optimization techniques: automated exposure control; mA and/or kV adjustment per patient size (includes targeted exams where dose is matched to clinical indication); or iterative reconstruction. COMPARISON: CT chest [facility] [id number] 05/02/2025 12:45 PM RADIATION DOSE METRICS: Total DLP (mGy-cm): 321.5 FINDINGS: Lungs: The extensive partially cavitary bilateral pulmonary infiltrates appear unchanged. Many are thick-walled. Bronchiectasis is present as well. Multiple areas of tree-in-bud nodularity bilaterally. These also are unchanged. Pleural spaces: Unremarkable. No pneumothorax. No pleural effusion. Heart: Unremarkable. No cardiomegaly. No pericardial effusion. Lymph nodes: Moderate central adenopathy is unchanged. Vasculature: Unremarkable. No aortic aneurysm. Bones/joints: Unremarkable. No acute fracture. Soft tissues: Unremarkable. Other findings: The findings are compatible with the given diagnosis of MAC. No significant changes observed. CT/CT chest con [id number] IMPRESSION: No significant interval change. Extensive cavitary inflammatory areas compatible with the diagnosis of MAC.
== END 2025-05-23 10:05 | disposition home or self-care (01) ==
LOC: RAD 10:07
PROVIDERS: Absent Provider Internal Medicine Cardiovascular Disease; PCP Registered Nurse; Visit Provider Student in an Organized Health Care Education/Training Program
DX: A31.0 Pulmonary mycobacterial infection (principal); J47.9 Bronchiectasis, uncomplicated; R91.8 Other nonspecific abnormal finding of lung field; R59.9 Enlarged lymph nodes, unspecified
CPT/HCPCS: 71250

== ENCOUNTER → 2025-05-26 09:31 | Outpatient (BNVA) | payer OTHER, MEDICAID, SELFPAY | PROVIDERS: PCP Registered Nurse; Visit Provider Internal Medicine Cardiovascular Disease | DX: I25.10 Atherosclerotic heart disease of native coronary artery without angina pectoris (principal); I50.30 Unspecified diastolic (congestive) heart failure; I35.0 Nonrheumatic aortic (valve) stenosis; E78.5 Hyperlipidemia, unspecified; Z79.01 Long term (current) use of anticoagulants; Z99.81 Dependence on supplemental oxygen; F17.210 Nicotine dependence, cigarettes, uncomplicated; Z86.73 Personal history of transient ischemic attack (TIA), and cerebral infarction without residual deficits | CPT/HCPCS: 99214 ==

== ENCOUNTER → 2025-05-29 08:50 | Outpatient (BNVA) | payer OTHER, MEDICAID, SELFPAY | PROVIDERS: PCP Registered Nurse; Visit Provider Internal Medicine | DX: J44.9 Chronic obstructive pulmonary disease, unspecified (principal); J98.4 Other disorders of lung; R91.8 Other nonspecific abnormal finding of lung field; Z99.81 Dependence on supplemental oxygen; F17.210 Nicotine dependence, cigarettes, uncomplicated | CPT/HCPCS: 99214 ==

== ENCOUNTER 2025-06-20 08:25 | Outpatient (CLI) | payer OTHER, MEDICAID, SELFPAY ==
--- NOTE | 2025-06-20 08:26 | PETR_ITS ---
PROCEDURE INFORMATION: Exam: PET/CT Skull Base to Mid-thigh Exam date and time: 06/20/2025 9:20 AM Age: 64 years old Clinical indication: Abnormal findings; Abnormal finding of lung field; Multiple pulmonary nodules; Additional info: R91.8 - other nonspecific abnormal finding of lung field LABS AND CLINICAL REPORTS: Glucose: 121 mg/dl Treatment strategy for malignancy (PET staging): Restaging (PS) TECHNIQUE: Imaging protocol: Following at least four-hour fasting and following the injection of radiopharmaceutical, low dose CT images were obtained. Then, PET images were obtained. Attenuation corrected images were constructed using the CT scan. Fused images of PET and CT were reviewed. The standardized uptake values (SUV) reported below are maximum values within a region of interest, expressed in gm/ml. Exam includes orbital meatal line to mid-thigh. SUV normalization method: BodyWeight Radiopharmaceutical: 11.4 mCi F-18 FDG (Fluorodeoxyglucose), IV. Time of imaging post radiopharmaceutical administration: 47 minutes Injection site: L AC COMPARISON: 1. PT PET skull to thigh INIT [id number] 01/17/2025 10:[address] chest wo con [id number] 05/23/2025 10:31 AM FINDINGS: Brain: Visualized brain has normal physiologic uptake. Pharynx: Mild asymmetric FDG avid left palatine tonsillar soft tissue fullness showing SUV max 7.5 on axial image 35. Larynx: No abnormal uptake. Lungs, pleura and trachea: Moderate upper lung predominant emphysematous change. Intervally stable extensive kuzrv-lsebpac-mtcr-left upper lung predominant cavitary consolidations and nodularity with mild progression since January 2025 such as increased consolidative area at the inferior aspect of right lower lobe superior segment cavitary consolidation. Stable dominant right apical cavitary lesion shows SUV max 14.3, previously 7.6. Small right pleural effusion. Heart: Normal physiologic uptake. Coronary arteries: Moderate coronary artery calcification. Mediastinal space: No abnormal uptake. Liver: No abnormal uptake. Gallbladder and biliary ducts: No abnormal uptake. Pancreas: No abnormal uptake. Spleen: No abnormal uptake. Adrenal glands: No abnormal uptake. Kidneys and ureters: Normal physiologic uptake. Bilateral renal cysts. Stomach and bowel: No abnormal uptake. Colonic diverticulosis without findings of diverticulitis. Vasculature: No abnormal uptake. Diffuse systemic atherosclerotic calcification without aortic aneurysm. Lymph nodes: Mildly increased FDG avid mediastinal lymphadenopathy and fzrka-qqawofy-qozy-left hilar FDG uptake with note of couple mediastinal nodes showing small calcifications. Index subcarinal node measures 1 cm in the short axis on axial image 96 and shows SUV max 3.9, intervally stable and increased from 0.8 cm in January 2025. Partially calcified right paratracheal node measures 1.2 cm in the short axis on axial image 84 and shows SUV max 5.5, previously 2.5. Right hilar SUV max 4.3, previously 2.9. Left hilar SUV max 3.7, previously 2.7. Low-level uptake at nonenlarged bilateral inguinal lymph nodes, index showing SUV max 3.1 on the right on axial image 259. Skeleton: No abnormal uptake in the visualized axial and appendicular skeleton. Degenerative changes along the spine. Stable appearance of right femoral head osteonecrosis with associated right hip degenerative change. Stable appearance of suspected right humeral head osteonecrosis. Soft tissues: No abnormal uptake in the visualized head, neck, chest, abdomen, pelvis, and extremities. METRICS: Mediastinal blood pool: SUV mean 2.0 Liver uptake: SUV mean 2.3 PET/PET skull to thigh INIT [id number] IMPRESSION: 1. Intervally stable extensive cavitary lesions and nodules mildly progressed from January 2025 in this patient with known diagnosis of MAC. 2. Small right pleural effusion. 3. Mildly increased FDG avid mediastinal lymphadenopathy and wrwjc-izzebyl-rnxj-left hilar FDG uptake favoring reactive or granulomatous disease, neoplastic process not entirely excluded. 4. Mild asymmetric FDG-avid left palatine tonsillar soft tissue fullness, correlate with clinical exam. 5. Low-level uptake at nonenlarged bilateral inguinal lymph nodes favored to be reactive. 6. Additional chronic and incidental findings as above.
== END 2025-06-20 08:26 | disposition home or self-care (01) ==
LOC: RAD 08:25
PROVIDERS: PCP Registered Nurse; Visit Provider Internal Medicine
DX: R91.8 Other nonspecific abnormal finding of lung field (principal); J43.9 Emphysema, unspecified; I25.10 Atherosclerotic heart disease of native coronary artery without angina pectoris; N28.1 Cyst of kidney, acquired; K57.30 Diverticulosis of large intestine without perforation or abscess without bleeding; R59.0 Localized enlarged lymph nodes; M87.9 Osteonecrosis, unspecified; M47.819 Spondylosis without myelopathy or radiculopathy, site unspecified
CPT/HCPCS: 78815; A9552

== ENCOUNTER → 2025-06-23 09:38 | Outpatient (BNVA) | payer OTHER, MEDICAID, SELFPAY | PROVIDERS: PCP Registered Nurse; Visit Provider Internal Medicine | DX: J44.9 Chronic obstructive pulmonary disease, unspecified (principal); J98.4 Other disorders of lung; R91.8 Other nonspecific abnormal finding of lung field; R04.2 Hemoptysis; J96.11 Chronic respiratory failure with hypoxia; Z99.81 Dependence on supplemental oxygen; F17.210 Nicotine dependence, cigarettes, uncomplicated; R91.1 Solitary pulmonary nodule | CPT/HCPCS: 99214; Q3014 ==

== ENCOUNTER 2025-06-30 08:35 | Outpatient (CLI) | payer OTHER, MEDICAID, SELFPAY ==
--- NOTE | 2025-06-30 09:00 | CT_ITS ---
WS: [id number] CT chest w con* [id number] HISTORY: R06.09 - Other forms of dyspnea, short of breath, emphysema. TECHNIQUE: Axial imaging performed through the thorax. Coronal and sagittal reformats are submitted. All CT scans at [facility] use at least one of these dose optimization techniques: automated exposure control; mA and/or kV adjustment per patient size (includes targeted exams where dose is matched to clinical indication); or iterative reconstruction. CONTRAST: Omnipaque 350; 100 mL IV. DLP: 338.10 mGy.cm COMPARISON: 05/23/2025, 05/02/2025, PET/CT 06/20/2025 Lungs and central airway: Mild volume loss in the RIGHT lung with slightly elevated RIGHT hemidiaphragm. Numerous bilateral cavitary lesions are reidentified. The largest cavitation with thick wall in the RIGHT upper lobe measures 5.5 x 8.7 x 6.2 cm. Thick walled cavitation similar to the prior studies. There are additional smaller areas of cavitation and irregular nodules noted bilaterally. Thick walled cavitation superior segment RIGHT lower lobe abutting the fissure is slightly smaller. Today's measurements 3.2 x 2.9 x 3.2 cm. Prior measurements in a similar location 3.8 x 4.0 x 3.9 cm. Numerous scattered micronodules throughout the upper and mid lung jo. Linear scar with thick wall LEFT apex. Bronchiectasis with tethering in the upper lung jo. Pleura: Very small RIGHT pleural effusion with pleural thickening. No progression. Heart and pericardium: Normal size heart with no pericardial effusion. Mediastinum and lalo: Small and indeterminate mediastinal and hilar lymph nodes. These lymph nodes contain tiny calcifications. No progression or increase in size or number of these lymph nodes. No enlarging axillary lymph nodes. Vessels: Mild atherosclerosis aorta. No aneurysm. Normal size pulmonary artery. Chest wall and lower neck: No soft tissue masses. Upper abdomen: Small hiatal hernia. No adrenal mass. Visualized liver is negative. Osseous structures: No destructive process. CT/CT chest w con* [id number] IMPRESSION: 1. Multi lobar, bilateral thick walled cavitary masses with additional scatter ed tiny nodules throughout both lungs. The largest thick walled cavitation at t he RIGHT apex is unchanged. Consistent with diagnosis of MAC. 2. Slight interval decrease in size of the cavitary mass in the superior segme nt RIGHT lower lobe measuring 3.2 x 2.9 x 3.2 cm. Prior measurement 3.8 x 4.0 x 3.9 cm. 3. Indeterminate mediastinal and hilar lymph nodes are unchanged. These lymph nodes contain calcifications. No progression of adenopathy. 4. Mild volume loss in the RIGHT lung. Scarring and areas of bronchiectasis gr eatest in the upper lung jo. 5. Very tiny RIGHT pleural effusion is unchanged.
[2025-06-30 09:14] LABS: Blood Urea Nitrogen 8 mg/dL (8-23)
[2025-06-30] MEDS: iohexol 350 mg/mL 500 mL Btl (per mL) IV (09:24)
== END 2025-06-30 08:36 | disposition home or self-care (01) ==
LOC: RAD 08:35
PROVIDERS: PCP Registered Nurse; Visit Provider Registered Nurse
DX: R06.09 Other forms of dyspnea (principal); J44.9 Chronic obstructive pulmonary disease, unspecified; J90 Pleural effusion, not elsewhere classified; I89.8 Other specified noninfective disorders of lymphatic vessels and lymph nodes; J47.9 Bronchiectasis, uncomplicated
CPT/HCPCS: 71260; 82565; 84520

== ENCOUNTER → 2025-07-24 09:23 | Outpatient (BNVA) | payer OTHER, MEDICAID, SELFPAY | PROVIDERS: PCP Registered Nurse; Visit Provider Internal Medicine | DX: J44.9 Chronic obstructive pulmonary disease, unspecified (principal); J98.4 Other disorders of lung; R91.8 Other nonspecific abnormal finding of lung field; R04.2 Hemoptysis; A31.9 Mycobacterial infection, unspecified; F17.210 Nicotine dependence, cigarettes, uncomplicated; J47.9 Bronchiectasis, uncomplicated; J18.9 Pneumonia, unspecified organism; J96.11 Chronic respiratory failure with hypoxia | CPT/HCPCS: 71046; 87070; 87205; 99214; Q3014 ==

== ENCOUNTER → 2025-09-01 09:57 | Outpatient (BNVA) | payer OTHER, MEDICAID, SELFPAY | PROVIDERS: PCP Registered Nurse; Visit Provider Internal Medicine | DX: J44.9 Chronic obstructive pulmonary disease, unspecified (principal); J98.4 Other disorders of lung; J96.11 Chronic respiratory failure with hypoxia; R91.8 Other nonspecific abnormal finding of lung field; F17.210 Nicotine dependence, cigarettes, uncomplicated | CPT/HCPCS: 99214; Q3014 ==